=== PATIENT | female | born 1955 | race Caucasian/White ===

== ENCOUNTER → 2016-10-13 | Outpatient (CLI) | payer OTHER ==
[2014-06-01 13:10] VITALS: BP 101/58
[~2016-10-13] MED LIST: ASPI-482 PO; CALC600T4 PO; ESTR1PAT68 TD; LEVO50TA5 PO; MULT-245 PO; OMEG500C3 PO; PRAV80TA2 PO
--- NOTE | 2016-10-13 15:40 | KCIC ---
PROCEDURE Bone density. HISTORY Postmenopausal, screening. Hyperthyroidism. COMPARISON Bone density 10/12/2014. FINDINGS Dual photon densitometry of the lumbar spine and left proximal femur is performed. Bone mineral density values are measured in grams per cm2. Lumbar spine, L1-L4, total bone mineral density 1.140, T-score 0.8, Z-score 2.5. There has been a 4.8 percent increase in the bone mineral density since the prior study. Left total femur bone mineral density 1.086, T-score 1.2, Z-score 2.3. No significant change since prior study. World Health Organization criteria for bone mineral density interpretation classify patient's as normal (T-score at or above -1.0), osteopenic (T-score between -1 and -2.5), or osteoporotic (T-score at or below -2.5). IMPRESSION Normal bone mineral density of the lumbar spine and left femur. Electronically signed by: Claude Cast MD (October 13, 2016 15:39:02)
== END | disposition home or self-care (01) ==
LOC: KCIC DEXA 14:58
PROVIDERS: ATTEND Physician Assistant Surgical
DX: Z78.0 Asymptomatic menopausal state (principal); M85.88 Other specified disorders of bone density and structure, other site
CPT/HCPCS: 77080

== ENCOUNTER → 2016-11-07 | Outpatient (CLI) | payer OTHER ==
[2016-07-29 07:33] VITALS: BP 152/88
[~2016-11-07] MED LIST changes: +AMOX1TAB61 PO; +ESTR-9 TD; -ESTR1PAT68 TD
[2016-11-07 09:06] LABS: BASO % 1 % (0-3); EOS % 3 % (0-3); HEMATOCRIT 43.9 % (36.0-47.0); HEMOGLOBIN 14.9 g/dL (12.0-15.5); LYMPH # 1.6 x10^3/uL (1.0-4.8); LYMPH % 37 % (24-48); MEAN CORPUSCULAR HEMOGLOBIN 31 pg (25-35); MEAN CORPUSCULAR HGB CONC 34 g/dL (31-37); MEAN CORPUSCULAR VOLUME 91 fL (79-100); MONO % 8 % (0-9); NEUT % 51 % (31-73); PLATELET COUNT 225 x10^3/uL (140-400); RED BLOOD COUNT 4.82 x10^6/uL (3.50-5.40); RED CELL DISTRIBUTION WIDTH 12.5 % (11.5-14.5); WHITE BLOOD COUNT 4.4 x10^3/uL (4.0-11.0)
[2016-11-07 09:13] LABS: ALBUMIN 4.3 g/dL (3.4-5.0); ALBUMIN/GLOBULIN RATIO 1.2 (1.0-1.7); CREATININE 0.7 mg/dL (0.6-1.0); GFR 84.5; POTASSIUM 4.1 mmol/L (3.5-5.1); TOTAL BILIRUBIN 0.5 mg/dL (0.2-1.0); TOTAL PROTEIN 7.8 g/dL (6.4-8.2)
[2016-11-07 09:14] LABS: CHOLESTEROL/HDL RATIO 2.4
[2016-11-07 09:23] LABS: FREE T4 0.7 ng/dL (0.76-1.46)
== END | disposition home or self-care (01) ==
LOC: MERGE 08:23 → LAB 08:23
PROVIDERS: ATTEND Physician Assistant Surgical
DX: I10 Essential (primary) hypertension (principal); E03.9 Hypothyroidism, unspecified; E78.5 Hyperlipidemia, unspecified
CPT/HCPCS: 36415; 80053; 80061; 84436; 84439; 84443; 84479; 85027

== ENCOUNTER → 2017-05-15 | Outpatient (CLI) | payer OTHER ==
[2016-07-29 07:33] VITALS: BP 152/88
--- NOTE | 2017-05-15 09:13 | RAD ---
DATE: 05/15/2017 EXAM: DIGITAL SCREEN BILAT W/CAD HISTORY: Screening study. COMPARISON: 05/05/2016 This study was interpreted with the benefit of Computerized Aided Detection (CAD). The breast parenchyma is heterogeneously dense, which could reduce sensitivity of mammography. Breast parenchyma level C. FINDINGS: Digital MLO and CC mammograms of both breasts were obtained. Comparison study is dated 05/05/2016. The breast parenchyma is composed of scattered fibroglandular densities which can obscure a lesion on mammography (breast density code C). No spiculated mass is seen. No malignant appearing calcification or area of architectural distortion is noted. A few benign-appearing calcifications are seen within both breasts. The previous examination has been no significant change. IMPRESSION: BI-RADS Category 1, negative. There is no mammographic evidence malignancy. Routine yearly screening mammography is recommended for follow-up. BI-RADS CATEGORY: 1 NEGATIVE RECOMMENDED FOLLOW-UP: 12M 12 MONTH FOLLOW-UP PQRS compliance statement: Patient information was entered into a reminder system with a target due date 05/15/2018 for the next mammogram. Mammography is a sensitive method for finding small breast cancers, but it does not detect them all and is not a substitute for careful clinical examination. A negative mammogram does not negate a clinically suspicious finding and should not result in delay in biopsying a clinically suspicious abnormality. "Our facility is accredited by the [employer] Mammography [employer]."
== END | disposition home or self-care (01) ==
LOC: MAMMO 08:01
PROVIDERS: ATTEND Obstetrics & Gynecology
DX: Z12.31 Encounter for screening mammogram for malignant neoplasm of breast (principal)
CPT/HCPCS: G0202; 77067

== ENCOUNTER → 2017-06-12 | Outpatient (CLI) | payer OTHER | END | disposition home or self-care (01) | LOC: SPEC 09:48 | DX: Z01.419 Encounter for gynecological examination (general) (routine) without abnormal findings (principal) | CPT/HCPCS: 88175 ==

== ENCOUNTER → 2017-12-04 | Outpatient (CLI) | payer OTHER ==
[2017-12-04 07:27] LABS: ADD MAN DIFF? NO
[2017-12-04 07:42] LABS: BASO % 0 % (0-3); EOS # 0.1 x10^3/uL (0.0-0.7); EOS % 2 % (0-3); HEMATOCRIT 44.4 % (36.0-47.0); HEMOGLOBIN 15.5 g/dL (12.0-15.5); LYMPH # 1.8 x10^3/uL (1.0-4.8); LYMPH % 28 % (24-48); MEAN CORPUSCULAR HEMOGLOBIN 32 pg (25-35); MEAN CORPUSCULAR HGB CONC 35 g/dL (31-37); MEAN CORPUSCULAR VOLUME 91 fL (79-100); MONO # 0.5 x10^3/uL (0.0-1.1); MONO % 7 % (0-9); NEUT % 62 % (31-73); PLATELET COUNT 252 x10^3/uL (140-400); RED CELL DISTRIBUTION WIDTH 12.2 % (11.5-14.5); WHITE BLOOD COUNT 6.4 x10^3/uL (4.0-11.0)
[2017-12-04 07:54] LABS: ALBUMIN 4.4 g/dL (3.4-5.0); ALBUMIN/GLOBULIN RATIO 1.3 (1.0-1.7); ALK PHOS 55 U/L (46-116); ALT (SGPT) 28 U/L (14-59); ANION GAP 9 (6-14); AST (SGOT) 17 U/L (15-37); BLOOD UREA NITROGEN 18 mg/dL (7-20); BUN/CREATININE RATIO 23 (6-20); CALCIUM 8.7 mg/dL (8.5-10.1); CARBON DIOXIDE 27 mmol/L (21-32); CHLORIDE 102 mmol/L (98-107); CHOLESTEROL 225 mg/dL (0-200); CREATININE 0.8 mg/dL (0.6-1.0); GFR 72.2; GLUCOSE 109 mg/dL (70-99); HDLC 82 mg/dL (40-60); LDLC 131 mg/dL (0-100); NON-HDL CHOLESTEROL 143 mg/dL (0-129); POTASSIUM 4.3 mmol/L (3.5-5.1); SODIUM 138 mmol/L (136-145); TOTAL BILIRUBIN 0.7 mg/dL (0.2-1.0); TOTAL PROTEIN 7.8 g/dL (6.4-8.2); TRIGLYCERIDES 62 mg/dL (0-150); VLDLC 12 mg/dL (0-40)
[2017-12-04 07:55] LABS: CHOLESTEROL/HDL RATIO 2.7
[2017-12-04 14:44] LABS: THYROXINE 5.8 ug/dL (4.5-12.0)
[2017-12-04 22:19] LABS: HEMOGLOBIN A1C 5.2 % (4.8-5.6)
== END | disposition home or self-care (01) ==
LOC: LAB 07:06
DX: Z51.81 Encounter for therapeutic drug level monitoring (principal); Z13.1 Encounter for screening for diabetes mellitus; E03.9 Hypothyroidism, unspecified; E78.5 Hyperlipidemia, unspecified; R79.89 Other specified abnormal findings of blood chemistry
CPT/HCPCS: 36415; 80053; 80061; 82306; 83036; 84436; 84443; 85025

== ENCOUNTER 2017-12-28 19:45 | Inpatient (IN) | payer OTHER ==
[2017-12-28 20:05] LABS: ADD MAN DIFF? NO
[2017-12-28 20:08] LABS: BASO % 1 % (0-3); EOS # 0.1 x10^3/uL (0.0-0.7); EOS % 2 % (0-3); HEMATOCRIT 43.9 % (36.0-47.0); HEMOGLOBIN 15.3 g/dL (12.0-15.5); LYMPH # 2.8 x10^3/uL (1.0-4.8); LYMPH % 36 % (24-48); MEAN CORPUSCULAR HEMOGLOBIN 32 pg (25-35); MEAN CORPUSCULAR HGB CONC 35 g/dL (31-37); MEAN CORPUSCULAR VOLUME 92 fL (79-100); MONO # 0.5 x10^3/uL (0.0-1.1); MONO % 7 % (0-9); NEUT # 4.3 x10^3uL (1.8-7.7); NEUT % 56 % (31-73); PLATELET COUNT 257 x10^3/uL (140-400); RED CELL DISTRIBUTION WIDTH 12.5 % (11.5-14.5); WHITE BLOOD COUNT 7.8 x10^3/uL (4.0-11.0)
[2017-12-28] MEDS: IOHEXOL 300 MG/ML 100ML VIAL. IV (20:13)
[2017-12-28] MEDS ORDERED: CONTRAST GIVEN. MC (20:15)
[2017-12-28 20:17] LABS: INR 0.9 (0.8-1.1); PROTHROMBIN TIME PATIENT 11.9 SEC (11.7-14.0)
[2017-12-28 20:20] LABS: ANION GAP 8 (6-14); BLOOD UREA NITROGEN 17 mg/dL (7-20); BUN/CREATININE RATIO 19 (6-20); CARBON DIOXIDE 28 mmol/L (21-32); CHLORIDE 100 mmol/L (98-107); CREATININE 0.9 mg/dL (0.6-1.0); GLUCOSE 125 mg/dL (70-99); POTASSIUM 3.6 mmol/L (3.5-5.1); SODIUM 136 mmol/L (136-145)
[2017-12-28] MEDS: ASPIRIN 325 MG TABLET PO (20:25)
[2017-12-28] MEDS: NITROGLYCERIN OINT 1 GM PACKET. TP (20:27)
[2017-12-28 20:28] LABS: ALBUMIN 4.4 g/dL (3.4-5.0); ALBUMIN/GLOBULIN RATIO 1.2 (1.0-1.7); ALK PHOS 63 U/L (46-116); ALT (SGPT) 36 U/L (14-59); AST (SGOT) 32 U/L (15-37); LIPASE 157 U/L (73-393); MAGNESIUM 2.1 mg/dL (1.8-2.4); TOTAL BILIRUBIN 0.4 mg/dL (0.2-1.0)
[2017-12-28 20:34] LABS: CKMB INDEX 0.9 % (0-4); CKMB MASS 1.7 ng/mL (0.0-3.6); CREATINE KINASE 191 U/L (26-192)
[2017-12-28 20:34] LABS: NT-PRO BNP 20 pg/mL (0-124); TROPONINI < 0.017 ng/mL (0.000-0.055)
[2017-12-29 01:22] LABS: TROPONINI < 0.017 ng/mL (0.000-0.055)
[2017-12-29 04:21] LABS: TROPONINI < 0.017 ng/mL (0.000-0.055)
[2017-12-29 08:35] LABS: CHOLESTEROL 224 mg/dL (0-200); HDLC 76 mg/dL (40-60); LDLC 132 mg/dL (0-100); NON-HDL CHOLESTEROL 148 mg/dL (0-129); TRIGLYCERIDES 81 mg/dL (0-150); VLDLC 16 mg/dL (0-40)
[2017-12-29 08:36] LABS: CHOLESTEROL/HDL RATIO 2.9
[2017-12-29] MEDS ORDERED: ATORVASTATIN CALCIUM 40 MG TABLET. PO (21:00)
== END 2017-12-29 16:40 | disposition home or self-care (01) | DRG 313 ==
LOC: ER 19:45 → 5 SOUTH 21:10
DX: R07.89 Other chest pain (principal); I47.1 Supraventricular tachycardia; E03.9 Hypothyroidism, unspecified; E78.00 Pure hypercholesterolemia, unspecified; E78.5 Hyperlipidemia, unspecified; G47.00 Insomnia, unspecified; I10 Essential (primary) hypertension; K21.9 Gastro-esophageal reflux disease without esophagitis; M19.041 Primary osteoarthritis, right hand; M19.042 Primary osteoarthritis, left hand; Z79.890 Hormone replacement therapy; Z82.49 Family history of ischemic heart disease and other diseases of the circulatory system; Z83.3 Family history of diabetes mellitus; Z90.710 Acquired absence of both cervix and uterus; Z79.899 Other long term (current) drug therapy; Z79.82 Long term (current) use of aspirin
CPT/HCPCS: 36415; 71275; 78452; 80053; 80061; 82553; 83690; 83735; 83880; 84484; 85025; 85610; 93005; 93017; 93306; 96374; 96376; 99285-25; A9500; Q9967

== ENCOUNTER → 2018-04-20 | Outpatient (CLI) | payer OTHER ==
[2017-12-29 15:00] VITALS: BP 117/81
[~2018-04-20] MED LIST changes: +LISI1TAB3 PO
[2018-04-20 09:00] LABS: CALCIUM 8.8 mg/dL (8.5-10.1); CREATININE 0.8 mg/dL (0.6-1.0); DIRECT BILIRUBIN 0.1 mg/dL (0.0-0.2); GFR 72.2; POTASSIUM 3.8 mmol/L (3.5-5.1); TOTAL BILIRUBIN 0.6 mg/dL (0.2-1.0); TOTAL PROTEIN 7.7 g/dL (6.4-8.2)
[2018-04-20 09:02] LABS: CHOLESTEROL/HDL RATIO 2.7
== END | disposition home or self-care (01) ==
LOC: LAB 06:42
PROVIDERS: ATTEND Internal Medicine Cardiovascular Disease
DX: E78.5 Hyperlipidemia, unspecified (principal); I10 Essential (primary) hypertension; R53.82 Chronic fatigue, unspecified
CPT/HCPCS: 36415; 80048; 80061; 80076; 84443

== ENCOUNTER → 2018-06-21 | Outpatient (CLI) | payer OTHER ==
[2017-12-29 15:00] VITALS: BP 117/81
--- NOTE | 2018-06-22 10:07 | RAD ---
DATE: 06/21/2018 EXAM: MAMMO LUCIO SCREENING BILATERAL HISTORY: Screening Mammogram COMPARISON: Mammogram 05/15/2017, 05/05/2016, 05/04/2015 This study was interpreted with the benefit of Computerized Aided Detection (CAD). The breast parenchyma shows scattered fibroglandular densities. Breast parenchyma level B. FINDINGS: Bilateral digital 2-D and 3-D tomosynthesis CC and MLO views. Stable bilateral, lateral intramammary lymph nodes. No suspicious mass, calcification or architectural distortion. No significant change from prior examination IMPRESSION: No mammographic evidence of malignancy. Recommend routine screening mammogram in 12 months. BI-RADS CATEGORY: 1 NEGATIVE RECOMMENDED FOLLOW-UP: 12M 12 MONTH FOLLOW-UP PQRS compliance statement: Patient information was entered into a reminder system with a target due date for the next mammogram. Mammography is a sensitive method for finding small breast cancers, but it does not detect them all and is not a substitute for careful clinical examination. A negative mammogram does not negate a clinically suspicious finding and should not result in delay in biopsying a clinically suspicious abnormality. "Our facility is accredited by the [employer] Mammography [employer]."
== END | disposition home or self-care (01) ==
LOC: MAMMO 07:34
PROVIDERS: ATTEND Obstetrics & Gynecology
DX: Z12.31 Encounter for screening mammogram for malignant neoplasm of breast (principal)
CPT/HCPCS: 77063; 77067

== ENCOUNTER → 2018-08-17 | Outpatient (CLI) | payer OTHER ==
[2017-12-29 15:00] VITALS: BP 117/81
== END | disposition home or self-care (01) ==
LOC: SPEC 16:42
PROVIDERS: ATTEND Obstetrics & Gynecology
DX: R82.90 Unspecified abnormal findings in urine (principal)
CPT/HCPCS: 87086

== ENCOUNTER → 2018-10-15 | Outpatient (CLI) | payer OTHER ==
[2017-12-29 15:00] VITALS: BP 117/81
--- NOTE | 2018-10-19 10:56 | CARD ---
MR#: [id number] Date of Study: 10/15/2018 Ordering Physician: MARCELLA LUCAS, Referring Physician: MARCELLA LUCAS, Tech: Cici Sawyer HEMAL APPROVED REPORT EXAM: Two-dimensional and M-mode echocardiogram with Doppler and color Doppler. Other Information Quality : Good INDICATION Dyspnea on Exertion 2D DIMENSIONS RVDd2.3 (2.9-3.5cm)Left Atrium(2D)3.5 (1.6-4.0cm) IVSd0.8 (0.7-1.1cm)Aortic Root(2D)2.7 (2.0-3.7cm) LVDd4.8 (3.9-5.9cm)LVOT Diameter2.0 (1.8-2.4cm) PWd0.8 (0.7-1.1cm)LVDs2.4 (2.5-4.0cm) FS (%) 30.0 %SV89.7 ml LVEF(%)60.0 (>50%) Aortic Valve AoV Peak Daniel.150.4cm/sAoV VTI30.0cm AO Peak GR.9.1mmHgLVOT Peak Daniel.116.9cm/s AO Mean GR.4mmHgAVA (VMAX)2.44cm2 AMANDA (VTI)2.60cm2 Mitral Valve MV E Pckltcox82.2cm/sMV DECEL [id number] MV A Cwccdwpt95.3cm/sE/A Ratio1.2 Tricuspid Valve TR P. Ehugpvlz775im/sRAP ZHAWSNAR2nhEw TR Peak Gr.50ciAlDJQU34gtZa Pulmonary Vein S1 Fixqqsfd31.2cm/sD2 Xqwmkiwi92.5cm/s LEFT VENTRICLE The left ventricle is normal size. There is borderline concentric left ventricular hypertrophy. The l eft ventricular systolic function is normal and the ejection fraction is within normal range. The Eje ction Fraction is 55-60%. There is normal LV segmental wall motion. Transmitral Doppler flow pattern is Grade I-abnormal relaxation pattern. RIGHT VENTRICLE The right ventricle is normal size. The right ventricular systolic function is normal. ATRIA The left atrium size is normal. The right atrium size is normal. The interatrial septum is intact wit h no evidence for an atrial septal defect or patent foramen ovale as noted on 2-D or Doppler imaging. AORTIC VALVE The aortic valve is calcified but opens well. Doppler and Color Flow revealed no significant aortic r egurgitation. There is no significant aortic valvular stenosis. MITRAL VALVE The mitral valve is normal in structure and function. There is no evidence of mitral valve prolapse. There is no mitral valve stenosis. Doppler and Color-flow revealed trace mitral regurgitation. TRICUSPID VALVE The tricuspid valve is normal in structure and function. Doppler and Color Flow revealed trace tricus pid regurgitation. The PA pressure was estimated at 32 mmHg. There is no tricuspid valve stenosis. PULMONIC VALVE The pulmonic valve is not well visualized. Doppler and Color Flow revealed no pulmonic valvular regur gitation. There is no pulmonic valvular stenosis. GREAT VESSELS The aortic root is normal in size. The ascending aorta is not well seen. The IVC is normal in size an d collapses >50% with inspiration. PERICARDIAL EFFUSION There is no evidence of significant pericardial effusion. Critical Notification Critical Value: No <Conclusion> The left ventricle is normal size. The left ventricular systolic function is normal and the ejection fraction is within normal range. The Ejection Fraction is 55-60%. There is borderline concentric left ventricular hypertrophy. There is no significant aortic valvular stenosis. Doppler and Color Flow revealed no significant aortic regurgitation. Doppler and Color-flow revealed trace mitral regurgitation. Doppler and Color Flow revealed trace tricuspid regurgitation. The PA pressure was estimated at 32 mmHg. Signed by : Marcella Lucas MD Electronically Approved : 10/15/2018 09:27:18
== END | disposition home or self-care (01) ==
LOC: ECHO 07:37
PROVIDERS: ATTEND Internal Medicine Cardiovascular Disease
DX: I51.7 Cardiomegaly (principal); Z95.2 Presence of prosthetic heart valve
CPT/HCPCS: 93306

== ENCOUNTER → 2019-01-14 | Outpatient (CLI) | payer OTHER ==
[2017-12-29 15:00] VITALS: BP 117/81
--- NOTE | 2019-01-14 08:52 | RAD ---
Indication: Chronic bilateral hand pain. TECHNIQUE: Multiple views of the bilateral hands COMPARISON: None FINDINGS: Left hand: No acute fracture or dislocation. Mild first CMC joint also arthritis. 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 Right hand: No acute fracture or dislocation. Moderate second finger and advanced third finger DIP joint osteoarthritis. Mild interphalangeal joint osteoarthritis in the thumb. IMPRESSION: As above. Electronically signed by: Aidan Barros DO (01/14/2019 8:49 AM) [facility]
== END | disposition home or self-care (01) ==
LOC: RAD 06:44
PROVIDERS: ATTEND Nurse Practitioner Gerontology
DX: M19.042 Primary osteoarthritis, left hand (principal); M19.041 Primary osteoarthritis, right hand; G89.29 Other chronic pain
CPT/HCPCS: 73130

== ENCOUNTER → 2019-08-08 | Outpatient (CLI) | payer OTHER ==
[2017-12-29 15:00] VITALS: BP 117/81
[~2019-08-08] MED LIST changes: +LISI1TAB23 PO; -LISI1TAB3 PO
--- NOTE | 2019-08-10 08:47 | RAD ---
History: Routine screening. Technique: Bilateral digital mammographic routine views were obtained with 2-D and 3-D technique including CAD - computer aided detection. Comparison: 06/21/2018, 05/15/2017. Findings: Breast Tissue Density B :The breast tissue is composed of mixed fatty and fibroglandular tissue. There are no suspicious masses, microcalcifications or areas of architectural distortion. Impression: Negative mammogram. BI-RADS Category 1: Negative. Normal interval followup. A mammogram does not have 100% sensitivity and therefore a negative imaging study should not delay further work up of a suspicious abnormality. The patient will receive a letter with the results in the mail. Patient information is entered into the reminder system with a target due date for the next screening mammogram. The patient will receive a reminder. "Our facility is accredited by the [employer] Mammography Program." BI-RADS 1 -- negative findings (within normal)
== END | disposition home or self-care (01) ==
LOC: MAMMO 14:29
PROVIDERS: ATTEND Obstetrics & Gynecology
DX: Z12.31 Encounter for screening mammogram for malignant neoplasm of breast (principal)
CPT/HCPCS: 77063; 77067

== ENCOUNTER → 2019-11-07 | Outpatient (CLI) | payer OTHER ==
[2017-12-29 15:00] VITALS: BP 117/81
[2019-11-07 07:33] LABS: HEMOGLOBIN 14.5 g/dL (12.0-15.5); RED BLOOD COUNT 4.62 x10^6/uL (3.50-5.40); RED CELL DISTRIBUTION WIDTH 12.3 % (11.5-14.5); WHITE BLOOD COUNT 3.8 x10^3/uL (4.0-11.0)
[2019-11-07 08:03] LABS: FREE T4 0.92 ng/dL (0.76-1.46); THYROID STIM HORMONE (TSH) 2.304 uIU/mL (0.358-3.74)
[2019-11-07 08:19] LABS: ALBUMIN/GLOBULIN RATIO 1.3 (1.0-1.7); ALK PHOS 44 U/L (46-116); ALT (SGPT) 26 U/L (14-59); ANION GAP 13 (6-14); AST (SGOT) 22 U/L (15-37); BLOOD UREA NITROGEN 13 mg/dL (7-20); BUN/CREATININE RATIO 13 (6-20); CALCIUM 8.7 mg/dL (8.5-10.1); CARBON DIOXIDE 22 mmol/L (21-32); CHLORIDE 105 mmol/L (98-107); CHOLESTEROL 176 mg/dL (0-200); GFR 55.5; GLUCOSE 98 mg/dL (70-99); HDLC 79 mg/dL (40-60); LDLC 84 mg/dL (0-100); SODIUM 140 mmol/L (136-145); TOTAL BILIRUBIN 0.4 mg/dL (0.2-1.0); TOTAL PROTEIN 7.2 g/dL (6.4-8.2); TRIGLYCERIDES 63 mg/dL (0-150); VLDLC 13 mg/dL (0-40)
[2019-11-07 08:21] LABS: C-REACTIVE PROTEIN < 0.5 mg/L (0-3.3); CHOLESTEROL/HDL RATIO 2.2
== END | disposition home or self-care (01) ==
LOC: LAB 06:06
PROVIDERS: ATTEND Nurse Practitioner Gerontology
DX: M05.79 Rheumatoid arthritis with rheumatoid factor of multiple sites without organ or systems involvement (principal); E78.5 Hyperlipidemia, unspecified; I10 Essential (primary) hypertension; E03.9 Hypothyroidism, unspecified
CPT/HCPCS: 36415; 80053; 80061; 84439; 84443; 85027; 86140

== ENCOUNTER → 2019-12-12 | Outpatient (CLI) | payer OTHER ==
[2017-12-29 15:00] VITALS: BP 117/81
[~2019-12-12] MED LIST changes: -CALC600T4 PO; +CALC600T5 PO
== END | disposition home or self-care (01) ==
LOC: SPEC 13:44
PROVIDERS: ATTEND Nurse Practitioner Women's Health
DX: Z01.419 Encounter for gynecological examination (general) (routine) without abnormal findings (principal)
CPT/HCPCS: 88175

== ENCOUNTER → 2019-12-14 | Outpatient (CLI) | payer OTHER ==
[2017-12-29 15:00] VITALS: BP 117/81
[~2019-12-14] MED LIST changes: -CALC600T5 PO; +CALC600T6 PO
--- NOTE | 2019-12-14 15:29 | KCIC ---
INDICATION: Osteoporosis screening. Postmenopausal follow-up COMPARISON: 10/13/2016 TECHNIQUE: Bone densitometry was performed through the lumbar spine and proximal femur. FINDINGS: Lumbar Spine: BMD: 1.1 T-Score: 0.7 Decreased by 1 percent from prior Proximal Femur: BMD: 1.1 T-Score: 1.3 Increased by 1 percent from prior IMPRESSION: 1. Lumbar spine falls within the normal range. 2. Proximal femur falls within the normal range. Electronically signed by: Richard Nash MD (12/14/2019 3:26 PM) [id number]
== END ==
LOC: KCIC DEXA 14:35
PROVIDERS: ATTEND Nurse Practitioner Gerontology
DX: M85.80 Other specified disorders of bone density and structure, unspecified site (principal); N95.8 Other specified menopausal and perimenopausal disorders
CPT/HCPCS: 77080

== ENCOUNTER → 2019-12-22 | Outpatient (CLI) | payer OTHER ==
[2017-12-29 15:00] VITALS: BP 117/81
[~2019-12-22] MED LIST changes: +CALC600T5 PO; -CALC600T6 PO
--- NOTE | 2019-12-23 11:05 | RAD ---
Examination: 1. Bilateral digital diagnostic mammogram 2. Limited left breast ultrasound. INDICATION: 64-year-old woman with 2 weeks of spontaneous left nipple bloody discharge and nipple retraction. No tenderness or lump. Bilateral mammogram with ultrasound if indicated was requested by patient's referring provider although no specific concerns for the right breast were raised. COMPARISON: Mammograms of 01/12/2012 and 08/08/2019. TECHNIQUE: Bilateral CC and MLO views were obtained with 2-D and 3-D technique and reviewed with computer-aided detection. Thereafter, targeted ultrasound of the subareolar left breast was performed. FINDINGS: Digital bilateral diagnostic mammogram with 2-D and 3-D technique shows scattered fibroglandular densities with no dominant mass, suspicious calcifications architectural distortion. There is left nipple inversion, similar to mammogram of approximately 4 months ago. No suspicious interval change. No skin thickening or trabecular coarsening. Targeted ultrasound of the subareolar left breast reveals no discrete mass or suspicious sonographic abnormality. Mildly increased vascularity at the nipple is present. IMPRESSION: Incomplete. Left breast needs additional imaging. Recommend bilateral breast MRI with and without IV contrast in further evaluation for nipple retraction and spontaneous left bloody nipple discharge. A surgical consult could also be of benefit to establish a baseline physical exam and to assist with clinical decision making regarding any clinically appropriate biopsy targets if present now or on future follow-up. Discussed with patient. BI-RADS Category 0 Incomplete. Needs additional imaging evaluation. Discussed with patient's referring provider Cynthia Man by telephone at 9:42 AM on 12/23/2019.
== END | disposition home or self-care (01) ==
LOC: MAMMO 10:03
PROVIDERS: ATTEND Obstetrics & Gynecology
DX: R92.2 Inconclusive mammogram (principal); N64.52 Nipple discharge
CPT/HCPCS: 76641; 77066; G0279; 77062

== ENCOUNTER → 2019-12-22 | Outpatient (CLI) | payer OTHER ==
[2017-12-29 15:00] VITALS: BP 117/81
[~2019-12-22] MED LIST changes: -CALC600T5 PO; +CALC600T6 PO
== END ==
LOC: LAB 09:56
PROVIDERS: ATTEND Nurse Practitioner Women's Health
DX: N64.52 Nipple discharge (principal)
CPT/HCPCS: 36415; 84146

== ENCOUNTER → 2020-01-31 | Outpatient (CLI) | payer OTHER ==
[2017-12-29 15:00] VITALS: BP 117/81
== END | disposition home or self-care (01) ==
LOC: SPEC 16:37
PROVIDERS: ATTEND Surgery
DX: N64.52 Nipple discharge (principal)
CPT/HCPCS: 88104

== ENCOUNTER → 2020-02-09 | Outpatient (CLI) | payer OTHER ==
[2017-12-29 15:00] VITALS: BP 117/81
[~2020-02-09] MED LIST changes: +IOHEXOL 300 MG/ML 50 ML VIAL. IJ ONE
--- NOTE | 2020-02-10 16:10 | RAD ---
Left breast ductogram INDICATION: 64-year-old woman with 2 months of clear spontaneous nipple discharge which has been occasionally reported to be bloody. She also notes new nipple inversion, most pronounced with arm elevation. COMPARISON: Bilateral 3D screening mammogram of 08/08/2019 and 06/21/2018, bilateral digital diagnostic mammogram with 2-D and 3-D technique of 12/22/2019 and limited left breast ultrasound that same day. Bilateral MRI breast with and without IV contrast of 01/06/2020 also reviewed. TECHNIQUE AND FINDINGS: Focused clinical exam revealed an asymmetrically inverted left nipple with no crusting or skin thickening. Clear, teo-colored left nipple discharge was expressible without a specific trigger point. Nipple inversion was temporarily reversible with gentle nipple stimulation (such as with the use of a povidone iodine swab for skin cleansing prior to ductography) and I did not appreciate a palpable mass in the left breast on focused clinical exam. There is no skin erythema or nipple discoloration. Using a magnifying lens headset and a 30 gauge SandraScreen Fix Gibson ductogram cannula, I cannulated the left nipple and infused 0.5 mL Omnipaque 300 into it until retrograde flow occured from the nipple. The cannula was taped to the skin surface and 2-D diagnostic mammograms of the left breast were obtained in the CC and ML projections. These revealed heterogeneously dense breast parenchyma with an ectatic central duct measuring nearly 4 mm in diameter with tapered narrowing along a central branch, best illustrated on the MLO view. This could reflect intraductal debris or intraductal mass causing luminal stenosis. Presence of a proliferative process such as a papilloma could explain the nipple discharge and ectasia of the cannulated duct on the current study. In correlation with the recently performed breast MRI, linear enhancement in the central posterior left breast (best illustrated on axial image 41 of series 6 on the immediate postcontrast sequence compared with the precontrast sequence series 5 that same exam) could correlate with the filling defect identified on current ductography. IMPRESSION: Filling defect in a branch of a dilated central duct is of low index of suspicion for malignancy, more than likely representing duct ectasia with debris or a benign intraductal papilloma. However, although index of suspicion for malignancy is low, it is not low enough to recommend short-term follow-up. Biopsy should be considered. Options for biopsy include surgical subareolar duct excision (with or without presurgical needle localization), ultrasound-guided core needle biopsy following second look ultrasound (which would be facilitated by occluding the nipple with an agent such as Dermabond several days prior to the procedure), or stereotactic biopsy of the filling defect following preprocedural ductography with iodinated contrast. Recommend patient consult with her surgeon regarding options for tissue sampling and reach a jointly informed decision regarding further workup. Should she choose to pursue biopsy with imaging guidance, as the radiologist most familiar with her imaging workup to date, I would be happy to supervise and perform any imaging guided biopsy if so requested. BI-RADS Category 4 Findings suspicious for malignancy Biopsy should be considered Discussed with Dr. Camilo George by telephone at 2:34 PM on February 10, 2020. Electronically signed by: Katerin Husain MD (02/10/2020 4:07 PM) [id number]
== END | disposition home or self-care (01) ==
LOC: MAMMO 14:21
PROVIDERS: ATTEND Surgery
DX: N64.52 Nipple discharge (principal); I10 Essential (primary) hypertension; E03.9 Hypothyroidism, unspecified; E78.5 Hyperlipidemia, unspecified; K21.9 Gastro-esophageal reflux disease without esophagitis; E78.00 Pure hypercholesterolemia, unspecified; Z79.899 Other long term (current) drug therapy; Z98.890 Other specified postprocedural states
CPT/HCPCS: 19030; 77053; Q9967

== ENCOUNTER → 2020-03-01 | Outpatient (CLI) | payer OTHER ==
[2017-12-29 15:00] VITALS: BP 117/81
[~2020-03-01] MED LIST changes: +CHOL500050 PO; +HYDR-3164 PO; +HYDR200T5 PO; -IOHEXOL 300 MG/ML 50 ML VIAL. IJ ONE
== END ==
LOC: LAB 14:03
PROVIDERS: ATTEND Surgery
DX: Z01.812 Encounter for preprocedural laboratory examination (principal); Z20.828 Contact with and (suspected) exposure to other viral communicable diseases; N64.52 Nipple discharge
CPT/HCPCS: U0003-CS

== ENCOUNTER → 2020-03-05 | Day surgery (SDC) | payer OTHER ==
[~2020-03-05] VITALS: Ht 157.5 cm; Wt 73.4 kg
[~2020-03-05] MED LIST changes: +BUPIVACAINE-EPI 0.5%-1:200000 MPF 30 ML VIAL. INJ ONE; +CONTRAST GIVEN. MC PRN; +DEXAMETHASONE SOD PHOS 4 MG/ML VIAL ONE; +HYDROcodone/APAP 5/325MG 1 TAB TABLET PO ONE; +HYDROmorphone 2 MG/ML VIAL IV PRN; +IOHEXOL 300 MG/ML 50 ML VIAL. IJ ONE; +IV RINGERS,LACTATED 1000ML 1,000 ML IV SCH; +LIDOCAINE 1% PF 2 ML VIAL. ID PRN; +LIDOCAINE 2% PF 5 ML VIAL. ONE; +MIDAZOLAM HCL/PF 2 MG/2 ML VIAL. ONE; +MORPHINE SULFATE 2 MG/ML VIAL. IV PRN; +ONDANSETRON PF 4 MG/2 ML VIAL. ONE; +PROCHLORPERAZINE 10 MG/2 ML VIAL. IV PRN; +PROPOFOL 10 MG/ML (20ML) VIAL. IV ONE; +SEVOFLURANE 31 TO 60 MINUTES. IH ONE; +ePHEDrine PF IN SALINE 50 MG/10 ML SYRINGE. IV ONE; +fentaNYL PF VIAL 100 MCG/2 ML VIAL IV PRN; +fentaNYL PF VIAL 100 MCG/2 ML VIAL ONE
--- NOTE | 2020-03-05 11:13 | RAD ---
Examination: 1. Left breast ductogram 2. Mammogram guided left breast needle localization. INDICATION: 64-year-old woman with spontaneous clear left nipple discharge and de jax nipple inversion for the past 2 -3 months, recommended for biopsy based on abnormal prior ductogram. Surgical biopsy elected but preoperative ductogram for surgical planning requested. Comparison: Left diagnostic mammogram and targeted left breast ultrasound of 12/22/2019, Bilateral breast MRI with and without IV contrast of 01/06/2020, and left ductogram of 02/09/2020. TECHNIQUE AND FINDINGS: Informed consent was obtained and an appropriate procedural pause observed. Using standard clean technique, 0.4 mL of Omnipaque 300 was injected into the discharging duct in the left nipple following satisfactory positioning of the ductogram cannula in the responsible duct. This was held in position with a small amount of Dermabond and skin tape. Two views of the left breast following satisfactory contrast administration showed a filling defect in the deep retroareolar dilated duct corresponding to the abnormality identified on earlier ductogram and recommended for biopsy. Attempt was made to visualize this filling defect on ultrasound but this proved difficult so mammography was selected as the imaging modality of choice for pursuing subsequent needle localization for surgical excisional biopsy. A 7.5 cm Rios needle was subsequently advanced from a lateral approach in the left breast through the filling defect in the dilated central duct under sterile technique and after initial application of local anesthesia. Following satisfactory confirmation of appropriate needle positioning, a hookwire was passed through the needle, encountering firm tissue during advancement. The needle was removed and subsequent postprocedure mammogram showed satisfactory positioning of the hook wire through the filling defect in the dilated central subareolar left mammary duct. There were no apparent complications. Puncture site was dressed, the ductogram cannula was removed, and patient transferred in stable condition to the operating room for further care and management. IMPRESSION: 1. Left ductogram demonstrating persistence of a filling defect in a dilated subareolar left duct, still suspicious and recommended for biopsy. 2. Successful mammogram guided left breast needle localization of the filling defect identified on earlier same day left ductogram. No apparent complications. Electronically signed by: Katerin Husain MD (03/05/2020 11:10 AM) [id number]
--- NOTE | 2020-03-05 11:34 | PDOC4 ---
Operative Note Operative Note Operative Note: Preoperative Diagnosis: Left nipple drainage Postoperative Diagnosis: Same Procedure: Left breast biopsy with needle localization Surgeon: [employer] Mechanic: Tyrell RILEY Anesthesia: General EBL: 10 mL Specimen: Left breast biopsy to pathology Drains: None Complications: None Indication: The patient is a 64-year-old female who has had persistent left nipple drainage. Her evaluation including a ductogram which showed a dilated duct with potential filling defect and intraductal mass. The plan is to proceed with an excisional biopsy of the region in question. Wire localization will be performed in radiology. The risks of surgery were discussed with the patient which include bleeding, infection, pain, scar tissue, anesthetic risk, potential need for additional surgery procedure. She understands and would like to proceed. Description: The patient initially was taken to radiology where she underwent wire localization. She was then brought to the operating room and placed supine on the operating table. General anesthesia was performed. The left breast was prepped with ChloraPrep and draped in a standard surgical manner. The wire was entering the left breast in the lateral aspect near the 3 o'clock position. A curved incision was made extending from the 2 to 4 o'clock position at the junction of the areola. Cautery dissection was carried out into the breast parenchyma. The wire was identified. Dissection continued following the wire to its distal tip. Full excision of the tissue surrounding the wire was performed with cautery. The specimen was fully excised and sent to pathology for evaluation. Hemostasis was achieved with cautery. The subcutaneous tissue was closed with 3-0 Vicryl. The skin was closed with 4-0 Monocryl. The incision was infiltrated with half percent Marcaine with epinephrine. Steri- Strips and a sterile dressing were then applied. The patient tolerated the procedure well and sent to the covering room in stable condition. At the end of the case all counts are correct. CARLOS DANIELS MD Mar 05, 2020 11:34
--- NOTE | 2020-03-05 11:36 | DISCH ---
DISCHARGE INSTRUCTIONS Condition on Discharge Condition on Discharge: Stable Activity After Discharge Activity Instructions for Disc: Resume previous activity Driving Instructions after Dis: Other, see below (no driving while taking pain meds) Diet after Discharge Diet after Discharge: Regular Wound Incision Care Wound/Incision Care: Other, see below (keep dressing clean and dry X 72 hours, may then remove and shower) Follow-Up Follow up with: Dr Daniels in 1 week, call for appointment [phone] CARLOS DANIELS MD Mar 05, 2020 11:36
[2020-03-05 12:30] VITALS: BP 135/67
--- NOTE | 2020-03-12 19:07 | PATHOLOGY ---
[facility] Accession Number: [id number] . 01 Material submitted: . breast - LEFT BREAST BIOPSY. Modifiers: left . 01 Clinical history: . NIPPLE DISCHARGE, LEFT BREAST BIOPSY NEEDLE LOCALIZATION . 02 Diagnosis: Breast "left", needle localization biopsy: - Intraductal papilloma; negative for atypia and malignancy. - Fibrocystic changes including usual ductal hyperplasia, cyst formation, dense fibrosis, adenosis, apocrine metaplasia, and sclerosing adenosis. - Microcalcifications. - Please see comment. (MLK:danita; 03/09/2020) S 03/12/2020 1810 Local . 02 Comment: The case is seen on co-review with Dr. Volodymyr Calderon. (K:danita; 03/09/2020) . 02 Electronically signed: . Juan Carlos Goyal MD, Pathologist NPI- [id number] . 01 Gross description: . The specimen is received in formalin, labeled "Amena Hartmann, left breast biopsy". Received is a 25 g unoriented segment of bright yellow fibroadipose tissue measuring 6.3 x 4.3 x 2.5 cm in greatest dimensions. The surgical margin is inked. Sectioning reveals bright yellow, lobulated to white, fibrous cut surfaces throughout with no grossly distinct nodules or lesions. Alternating sections are submitted in cassettes A1 through A14. The cold ischemic time is 6 minutes. The total formalin fixation time is 36 hours and 27 minutes. ([facility]; 03/06/2020) . After initial microscopic examination, the remainder of the specimen is submitted in cassettes A15 through A27. ([facility]; 03/07/2020) QAC/QAC 03/07/2020 1835 Local . 02 Microscopic: . Immunohistochemical stain results (properly controlled): . CK5/6 (blocks A2 and A16) - highlights ductal epithelial cells within papilloma with a mosaic pattern. . P63 (blocks A2 and A16) - highlights myoepithelial cells within the papilloma. . (MLK:danita; 03/09/2020) . 02 Pathologist provided ICD-10: D24.2, N60.12, N60.02, N60.32, N60.22, N60.82, N62 . 02 CPT . 646764, P04676, N69481 Specimen Comment: A courtesy copy of this report has been sent to [phone] Specimen Comment: Report sent to Performed at: [address], [place] [id number] MD Red Cortez MD Phone: [phone] Performed at: [facility] [address] [place], [place] [id number] MD Volodymyr Calderon MD Phone: [phone]
== END ==
LOC: SURG 07:22
PROVIDERS: ATTEND Surgery
DX: D24.2 Benign neoplasm of left breast (principal); N64.52 Nipple discharge; N60.02 Solitary cyst of left breast; N60.32 Fibrosclerosis of left breast; N60.22 Fibroadenosis of left breast; N60.82 Other benign mammary dysplasias of left breast; N62 Hypertrophy of breast; I10 Essential (primary) hypertension; K21.9 Gastro-esophageal reflux disease without esophagitis; E03.9 Hypothyroidism, unspecified; E78.5 Hyperlipidemia, unspecified; Z79.82 Long term (current) use of aspirin; Z79.899 Other long term (current) drug therapy
CPT/HCPCS: 19030; 19120; 19281; 77054; 88305; 88341; 88342; A7015; J0690; J1100; J2250; J2405; J2704; J3010; Q9967

== ENCOUNTER 2020-03-27 05:06 | Inpatient (IN) | payer OTHER, MEDICARE ==
[~2020-03-27] VITALS: Ht 157.5 cm; Wt 70.1 kg
[~2020-03-27 05:06] MED LIST changes: -BUPIVACAINE-EPI 0.5%-1:200000 MPF 30 ML VIAL. INJ ONE; -CONTRAST GIVEN. MC PRN; -DEXAMETHASONE SOD PHOS 4 MG/ML VIAL ONE; -HYDROcodone/APAP 5/325MG 1 TAB TABLET PO ONE; -HYDROmorphone 2 MG/ML VIAL IV PRN; -IOHEXOL 300 MG/ML 50 ML VIAL. IJ ONE; -IV RINGERS,LACTATED 1000ML 1,000 ML IV SCH; -LIDOCAINE 1% PF 2 ML VIAL. ID PRN; -LIDOCAINE 2% PF 5 ML VIAL. ONE; -MIDAZOLAM HCL/PF 2 MG/2 ML VIAL. ONE; -MORPHINE SULFATE 2 MG/ML VIAL. IV PRN; +MORPHINE SULFATE 4 MG/ML VIAL. IV PRN; -ONDANSETRON PF 4 MG/2 ML VIAL. ONE; -PROCHLORPERAZINE 10 MG/2 ML VIAL. IV PRN; -PROPOFOL 10 MG/ML (20ML) VIAL. IV ONE; -SEVOFLURANE 31 TO 60 MINUTES. IH ONE; -ePHEDrine PF IN SALINE 50 MG/10 ML SYRINGE. IV ONE; -fentaNYL PF VIAL 100 MCG/2 ML VIAL IV PRN; -fentaNYL PF VIAL 100 MCG/2 ML VIAL ONE
--- NOTE | 2020-03-27 06:00 | ED.ADGEN ---
Past Medical History Past Medical History: High Cholesterol, Hypertension, Hypothyroid Past Surgical History: Hysterectomy Smoking Status: Never Smoker Alcohol Use: None Drug Use: None General Adult EDM: Chief Complaint: FEVER HPI: HPI: Patient is a 64 year old female coming in for evaluation of subjective fever for the past 2 days, woke just prior to arrival covered with sweat. Patient states she has had minor congestion and occasional mild cough. She also states that she feels like her right side of her abdomen is distended but nontender. Has noticed darkening of her urine for the past 3 days. She denies any urinary urgency, frequency or dysuria. Had a mass removed from her left breast 2 weeks ago without complication with a well-healing wound. Review of Systems: Review of Systems: Constitutional: Subjective fever and sweats Eyes: Denies change in visual acuity. [] HENT: Nasal congestion without sore throat, no loss of taste or smell Respiratory: Mild occasional cough no shortness of breath Cardiovascular: Denies chest pain or edema. [] GI: Denies abdominal pain, nausea, vomiting, bloody stools or diarrhea. [] : Denies dysuria. [], Darker urine Musculoskeletal: Denies back pain or joint pain. [] Integument: Denies rash. [] Neurologic: Denies headache, focal weakness or sensory changes. [] Endocrine: Denies polyuria or polydipsia. [] Lymphatic: Denies swollen glands. [] Psychiatric: Denies depression or anxiety. [] Allergies: Allergies: Allergies Coded Allergies Type Severity Reaction Last Updated Verified No Known Drug Allergies 03/05/20 No Physical Exam: PE: Constitutional: Well developed, well nourished, no acute distress, non-toxic appearance. [] HENT: Normocephalic, atraumatic, bilateral external ears normal, oropharynx moist, no oral exudates, nose normal. [] Eyes: PERRLA, EOMI, conjunctiva normal, no discharge. [] Neck: Normal range of motion, no tenderness, supple, no stridor. [] Cardiovascular:Heart rate regular rhythm, no murmur [] Lungs & Thorax: Bilateral breath sounds clear to auscultation [] Abdomen: Bowel sounds normal, soft, no tenderness, no masses, no pulsatile masses. [] Skin: Warm, dry, no erythema, no rash. [] Well-healing surgical scar on left breast without signs of dehiscence, inflammation, infection Back: No tenderness, no CVA tenderness. [] Extremities: No tenderness, no cyanosis, no clubbing, ROM intact, no edema. [] Neurologic: Alert and oriented X 3, normal motor function, normal sensory function, no focal deficits noted. [] Psychologic: Affect normal, judgement normal, mood normal. [] Current Patient Data: Labs: Laboratory Tests Test 03/27/20 05:30 03/27/20 05:40 Urine Collection Type Void Urine Color Yanira Urine Clarity Cloudy Urine pH 6.0 (<5.0-8.0) Urine Specific [place] >=1.030 (1.000-1.030) Urine Protein 100 mg/dL (NEG-TRACE) Urine Glucose (UA) Negative mg/dL (NEG) Urine Ketones (Stick) Trace mg/dL (NEG) Urine Blood Negative (NEG) Urine Nitrite Negative (NEG) Urine Bilirubin Small (NEG) Urine Urobilinogen Dipstick 1.0 mg/dL (0.2 mg/dL) Urine Leukocyte Esterase Small (NEG) Urine RBC Occ /HPF (0-2) Urine WBC 5-10 /HPF (0-4) Urine Squamous Epithelial Cells Many /LPF Urine Bacteria Moderate /HPF (0-FEW) Urine Mucus Mod /LPF White Blood Count 2.1 x10^3/uL (4.0-11.0) L Red Blood Count 4.52 x10^6/uL (3.50-5.40) Hemoglobin 14.2 g/dL (12.0-15.5) Hematocrit 40.3 % (36.0-47.0) Mean Corpuscular Volume 89 fL (79-100) Mean Corpuscular Hemoglobin 32 pg (25-35) Mean Corpuscular Hemoglobin Concent 35 g/dL (31-37) Red Cell Distribution Width 12.8 % (11.5-14.5) Platelet Count 181 x10^3/uL (140-400) Neutrophils (%) (Auto) 79 % (31-73) H Lymphocytes (%) (Auto) 13 % (24-48) L Monocytes (%) (Auto) 7 % (0-9) Eosinophils (%) (Auto) 0 % (0-3) Basophils (%) (Auto) 1 % (0-3) Neutrophils # (Auto) 1.6 x10^3/uL (1.8-7.7) L Lymphocytes # (Auto) 0.3 x10^3/uL (1.0-4.8) L Monocytes # (Auto) 0.1 x10^3/uL (0.0-1.1) Eosinophils # (Auto) 0.0 x10^3/uL (0.0-0.7) Basophils # (Auto) 0.0 x10^3/uL (0.0-0.2) Sodium Level 139 mmol/L (136-145) Potassium Level 3.7 mmol/L (3.5-5.1) Chloride Level 102 mmol/L (98-107) Carbon Dioxide Level 26 mmol/L (21-32) Anion Gap 11 (6-14) Blood Urea Nitrogen 12 mg/dL (7-20) Creatinine 0.8 mg/dL (0.6-1.0) Estimated GFR (Cockcroft-Gault) 71.8 BUN/Creatinine Ratio 15 (6-20) Glucose Level 109 mg/dL (70-99) H Lactic Acid Level 1.6 mmol/L (0.4-2.0) Calcium Level 8.9 mg/dL (8.5-10.1) Total Bilirubin 1.1 mg/dL (0.2-1.0) H Aspartate Amino Transferase (AST) 197 U/L (15-37) H Alanine Aminotransferase (ALT) 240 U/L (14-59) H Alkaline Phosphatase 200 U/L (46-116) H Creatine Kinase 196 U/L (26-192) H Total Protein 7.6 g/dL (6.4-8.2) Albumin 3.8 g/dL (3.4-5.0) Albumin/Globulin Ratio 1.0 (1.0-1.7) Lipase 117 U/L (73-393) Laboratory Tests 03/27/20 05:40 Laboratory Tests 03/27/20 05:40 Vital Signs: Vital Signs Date Time Temp Pulse Resp B/P (MAP) Pulse Ox O2 Delivery O2 Flow Rate FiO2 03/27/20 05:40 98.0 81 20 133/74 (93) 97 Room Air 98.0 EKG: EKG: [] Heart Score: Risk Factors: Risk Factors: DM, Current or recent (<one month) smoker, HTN, HLP, family history of CAD, obesity. Risk Scores: Score 0 - 3: 2.5% MACE over next 6 weeks - Discharge Home Score 4 - 6: 20.3% MACE over next 6 weeks - Admit for Clinical Observation Score 7 - 10: 72.7% MACE over next 6 weeks - Early Invasive Strategies Radiology/Procedures: Radiology/Procedures: [] Course & Med Decision Making: Course & Med Decision Making Pertinent Labs and Imaging studies reviewed. (See chart for details) Care transitioned at shift change, pending labs and possible imaging [] I have received signout on the patient's emergency department care from Dr. Rust. We discussed the history, physical exam findings, completed and pending laboratory results and imaging studies. We have also discussed the current treatment plan and expected clinical course. Please refer to further update notes for additional information regarding the patient's final diagnosis and disposition. In short patient is a 4-year-old female who presents with right flank pain. Patient's labs do show transaminitis. Hyperbilirubinemia of 1.1. Ultrasound does show cholelithiasis without signs of cholecystitis. Common bile duct does not appear dilated. On my repeat assessment patient still is uncomfortable. Given she does have identifiable cholelithiasis with reported temperature early this morning I do feel is reasonable to hospitalize her for further observation. Patient agreeable to this. Rapid Covid swab pending. Appropriate for hospitalization. Dragon Disclaimer: Dragon Disclaimer: This electronic medical record was generated, in whole or in part, using a voice recognition dictation system. Departure Departure Impression: Primary Impression: Cholelithiases Additional Impressions: Transaminitis Hyperbilirubinemia Disposition: ADMITTED INPT THIS HOSP Condition: STABLE Referrals: MELISSA PARK MD (PCP) Problem Qualifiers Primary Impression: Cholelithiases Cholelithiasis location: gallbladder Cholecystitis presence: without cholecystitis Biliary obstruction: without biliary obstruction Qualified Codes: K80.20 - Calculus of gallbladder without cholecystitis without obstruction AV RUST MD Mar 27, 2020 06:00 AWILDA HOOVER DO Mar 27, 2020 07:35
[2020-03-27 06:19] LABS: BILIRUBIN,URINE SMALL (NEG); CLARITY,URINE CLOUDY; NITRITE,URINE NEGATIVE (NEG); PROTEIN,URINE 100 mg/dL (NEG-TRACE)
[2020-03-27 06:25] LABS: CALCIUM 8.9 mg/dL (8.5-10.1); CREATININE 0.8 mg/dL (0.6-1.0); GFR 71.8; POTASSIUM 3.7 mmol/L (3.5-5.1)
[2020-03-27 06:31] LABS: ALBUMIN 3.8 g/dL (3.4-5.0); TOTAL BILIRUBIN 1.1 mg/dL (0.2-1.0); TOTAL PROTEIN 7.6 g/dL (6.4-8.2)
[2020-03-27 06:34] LABS: BACTERIA,URINE MODERATE /HPF (0-FEW); COLOR,URINE AMBER; RBC,URINE OCC /HPF (0-2)
[2020-03-27 06:56] LABS: BASO % 1 % (0-3); EOS % 0 % (0-3); HEMATOCRIT 40.3 % (36.0-47.0); HEMOGLOBIN 14.2 g/dL (12.0-15.5); LYMPH # 0.3 x10^3/uL (1.0-4.8); LYMPH % 13 % (24-48); MEAN CORPUSCULAR HEMOGLOBIN 32 pg (25-35); MEAN CORPUSCULAR HGB CONC 35 g/dL (31-37); MEAN CORPUSCULAR VOLUME 89 fL (79-100); MONO # 0.1 x10^3/uL (0.0-1.1); MONO % 7 % (0-9); NEUT # 1.6 x10^3/uL (1.8-7.7); NEUT % 79 % (31-73); PLATELET COUNT 181 x10^3/uL (140-400); RED BLOOD COUNT 4.52 x10^6/uL (3.50-5.40); RED CELL DISTRIBUTION WIDTH 12.8 % (11.5-14.5); WHITE BLOOD COUNT 2.1 x10^3/uL (4.0-11.0)
--- NOTE | 2020-03-27 07:18 | RAD ---
Limited abdomen ultrasound HISTORY: Right upper quadrant abdominal pain. Elevated liver function tests. FINDINGS: The pancreas, upper abdominal aorta and most of the lower abdominal IVC are obscured by bowel gas shadowing. The hepatic IVC and upper abdominal aorta and are normal. Gallbladder is packed with large gallstones. No inflammatory changes of the gallbladder. No biliary ductal dilation common bile duct diameter is 2 mm. Homogeneous increased liver echogenicity likely resenting steatosis. The upper segments of the liver obscured by rib shadowing. No liver mass or nodularity documented. Right renal length 11.1 cm. No right renal mass or hydronephrosis documented. Spleen and left kidney were not evaluated. IMPRESSION: 1. Cholelithiasis. No inflammatory changes of the gallbladder evident. No biliary ductal dilation. 2. Increased liver echogenicity likely representing steatosis. Electronically signed by: Lester Almanza MD (03/27/2020 7:16 AM) [id number]
[2020-03-27] MEDS ORDERED: ONDANSETRON PF 4 MG/2 ML VIAL. IV PRN (07:45)
[2020-03-27] MEDS ORDERED: MORPHINE SULFATE 2 MG/ML VIAL. IV PRN (07:45)
[2020-03-27 09:45] VITALS: BP 125/77
[2020-03-27 11:00] VITALS: BP 123/76
[2020-03-27] MEDS ORDERED: FLU VACC QS 2020-21(6MOS+)/PF 0.5 ML SYRINGE. VAX IM ONE (11:00)
--- NOTE | 2020-03-27 14:00 | PDOC2 ---
GI CONSULT Date of Service: DATE: 03/27/20 TIME: 14:00 Reason For Consult: gallstones, elevated LFTs HPI: HPI: 64 y/o female who works here at [employer] admitted through ER. Awoke w/ chills/sweats and noticed some dark urine. Had a fever of 102 at home. Also reports upper abdominal discomfort, bloating, and lower back discomfort. Previous to this had some decreased appetite x 2-3 days. Also has a headache. Rapid COVID negative. Noted w/ elevated LFTs: bili 1.1, AST 197, ALT 240, Alk Phos 200. US showed cholelithiasis (also noted on CTs in 2013 and 2017) w/ normal CBD and probable hepatic steatosis. Has occasional heartburn treated w/ Tums or omeprazole PRN. No dysphagia. No vomiting but maybe some nausea w/ decreased appetite. No diarrhea, hematochezia, or melena. Has occasional constipation treated w/ Dulcolax PRN. Stooled twice yesterday but wonders about constipation today because of bloated feeling. Past EGD and colonoscopy w/ Dr. Elli Sawyer in 2014 for GERD and CRC screening - cannot view procedure reports. She says she had an ulcer and H. pylori - describes treatment w/ antibiotics and subsequent negative breath test. Says colonoscopy was normal. Unaware of gallstones before now - no similar symptoms in the past. Denies liver and pancreas history. H/o RA on hydroxychloroquine - follows w/ rheumatology. Also takes daily ibuprofen. Recent left breast biopsy w/ Dr. George - path w/ intraductal papilloma (no a typia or malignancy), fibrocystic changes, and microcalcifications. PMH: PMH: RA, HTN, HLD, GERD, PUD, H. pylori, OA hysterectomy, left breast biopsy FH: Family History: Cancer (mother - ovarian) Social History: Smoke: No ALCOHOL: none Drugs: None ROS: GEN: +fevers, chills, sweats HEENT: Denies blurred vision, sore throat CV: Denies chest pain RESP: Denies shortness of air, cough GI: Per HPI : +dark urine ENDO: Denies weight changes NEURO: Denies confusion, dizziness MSK: +chronic arthritis pain SKIN: Denies jaundice, pruritus Vitals: Vitals: Vital Signs Date Time Temp Pulse Resp B/P (MAP) Pulse Ox O2 Delivery O2 Flow Rate FiO2 03/27/20 11:00 98.7 82 18 123/76 (92) 96 Room Air 98.7 Labs: Labs: Laboratory Tests Test 03/27/20 05:30 03/27/20 05:40 03/27/20 08:10 Urine Collection Type Void Urine Color Yanira Urine Clarity Cloudy Urine pH 6.0 (<5.0-8.0) Urine Specific [place] >=1.030 (1.000-1.030) Urine Protein 100 mg/dL (NEG-TRACE) Urine Glucose (UA) Negative mg/dL (NEG) Urine Ketones (Stick) Trace mg/dL (NEG) Urine Blood Negative (NEG) Urine Nitrite Negative (NEG) Urine Bilirubin Small (NEG) Urine Urobilinogen Dipstick 1.0 mg/dL (0.2 mg/dL) Urine Leukocyte Esterase Small (NEG) Urine RBC Occ /HPF (0-2) Urine WBC 5-10 /HPF (0-4) Urine Squamous Epithelial Cells Many /LPF Urine Bacteria Moderate /HPF (0-FEW) Urine Mucus Mod /LPF White Blood Count 2.1 x10^3/uL (4.0-11.0) Red Blood Count 4.52 x10^6/uL (3.50-5.40) Hemoglobin 14.2 g/dL (12.0-15.5) Hematocrit 40.3 % (36.0-47.0) Mean Corpuscular Volume 89 fL (79-100) Mean Corpuscular Hemoglobin 32 pg (25-35) Mean Corpuscular Hemoglobin Concent 35 g/dL (31-37) Red Cell Distribution Width 12.8 % (11.5-14.5) Platelet Count 181 x10^3/uL (140-400) Neutrophils (%) (Auto) 79 % (31-73) Lymphocytes (%) (Auto) 13 % (24-48) Monocytes (%) (Auto) 7 % (0-9) Eosinophils (%) (Auto) 0 % (0-3) Basophils (%) (Auto) 1 % (0-3) Neutrophils # (Auto) 1.6 x10^3/uL (1.8-7.7) Lymphocytes # (Auto) 0.3 x10^3/uL (1.0-4.8) Monocytes # (Auto) 0.1 x10^3/uL (0.0-1.1) Eosinophils # (Auto) 0.0 x10^3/uL (0.0-0.7) Basophils # (Auto) 0.0 x10^3/uL (0.0-0.2) Sodium Level 139 mmol/L (136-145) Potassium Level 3.7 mmol/L (3.5-5.1) Chloride Level 102 mmol/L (98-107) Carbon Dioxide Level 26 mmol/L (21-32) Anion Gap 11 (6-14) Blood Urea Nitrogen 12 mg/dL (7-20) Creatinine 0.8 mg/dL (0.6-1.0) Estimated GFR (Cockcroft-Gault) 71.8 BUN/Creatinine Ratio 15 (6-20) Glucose Level 109 mg/dL (70-99) Lactic Acid Level 1.6 mmol/L (0.4-2.0) Calcium Level 8.9 mg/dL (8.5-10.1) Total Bilirubin 1.1 mg/dL (0.2-1.0) Aspartate Amino Transf (AST/SGOT) 197 U/L (15-37) Alanine Aminotransferase (ALT/SGPT) 240 U/L (14-59) Alkaline Phosphatase 200 U/L (46-116) Creatine Kinase 196 U/L (26-192) Total Protein 7.6 g/dL (6.4-8.2) Albumin 3.8 g/dL (3.4-5.0) Albumin/Globulin Ratio 1.0 (1.0-1.7) Lipase 117 U/L (73-393) SARS-CoV-2 Antigen (Rapid) Negative (NEGATIVE) Allergies: Coded Allergies: No Known Drug Allergies (Unverified , 03/05/20) Imaging: Imaging: RUQ US FINDINGS: The pancreas, upper abdominal aorta and most of the lower abdominal IVC are obscured by bowel gas shadowing. The hepatic IVC and upper abdominal aor ta and are normal. Gallbladder is packed with large gallstones. No inflammatory changes of the gallbladder. No biliary ductal dilation common bile duct diameter is 2mm. Homogeneous increased liver echogenicity likely resenting steatosis. The upper segments of the liver obscured by rib shadowing. No liver mass or nodularity documented. Right renal length 11.1 cm. No right renal mass or hydronephrosis documented. Spleen and left kidney were not evaluated. IMPRESSION: 1. Cholelithiasis. No inflammatory changes of the gallbladder evident. No biliary ductal dilation. 2. Increased liver echogenicity likely representing steatosis. PE: GEN: NAD HEENT: Atraumatic, PERRL LUNGS: CTAB HEART: RRR ABD: quiet, S/ND, RUQ/epigastric discomfort (mild) EXTREMITY: No edema SKIN: No rashes, no jaundice NEURO/PSYCH: A & O 3 A/P: A/P: Decreased appetite, fever/chills/sweats, dark urine, upper abdominal discomfort/bloating, headache Leukopenia, elevated LFTs (new), ?UTI Cholelithiasis - normal CBD Heartburn - intermittent symptoms/treatment H/o PUD and H. pylori - reports negative breath test after treatment CRC screen - reportedly normal in 2014 Intermittent constipation - controlled w/ Dulcolax PRN Hepatic steatosis RA on Plaquenil and daily NSAID Rapid COVID negative -- Reviewed w/ [facility] - check Hepatitis serologies. Give acid-pv design and installation technician. Follow LFTs. Has been NPO. Defer IVF to primary. Surgery eval pending. Okay for PO per GI. LULI ALVAREZ Mar 27, 2020 14:00
[2020-03-27 15:00] VITALS: BP_SYST 122; BP_DIAS 16; BP_DIAS 61
[2020-03-27] MEDS: ACETAMINOPHEN 325 MG TABLET. PO PRN (16:12)
[2020-03-27] MEDS: PANTOPRAZOLE 40 MG TABLET.DR. PO SCH (16:12)
--- NOTE | 2020-03-27 16:47 | PDOC2 ---
CONSULT Date of Consult Date of Consult DATE: 03/27/20 TIME: 16:43 History of Present Illness Reason for Visit: The patient is a 64 year old female who reported to the hospital due to fever, headache, R abdominal pain, back pain, and dark urine. She denies nausea or vomiting. Past Medical History Cardiovascular: HTN, Hyperlipidemia Pulmonary: No pertinent hx CENTRAL NERVOUS SYSTEM: Other GI: GERD, Other Heme/Onc: No pertinent hx Hepatobiliary: No pertinent hx Psych: No pertinent hx Musculoskeletal: Osteoarthritis Rheumatologic: No pertinent hx Infectious disease: No pertinent hx Renal/: No pertinent hx Endocrine: Hypothyroidism Past Surgical History Past Surgical History: Tonsillectomy Family History Family History: Coronary Artery Disease, Diabetes, High Cholestrol, Other Social History No ALCOHOL: none Drugs: None Lives: with Family Current Problem List Problem List Problems Medical Problems: (1) Cholelithiases Status: Acute (2) Hyperbilirubinemia Status: Acute (3) Transaminitis Status: Acute Current Medications Current Medications Current Medications Ondansetron HCl (Zofran) 4 mg PRN Q8HRS PRN IV NAUSEA/VOMITING; Start 03/27/20 at 07:45; Stop 03/28/20 at 07:44 Morphine Sulfate (Morphine Sulfate) 2 mg PRN Q2HR PRN IV PAIN; Start 03/27/20 at 07:45; Stop 03/28/20 at 07:44 Influenza Virus Vaccine Quadrival (Fluzone Quad Syringe) 0.5 ml ONCE ONCE VAX IM ; Start 03/27/20 at 11:00; Stop 03/27/20 at 11:01; Status DC Pantoprazole Sodium (Protonix) 40 mg DAILYAC PO Last administered on 03/27/20at 16:12; Start 03/27/20 at 15:00 Acetaminophen (Tylenol) 650 mg PRN Q4HRS PRN PO MILD PAIN / TEMP > 100.3'F Last administered on 03/27/20at 16:12; Start 03/27/20 at 16:00 Fentanyl Citrate (Fentanyl 2ml Vial) 25 mcg PRN Q5MIN PRN IV MILD PAIN 1-3; Start 03/28/20 at 07:00; Stop 03/29/20 at 06:59 Fentanyl Citrate (Fentanyl 2ml Vial) 50 mcg PRN Q5MIN PRN IV MODERATE TO SEVERE PAIN; Start 03/28/20 at 07:00; Stop 03/29/20 at 06:59 Morphine Sulfate (Morphine Sulfate) 1 mg PRN Q10MIN PRN IV SEVERE PAIN 7-10; Start 03/28/20 at 07:00; Stop 03/29/20 at 06:59 Ringer's Solution 1,000 ml @ 30 mls/hr Q24H IV ; Start 03/28/20 at 07:00; Stop 03/28/20 at 18:59 Hydromorphone HCl (Dilaudid) 0.5 mg PRN Q10MIN PRN IV SEV PAIN, Second choice; Start 03/28/20 at 07:00; Stop 03/29/20 at 06:59 Prochlorperazine Edisylate (Compazine) 5 mg PACU PRN PRN IV NAUSEA, MRX1; Start 03/28/20 at 07:00; Stop 03/29/20 at 06:59 Active Scripts Active Reported [place] 5-325 Tablet (Acetaminophen/Hydrocodone Bitart) 1 Each Tablet 1 Tab PO PRN Q4-6HRS PRN Vitamin D3 (Cholecalciferol (Vitamin D3)) 1,250 Mcg Capsule 5,000 Mcg PO DAILY Hydroxychloroquine Sulfate 200 Mg Tablet 200 Mg PO BID Lisinopril-Hctz 10-12.5 Mg Tab (Lisinopril/Hydrochlorothiazide) 1 Each Tablet 1 Tab PO DAILY Fish Oil ([place]-3 Fatty Acids) 500 Mg Capsule 500 Mg PO Calcium (Calcium Carbonate) 600 Mg Tablet 600 Mg PO Aspir 81 (Aspirin) 81 Mg Tablet.dr 1 Tab PO DAILY Multi Vitamin Daily (Multivitamin) 1 Each Tablet 1 Each PO Levothyroxine Sodium 50 Mcg Tablet 1 Tab PO DAILY Pravastatin Sodium 80 Mg Tablet 1 Tab PO DAILY Combipatch 0.05-0.14 Mg Ptch (Estradiol/Norethindrone Acet) 1 Each Patch.tdsw 1 Patch TD TWICE WEEKLY Allergies Allergies: Coded Allergies: No Known Drug Allergies (Unverified , 03/05/20) ROS General: YES: Other (fever) PSYCHOLOGICAL ROS: No: Anxiety, Behavioral Disorder, Concentration difficultie, Decreased libido, Depression, Disorientation, Hallucinations, Hostility, Irritablity, Memory difficulties, Mood Swings, Obsessive thoughts, Physical abuse, Sexual abuse, Sleep disturbances, Suicidal ideation, Other Eyes: No Blurry vision, No Decreased vision, No Double vision, No Dry eyes, No Excessive tearing, No Eye Pain, No Itchy Eyes, No Loss of vision, No Photophobia, No Scotomata, No Uses contacts, No Uses glasses, No Other HEENT: No: Heacaches, Visual Changes, Hearing change, Nasal congestion, Nasal discharge, Oral lesions, Sinus pain, Sore Throat, Epistaxis, Sneezing, Snoring, Tinnitus, Vertigo, Vocal changes, Other Hematological and Lymphatic: No: Bleeding Problems, Blood Clots, Blood Transfusions, Brusing, Night Sweats, Pallor, Swollen Lymph Nodes, Other Respiratory: No: Cough, Hemoptysis, Orthopnea, Pleuritic Pain, Shortness of breath, SOB with excertion, Sputum Changes, Stridor, Tachypnea, Wheezing, Other Cardiovascular: No Chest Pain, No Palpitations, No Orthopnea, No Paroxysmal Noc. Dyspnea, No Edema, No Lt Headedness, No Other Gastrointestinal: Yes Abdominal Pain Genitourinary: No Dysuria, No Frequency, No Incontinence, No Hematuria, No Retention, No Discharge, No Urgency, No Pain, No Flank Pain, No Other, No , No , No , No , No , No , No Musculoskeletal: No Gait Disturbance, No Joint Pain, No Joint Stiffness, No Joint Swelling, No Muscle Pain, No Muscular Weakness, No Pain In:, No Swelling In:, No Other Neurological: No Behavorial Changes, No Bowel/Bladder ControlChng, No Confusion, No Dizziness, No Gait Disturbance, No Headaches, No Impaired Coord/balance, No Memory Loss, No Numbness/Tingling, No Seizures, No Speech Problems, No Tremors, No Visual Changes, No Weakness, No Other Skin: No Dry Skin, No Eczema, No Hair Changes, No Lumps, No Mole Changes, No Mottling, No Nail Changes, No Pruritus, No Rash, No Skin Lesion Changes, No Other, No Acne Physical Exam General: Alert, Oriented X3 HEENT: Atraumatic Lungs: Clear to auscultation Heart: Regular rate Abdomen: Soft (tender with palpation R side) Extremities: No clubbing, No cyanosis Skin: No rashes Neuro: Normal speech, Strength at 5/5 X4 ext Psych/Mental Status: Mental status NL Vitals VITALS Vital Signs Date Time Temp Pulse Resp B/P (MAP) Pulse Ox O2 Delivery O2 Flow Rate FiO2 03/27/20 15:00 98.4 90 16 122/61 (81) 92 Room Air 98.4 Labs Labs Laboratory Tests Test 03/27/20 05:30 03/27/20 05:40 03/27/20 08:10 Urine Collection Type Void Urine Color Yanira Urine Clarity Cloudy Urine pH 6.0 (<5.0-8.0) Urine Specific [place] >=1.030 (1.000-1.030) Urine Protein 100 mg/dL (NEG-TRACE) Urine Glucose (UA) Negative mg/dL (NEG) Urine Ketones (Stick) Trace mg/dL (NEG) Urine Blood Negative (NEG) Urine Nitrite Negative (NEG) Urine Bilirubin Small (NEG) Urine Urobilinogen Dipstick 1.0 mg/dL (0.2 mg/dL) Urine Leukocyte Esterase Small (NEG) Urine RBC Occ /HPF (0-2) Urine WBC 5-10 /HPF (0-4) Urine Squamous Epithelial Cells Many /LPF Urine Bacteria Moderate /HPF (0-FEW) Urine Mucus Mod /LPF White Blood Count 2.1 x10^3/uL (4.0-11.0) Red Blood Count 4.52 x10^6/uL (3.50-5.40) Hemoglobin 14.2 g/dL (12.0-15.5) Hematocrit 40.3 % (36.0-47.0) Mean Corpuscular Volume 89 fL (79-100) Mean Corpuscular Hemoglobin 32 pg (25-35) Mean Corpuscular Hemoglobin Concent 35 g/dL (31-37) Red Cell Distribution Width 12.8 % (11.5-14.5) Platelet Count 181 x10^3/uL (140-400) Neutrophils (%) (Auto) 79 % (31-73) Lymphocytes (%) (Auto) 13 % (24-48) Monocytes (%) (Auto) 7 % (0-9) Eosinophils (%) (Auto) 0 % (0-3) Basophils (%) (Auto) 1 % (0-3) Neutrophils # (Auto) 1.6 x10^3/uL (1.8-7.7) Lymphocytes # (Auto) 0.3 x10^3/uL (1.0-4.8) Monocytes # (Auto) 0.1 x10^3/uL (0.0-1.1) Eosinophils # (Auto) 0.0 x10^3/uL (0.0-0.7) Basophils # (Auto) 0.0 x10^3/uL (0.0-0.2) Sodium Level 139 mmol/L (136-145) Potassium Level 3.7 mmol/L (3.5-5.1) Chloride Level 102 mmol/L (98-107) Carbon Dioxide Level 26 mmol/L (21-32) Anion Gap 11 (6-14) Blood Urea Nitrogen 12 mg/dL (7-20) Creatinine 0.8 mg/dL (0.6-1.0) Estimated GFR (Cockcroft-Gault) 71.8 BUN/Creatinine Ratio 15 (6-20) Glucose Level 109 mg/dL (70-99) Lactic Acid Level 1.6 mmol/L (0.4-2.0) Calcium Level 8.9 mg/dL (8.5-10.1) Total Bilirubin 1.1 mg/dL (0.2-1.0) Aspartate Amino Transf (AST/SGOT) 197 U/L (15-37) Alanine Aminotransferase (ALT/SGPT) 240 U/L (14-59) Alkaline Phosphatase 200 U/L (46-116) Creatine Kinase 196 U/L (26-192) Total Protein 7.6 g/dL (6.4-8.2) Albumin 3.8 g/dL (3.4-5.0) Albumin/Globulin Ratio 1.0 (1.0-1.7) Lipase 117 U/L (73-393) Hepatitis A IgM Antibody Nonreactive (Nonreactive) Hepatitis B Surface Antigen Nonreactive (Nonreactive) Hepatitis B Core IgM Antibody Nonreactive (Nonreactive) Hepatitis C IgG Antibody Nonreactive (Nonreactive) SARS-CoV-2 Antigen (Rapid) Negative (NEGATIVE) Laboratory Tests Test 03/27/20 05:30 03/27/20 05:40 03/27/20 08:10 Urine Collection Type Void Urine Color Yanira Urine Clarity Cloudy Urine pH 6.0 (<5.0-8.0) Urine Specific [place] >=1.030 (1.000-1.030) Urine Protein 100 mg/dL (NEG-TRACE) Urine Glucose (UA) Negative mg/dL (NEG) Urine Ketones (Stick) Trace mg/dL (NEG) Urine Blood Negative (NEG) Urine Nitrite Negative (NEG) Urine Bilirubin Small (NEG) Urine Urobilinogen Dipstick 1.0 mg/dL (0.2 mg/dL) Urine Leukocyte Esterase Small (NEG) Urine RBC Occ /HPF (0-2) Urine WBC 5-10 /HPF (0-4) Urine Squamous Epithelial Cells Many /LPF Urine Bacteria Moderate /HPF (0-FEW) Urine Mucus Mod /LPF White Blood Count 2.1 x10^3/uL (4.0-11.0) Red Blood Count 4.52 x10^6/uL (3.50-5.40) Hemoglobin 14.2 g/dL (12.0-15.5) Hematocrit 40.3 % (36.0-47.0) Mean Corpuscular Volume 89 fL (79-100) Mean Corpuscular Hemoglobin 32 pg (25-35) Mean Corpuscular Hemoglobin Concent 35 g/dL (31-37) Red Cell Distribution Width 12.8 % (11.5-14.5) Platelet Count 181 x10^3/uL (140-400) Neutrophils (%) (Auto) 79 % (31-73) Lymphocytes (%) (Auto) 13 % (24-48) Monocytes (%) (Auto) 7 % (0-9) Eosinophils (%) (Auto) 0 % (0-3) Basophils (%) (Auto) 1 % (0-3) Neutrophils # (Auto) 1.6 x10^3/uL (1.8-7.7) Lymphocytes # (Auto) 0.3 x10^3/uL (1.0-4.8) Monocytes # (Auto) 0.1 x10^3/uL (0.0-1.1) Eosinophils # (Auto) 0.0 x10^3/uL (0.0-0.7) Basophils # (Auto) 0.0 x10^3/uL (0.0-0.2) Sodium Level 139 mmol/L (136-145) Potassium Level 3.7 mmol/L (3.5-5.1) Chloride Level 102 mmol/L (98-107) Carbon Dioxide Level 26 mmol/L (21-32) Anion Gap 11 (6-14) Blood Urea Nitrogen 12 mg/dL (7-20) Creatinine 0.8 mg/dL (0.6-1.0) Estimated GFR (Cockcroft-Gault) 71.8 BUN/Creatinine Ratio 15 (6-20) Glucose Level 109 mg/dL (70-99) Lactic Acid Level 1.6 mmol/L (0.4-2.0) Calcium Level 8.9 mg/dL (8.5-10.1) Total Bilirubin 1.1 mg/dL (0.2-1.0) Aspartate Amino Transf (AST/SGOT) 197 U/L (15-37) Alanine Aminotransferase (ALT/SGPT) 240 U/L (14-59) Alkaline Phosphatase 200 U/L (46-116) Creatine Kinase 196 U/L (26-192) Total Protein 7.6 g/dL (6.4-8.2) Albumin 3.8 g/dL (3.4-5.0) Albumin/Globulin Ratio 1.0 (1.0-1.7) Lipase 117 U/L (73-393) Hepatitis A IgM Antibody Nonreactive (Nonreactive) Hepatitis B Surface Antigen Nonreactive (Nonreactive) Hepatitis B Core IgM Antibody Nonreactive (Nonreactive) Hepatitis C IgG Antibody Nonreactive (Nonreactive) SARS-CoV-2 Antigen (Rapid) Negative (NEGATIVE) Images Images Abd sonogram: IMPRESSION: 1. Cholelithiasis. No inflammatory changes of the gallbladder evident. No biliary ductal dilation. 2. Increased liver echogenicity likely representing steatosis. Assessment/Plan Assessment/Plan 64 year old female, fever, abnormal LFTs, leukopenia, abdominal pain. Gallstones were noted on sonogram without ductal dilation or inflammatory changes. Not clear that gallstones are cause of abnormal LFTs given lack of ductal dilation. ?Hepatitis virus. GI consulted, evaluation in progress. Will discuss with GI, ?CARLOS Tolbert MD Mar 27, 2020 16:47
--- NOTE | 2020-03-27 16:54 | PDOC1 ---
History and Physical Date of Service: DOS: DATE: 03/27/20 TIME: 16:46 Chief Complaint: Chief Complain: Bloating and fever History of Present Illness: HPI: Patient is a 64-year-old female with past medical history of dyslipidemia, hypertension, hypothyroidism, rheumatoid arthritis who presents with a 2-day history of subjective fever and abdominal bloatedness. Patient states she also had some minor congestion and cough. She denies any Covid exposure. 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 She denies any abdominal pain does but does feel distention. She does also notice her urine to be darker in the past 3 days. Denies any frequency, incontinence, urgency, or dysuria. Denies any diarrhea or bloody stools. Of note, patient did have a history of H. pylori infection for which she was treated 8 years ago. She was retested with a urea breath test and was negative at that time. Past Medical/Surgical History: PMH/PSH: Past Medical History: High Cholesterol, Hypertension, Hypothyroid, rheumatoid arthritis Past Surgical History: Hysterectomy Allergies: Allergies: Coded Allergies: No Known Drug Allergies (Unverified , 03/05/20) Family History: Family History: Reviewed and none reported Social History: Social History: Smoking Status: Never Smoker Alcohol Use: None Drug Use: None Current Medications: Current Medications Current Medications Ondansetron HCl (Zofran) 4 mg PRN Q8HRS PRN IV NAUSEA/VOMITING; Start 03/27/20 at 07:45; Stop 03/28/20 at 07:44 Morphine Sulfate (Morphine Sulfate) 2 mg PRN Q2HR PRN IV PAIN; Start 03/27/20 at 07:45; Stop 03/28/20 at 07:44 Influenza Virus Vaccine Quadrival (Fluzone Quad Syringe) 0.5 ml ONCE ONCE VAX IM ; Start 03/27/20 at 11:00; Stop 03/27/20 at 11:01; Status DC Pantoprazole Sodium (Protonix) 40 mg DAILYAC PO Last administered on 03/27/20at 16:12; Start 03/27/20 at 15:00 Acetaminophen (Tylenol) 650 mg PRN Q4HRS PRN PO MILD PAIN / TEMP > 100.3'F Last administered on 03/27/20at 16:12; Start 03/27/20 at 16:00 Fentanyl Citrate (Fentanyl 2ml Vial) 25 mcg PRN Q5MIN PRN IV MILD PAIN 1-3; Start 03/28/20 at 07:00; Stop 03/29/20 at 06:59 Fentanyl Citrate (Fentanyl 2ml Vial) 50 mcg PRN Q5MIN PRN IV MODERATE TO SEVERE PAIN; Start 03/28/20 at 07:00; Stop 03/29/20 at 06:59 Morphine Sulfate (Morphine Sulfate) 1 mg PRN Q10MIN PRN IV SEVERE PAIN 7-10; Start 03/28/20 at 07:00; Stop 03/29/20 at 06:59 Ringer's Solution 1,000 ml @ 30 mls/hr Q24H IV ; Start 03/28/20 at 07:00; Stop 03/28/20 at 18:59 Hydromorphone HCl (Dilaudid) 0.5 mg PRN Q10MIN PRN IV SEV PAIN, Second choice; Start 03/28/20 at 07:00; Stop 03/29/20 at 06:59 Prochlorperazine Edisylate (Compazine) 5 mg PACU PRN PRN IV NAUSEA, MRX1; Start 03/28/20 at 07:00; Stop 03/29/20 at 06:59 Active Scripts Active Reported [place] 5-325 Tablet (Acetaminophen/Hydrocodone Bitart) 1 Each Tablet 1 Tab PO PRN Q4-6HRS PRN Vitamin D3 (Cholecalciferol (Vitamin D3)) 1,250 Mcg Capsule 5,000 Mcg PO DAILY Hydroxychloroquine Sulfate 200 Mg Tablet 200 Mg PO BID Lisinopril-Hctz 10-12.5 Mg Tab (Lisinopril/Hydrochlorothiazide) 1 Each Tablet 1 Tab PO DAILY Fish Oil ([place]-3 Fatty Acids) 500 Mg Capsule 500 Mg PO Calcium (Calcium Carbonate) 600 Mg Tablet 600 Mg PO Aspir 81 (Aspirin) 81 Mg Tablet.dr 1 Tab PO DAILY Multi Vitamin Daily (Multivitamin) 1 Each Tablet 1 Each PO Levothyroxine Sodium 50 Mcg Tablet 1 Tab PO DAILY Pravastatin Sodium 80 Mg Tablet 1 Tab PO DAILY Combipatch 0.05-0.14 Mg Ptch (Estradiol/Norethindrone Acet) 1 Each Patch.tdsw 1 Patch TD TWICE WEEKLY ROS: Review of Systems Review of System REVIEW OF SYSTEMS: GENERAL: Denies weakness SKIN: No bruising, hair changes or rashes. EYES: No blurred, double or loss of vision. NOSE AND THROAT: No history of nosebleeds, hoarseness or sore throat. HEART: No history of palpitations, chest pain or shortness of breath on exertion. LUNGS: Denies cough, hemoptysis, wheezing or shortness of breath. GASTROINTESTINAL: Denies changes in appetite, nausea, vomiting, diarrhea or constipation. GENITOURINARY: No history of frequency, urgency, hesitancy or nocturia. NEUROLOGIC: Denies history of numbness, tingling, or tremor. PSYCHIATRIC: No history of panic, anxiety or depression. ENDOCRINE: No history of heat or cold intolerance, polyuria or polydipsia. EXTREMITIES: Denies joint pain, pain on walking or stiffness. Physical Exam: Vital Signs: Vital Signs Date Time Temp Pulse Resp B/P (MAP) Pulse Ox O2 Delivery O2 Flow Rate FiO2 03/27/20 15:00 98.4 90 16 122/61 (81) 92 Room Air 98.4 Physcial Exam: GEN: No apparent distress. Alert and oriented HEENT: Normal cephalic, atraumatic, external auditory canals are patent EYES: Extraocular muscles are intact, pupil are equally round and reactive to light and accommodation MUSCULOSKELETAL: Well developed , well nourished, good range of motion ENDOCRINE: No thyromegaly was palpated LYMPHATICS: No cervical chain or axillary nodes were noted HEMATOPOIETIC: No bruising NECK: Supple, no JVD, no thyromegaly was noted LUNGS: Clear to auscultation in all lung rogers without rhonchi or wheezing HEART: RRR, S!, S2 present. Peripheral pulses intact, no obvious murmurs noted ABDOMEN: Soft, nontender. Positive bowel sounds, no organomegaly, normal bowel sounds EXTREMITIES: Without clubbing, cyanosis, or edema. Pedal pulses intact. Negative Homans sign NEUROLOGIC: Normal speech and tone. A&O x 3, moves all extremities, no obvious focal deficits PSYCHIATRIC: Normal affect, normal mood. Stable SKIN: No ulcerations or rashes, good skin turgor, no jaundice VASCULAR: Good capillary refill, neurovascular bundle appears to be intact Labs: Labs: Laboratory Tests Test 03/27/20 05:30 03/27/20 05:40 03/27/20 08:10 Urine Collection Type Void Urine Color Yanira Urine Clarity Cloudy Urine pH 6.0 (<5.0-8.0) Urine Specific [place] >=1.030 (1.000-1.030) Urine Protein 100 mg/dL (NEG-TRACE) Urine Glucose (UA) Negative mg/dL (NEG) Urine Ketones (Stick) Trace mg/dL (NEG) Urine Blood Negative (NEG) Urine Nitrite Negative (NEG) Urine Bilirubin Small (NEG) Urine Urobilinogen Dipstick 1.0 mg/dL (0.2 mg/dL) Urine Leukocyte Esterase Small (NEG) Urine RBC Occ /HPF (0-2) Urine WBC 5-10 /HPF (0-4) Urine Squamous Epithelial Cells Many /LPF Urine Bacteria Moderate /HPF (0-FEW) Urine Mucus Mod /LPF White Blood Count 2.1 x10^3/uL (4.0-11.0) Red Blood Count 4.52 x10^6/uL (3.50-5.40) Hemoglobin 14.2 g/dL (12.0-15.5) Hematocrit 40.3 % (36.0-47.0) Mean Corpuscular Volume 89 fL (79-100) Mean Corpuscular Hemoglobin 32 pg (25-35) Mean Corpuscular Hemoglobin Concent 35 g/dL (31-37) Red Cell Distribution Width 12.8 % (11.5-14.5) Platelet Count 181 x10^3/uL (140-400) Neutrophils (%) (Auto) 79 % (31-73) Lymphocytes (%) (Auto) 13 % (24-48) Monocytes (%) (Auto) 7 % (0-9) Eosinophils (%) (Auto) 0 % (0-3) Basophils (%) (Auto) 1 % (0-3) Neutrophils # (Auto) 1.6 x10^3/uL (1.8-7.7) Lymphocytes # (Auto) 0.3 x10^3/uL (1.0-4.8) Monocytes # (Auto) 0.1 x10^3/uL (0.0-1.1) Eosinophils # (Auto) 0.0 x10^3/uL (0.0-0.7) Basophils # (Auto) 0.0 x10^3/uL (0.0-0.2) Sodium Level 139 mmol/L (136-145) Potassium Level 3.7 mmol/L (3.5-5.1) Chloride Level 102 mmol/L (98-107) Carbon Dioxide Level 26 mmol/L (21-32) Anion Gap 11 (6-14) Blood Urea Nitrogen 12 mg/dL (7-20) Creatinine 0.8 mg/dL (0.6-1.0) Estimated GFR (Cockcroft-Gault) 71.8 BUN/Creatinine Ratio 15 (6-20) Glucose Level 109 mg/dL (70-99) Lactic Acid Level 1.6 mmol/L (0.4-2.0) Calcium Level 8.9 mg/dL (8.5-10.1) Total Bilirubin 1.1 mg/dL (0.2-1.0) Aspartate Amino Transf (AST/SGOT) 197 U/L (15-37) Alanine Aminotransferase (ALT/SGPT) 240 U/L (14-59) Alkaline Phosphatase 200 U/L (46-116) Creatine Kinase 196 U/L (26-192) Total Protein 7.6 g/dL (6.4-8.2) Albumin 3.8 g/dL (3.4-5.0) Albumin/Globulin Ratio 1.0 (1.0-1.7) Lipase 117 U/L (73-393) Hepatitis A IgM Antibody Nonreactive (Nonreactive) Hepatitis B Surface Antigen Nonreactive (Nonreactive) Hepatitis B Core IgM Antibody Nonreactive (Nonreactive) Hepatitis C IgG Antibody Nonreactive (Nonreactive) SARS-CoV-2 Antigen (Rapid) Negative (NEGATIVE) Laboratory Tests Test 03/27/20 05:30 03/27/20 05:40 03/27/20 08:10 Urine Collection Type Void Urine Color [place] Urine Clarity Cloudy Urine pH 6.0 (<5.0-8.0) Urine Specific [place] >=1.030 (1.000-1.030) Urine Protein 100 mg/dL (NEG-TRACE) Urine Glucose (UA) Negative mg/dL (NEG) Urine Ketones (Stick) Trace mg/dL (NEG) Urine Blood Negative (NEG) Urine Nitrite Negative (NEG) Urine Bilirubin Small (NEG) Urine Urobilinogen Dipstick 1.0 mg/dL (0.2 mg/dL) Urine Leukocyte Esterase Small (NEG) Urine RBC Occ /HPF (0-2) Urine WBC 5-10 /HPF (0-4) Urine Squamous Epithelial Cells Many /LPF Urine Bacteria Moderate /HPF (0-FEW) Urine Mucus Mod /LPF White Blood Count 2.1 x10^3/uL (4.0-11.0) Red Blood Count 4.52 x10^6/uL (3.50-5.40) Hemoglobin 14.2 g/dL (12.0-15.5) Hematocrit 40.3 % (36.0-47.0) Mean Corpuscular Volume 89 fL (79-100) Mean Corpuscular Hemoglobin 32 pg (25-35) Mean Corpuscular Hemoglobin Concent 35 g/dL (31-37) Red Cell Distribution Width 12.8 % (11.5-14.5) Platelet Count 181 x10^3/uL (140-400) Neutrophils (%) (Auto) 79 % (31-73) Lymphocytes (%) (Auto) 13 % (24-48) Monocytes (%) (Auto) 7 % (0-9) Eosinophils (%) (Auto) 0 % (0-3) Basophils (%) (Auto) 1 % (0-3) Neutrophils # (Auto) 1.6 x10^3/uL (1.8-7.7) Lymphocytes # (Auto) 0.3 x10^3/uL (1.0-4.8) Monocytes # (Auto) 0.1 x10^3/uL (0.0-1.1) Eosinophils # (Auto) 0.0 x10^3/uL (0.0-0.7) Basophils # (Auto) 0.0 x10^3/uL (0.0-0.2) Sodium Level 139 mmol/L (136-145) Potassium Level 3.7 mmol/L (3.5-5.1) Chloride Level 102 mmol/L (98-107) Carbon Dioxide Level 26 mmol/L (21-32) Anion Gap 11 (6-14) Blood Urea Nitrogen 12 mg/dL (7-20) Creatinine 0.8 mg/dL (0.6-1.0) Estimated GFR (Cockcroft-Gault) 71.8 BUN/Creatinine Ratio 15 (6-20) Glucose Level 109 mg/dL (70-99) Lactic Acid Level 1.6 mmol/L (0.4-2.0) Calcium Level 8.9 mg/dL (8.5-10.1) Total Bilirubin 1.1 mg/dL (0.2-1.0) Aspartate Amino Transf (AST/SGOT) 197 U/L (15-37) Alanine Aminotransferase (ALT/SGPT) 240 U/L (14-59) Alkaline Phosphatase 200 U/L (46-116) Creatine Kinase 196 U/L (26-192) Total Protein 7.6 g/dL (6.4-8.2) Albumin 3.8 g/dL (3.4-5.0) Albumin/Globulin Ratio 1.0 (1.0-1.7) Lipase 117 U/L (73-393) Hepatitis A IgM Antibody Nonreactive (Nonreactive) Hepatitis B Surface Antigen Nonreactive (Nonreactive) Hepatitis B Core IgM Antibody Nonreactive (Nonreactive) Hepatitis C IgG Antibody Nonreactive (Nonreactive) SARS-CoV-2 Antigen (Rapid) Negative (NEGATIVE) Images: Images ABD US IMPRESSION: 1. Cholelithiasis. No inflammatory changes of the gallbladder evident. No biliary ductal dilation. 2. Increased liver echogenicity likely representing steatosis. Assessment/Plan Assessment/Plan Acute abdominal pain due to symptomatic cholelithiasis Transaminitis Admit to medicine for further management Pending surgical evaluation for cholelithiasis Pending GI evaluation for elevated liver enzymes Continue IV fluids while n.p.o. We will hold off on antibiotics at this time unless patient has elevated white count or fevers. Her abdominal exam is benign at this time. Pending H. pylori antigen study Pending hepatitis panel Lovenox for DVT prophylaxis Protonix GI prophylaxis ADA diet Full code Discussed with RN and SW Disposition pending evaluation and treatment as above Surrogate decision maker is the Justifications for Admission Other Justification ALLISON GALLARDO MD Mar 27, 2020 16:54
[2020-03-27] MEDS ORDERED: POTASSIUM CHLORIDE 10MEQ 100 ML IV SCH (17:15)
[2020-03-27] MEDS ORDERED: ONDANSETRON PF 4 MG/2 ML VIAL. IVP PRN (17:15)
[2020-03-27] MEDS ORDERED: POTASSIUM CHLORIDE 20 MEQ TABLET.ER. PO PRN (17:15)
[2020-03-27] MEDS ORDERED: DEXTROSE 50% 25 GM / 50ML DISP.SYRIN. IV PRN (17:15)
[2020-03-27] MEDS ORDERED: MAGNESIUM SULFATE 2GM 50 ML IV SCH (17:15)
[2020-03-27] MEDS ORDERED: POTASSIUM CHLORIDE 10MEQ 100 ML IV PRN (17:15)
[2020-03-27] MEDS ORDERED: ELECTROLYTE (NON-ICU) PROTOCOL. MC PRN (17:15)
[2020-03-27] MEDS ORDERED: DOCUSATE SODIUM 100 MG CAPSULE. PO PRN (17:15)
[2020-03-27] MEDS ORDERED: SENNOSIDES 8.6 MG TABLET PO PRN (17:15)
[2020-03-27] MEDS: IV NORMAL SALINE 1000ML BAG 1,000 ML IV SCH (17:56)
[2020-03-27] MEDS: ENOXAPARIN 40 MG/0.4 ML SYRINGE. SQ SCH (17:56)
[2020-03-27 19:00] VITALS: BP 104/64
[2020-03-27] MEDS ORDERED: MAGNESIUM OXIDE 400 MG TABLET PO SCH (21:00)
[2020-03-27] MEDS: HYDROXYCHLOROQUINE 200 MG TABLET PO SCH (21:37)
[2020-03-27 23:00] VITALS: BP 109/55
[2020-03-28 03:00] VITALS: BP 106/53
[2020-03-28] MEDS: IV NORMAL SALINE 1000ML BAG 1,000 ML IV SCH ×2 (03:25→13:05)
[2020-03-28 04:24] LABS: BASO % 1 % (0-3); EOS % 0 % (0-3); HEMATOCRIT 34.7 % (36.0-47.0); HEMOGLOBIN 12.1 g/dL (12.0-15.5); LYMPH # 0.4 x10^3/uL (1.0-4.8); LYMPH % 21 % (24-48); MEAN CORPUSCULAR HEMOGLOBIN 31 pg (25-35); MEAN CORPUSCULAR HGB CONC 35 g/dL (31-37); MEAN CORPUSCULAR VOLUME 89 fL (79-100); MONO # 0.2 x10^3/uL (0.0-1.1); MONO % 9 % (0-9); NEUT # 1.3 x10^3/uL (1.8-7.7); NEUT % 69 % (31-73); PLATELET COUNT 112 x10^3/uL (140-400)
[2020-03-28 04:28] LABS: CALCIUM 7.9 mg/dL (8.5-10.1); CREATININE 0.7 mg/dL (0.6-1.0); GFR 83.7; MAGNESIUM 2.2 mg/dL (1.8-2.4); PHOSPHORUS 2.9 mg/dL (2.6-4.7); POTASSIUM 3.5 mmol/L (3.5-5.1); WHITE BLOOD COUNT 1.9 x10^3/uL (4.0-11.0)
[2020-03-28 04:44] LABS: DIRECT BILIRUBIN 0.3 mg/dL (0.0-0.2); TOTAL BILIRUBIN 0.7 mg/dL (0.2-1.0)
[2020-03-28 07:00] VITALS: BP 107/62
[2020-03-28] MEDS ORDERED: MORPHINE SULFATE 2 MG/ML VIAL. IV PRN (07:00)
[2020-03-28] MEDS ORDERED: IV RINGERS,LACTATED 1000ML 1,000 ML IV SCH (07:00)
[2020-03-28] MEDS ORDERED: HYDROmorphone 2 MG/ML VIAL IV PRN (07:00)
[2020-03-28] MEDS ORDERED: PROCHLORPERAZINE 10 MG/2 ML VIAL. IV PRN (07:00)
[2020-03-28] MEDS ORDERED: fentaNYL PF VIAL 100 MCG/2 ML VIAL IV PRN ×2 (07:00)
[2020-03-28] MEDS: PANTOPRAZOLE 40 MG TABLET.DR. PO SCH (07:30)
[2020-03-28] MEDS: ASPIRIN ENTERIC COATED 81 MG TABLET.DR. PO SCH (08:05)
[2020-03-28] MEDS: LEVOTHYROXINE 50 MCG TABLET PO SCH (08:05)
[2020-03-28] MEDS: HYDROXYCHLOROQUINE 200 MG TABLET PO SCH ×2 (08:05→21:53)
[2020-03-28] MEDS: CHOLECALCIFEROL (VITAMIN D3) 5,000 UNIT CAPSULE PO SCH (08:06)
--- NOTE | 2020-03-28 09:16 | PDOC ---
[employer] ELECTRONIC TESTING 03/28/20 0916: SURGICAL PROGRESS NOTE DATE: 03/28/20 TIME: 09:13 Subjective feeling better wants to get surgery done and go home Vital Signs Vital Signs Date Time Temp Pulse Resp B/P (MAP) Pulse Ox O2 Delivery O2 Flow Rate FiO2 03/28/20 07:00 97.8 83 19 107/62 (77) 98 Room Air 97.8 I&O Intake and Output 03/28/20 07:00 Intake Total 2420 ml Balance 2420 ml Intake Oral 120 ml IV Total 1100 ml Other 1200 ml # Voids 2 General: Cooperative, No acute distress Abdomen: Soft, Other (minimal epigastric TTP) Labs Laboratory Tests Test 03/27/20 05:30 03/27/20 05:40 03/27/20 08:10 03/28/20 02:53 Urine Collection Type Void Urine Color Yanira Urine Clarity Cloudy Urine pH 6.0 (<5.0-8.0) Urine Specific Howard >=1.030 (1.000-1.030) Urine Protein 100 mg/dL (NEG-TRACE) Urine Glucose (UA) Negative mg/dL (NEG) Urine Ketones (Stick) Trace mg/dL (NEG) Urine Blood Negative (NEG) Urine Nitrite Negative (NEG) Urine Bilirubin Small (NEG) Urine Urobilinogen Dipstick 1.0 mg/dL (0.2 mg/dL) Urine Leukocyte Esterase Small (NEG) Urine RBC Occ /HPF (0-2) Urine WBC 5-10 /HPF (0-4) Urine Squamous Epithelial Cells Many /LPF Urine Bacteria Moderate /HPF (0-FEW) Urine Mucus Mod /LPF White Blood Count 2.1 x10^3/uL (4.0-11.0) 1.9 x10^3/uL (4.0-11.0) Red Blood Count 4.52 x10^6/uL (3.50-5.40) 3.90 x10^6/uL (3.50-5.40) Hemoglobin 14.2 g/dL (12.0-15.5) 12.1 g/dL (12.0-15.5) Hematocrit 40.3 % (36.0-47.0) 34.7 % (36.0-47.0) Mean Corpuscular Volume 89 fL (79-100) 89 fL (79-100) Mean Corpuscular Hemoglobin 32 pg (25-35) 31 pg (25-35) Mean Corpuscular Hemoglobin Concent 35 g/dL (31-37) 35 g/dL (31-37) Red Cell Distribution Width 12.8 % (11.5-14.5) 13.0 % (11.5-14.5) Platelet Count 181 x10^3/uL (140-400) 112 x10^3/uL (140-400) Neutrophils (%) (Auto) 79 % (31-73) 69 % (31-73) Lymphocytes (%) (Auto) 13 % (24-48) 21 % (24-48) Monocytes (%) (Auto) 7 % (0-9) 9 % (0-9) Eosinophils (%) (Auto) 0 % (0-3) 0 % (0-3) Basophils (%) (Auto) 1 % (0-3) 1 % (0-3) Neutrophils # (Auto) 1.6 x10^3/uL (1.8-7.7) 1.3 x10^3/uL (1.8-7.7) Lymphocytes # (Auto) 0.3 x10^3/uL (1.0-4.8) 0.4 x10^3/uL (1.0-4.8) Monocytes # (Auto) 0.1 x10^3/uL (0.0-1.1) 0.2 x10^3/uL (0.0-1.1) Eosinophils # (Auto) 0.0 x10^3/uL (0.0-0.7) 0.0 x10^3/uL (0.0-0.7) Basophils # (Auto) 0.0 x10^3/uL (0.0-0.2) 0.0 x10^3/uL (0.0-0.2) Sodium Level 139 mmol/L (136-145) 138 mmol/L (136-145) Potassium Level 3.7 mmol/L (3.5-5.1) 3.5 mmol/L (3.5-5.1) Chloride Level 102 mmol/L (98-107) 103 mmol/L (98-107) Carbon Dioxide Level 26 mmol/L (21-32) 22 mmol/L (21-32) Anion Gap 11 (6-14) 13 (6-14) Blood Urea Nitrogen 12 mg/dL (7-20) 12 mg/dL (7-20) Creatinine 0.8 mg/dL (0.6-1.0) 0.7 mg/dL (0.6-1.0) Estimated GFR (Cockcroft-Gault) 71.8 83.7 BUN/Creatinine Ratio 15 (6-20) Glucose Level 109 mg/dL (70-99) 113 mg/dL (70-99) Lactic Acid Level 1.6 mmol/L (0.4-2.0) Calcium Level 8.9 mg/dL (8.5-10.1) 7.9 mg/dL (8.5-10.1) Total Bilirubin 1.1 mg/dL (0.2-1.0) 0.7 mg/dL (0.2-1.0) Aspartate Amino Transf (AST/SGOT) 197 U/L (15-37) 157 U/L (15-37) Alanine Aminotransferase (ALT/SGPT) 240 U/L (14-59) 193 U/L (14-59) Alkaline Phosphatase 200 U/L (46-116) 240 U/L (46-116) Creatine Kinase 196 U/L (26-192) Total Protein 7.6 g/dL (6.4-8.2) 6.0 g/dL (6.4-8.2) Albumin 3.8 g/dL (3.4-5.0) 3.0 g/dL (3.4-5.0) Albumin/Globulin Ratio 1.0 (1.0-1.7) Lipase 117 U/L (73-393) Hepatitis A IgM Antibody Nonreactive (Nonreactive) Hepatitis B Surface Antigen Nonreactive (Nonreactive) Hepatitis B Core IgM Antibody Nonreactive (Nonreactive) Hepatitis C IgG Antibody Nonreactive (Nonreactive) SARS-CoV-2 Antigen (Rapid) Negative (NEGATIVE) Phosphorus Level 2.9 mg/dL (2.6-4.7) Magnesium Level 2.2 mg/dL (1.8-2.4) Direct Bilirubin 0.3 mg/dL (0.0-0.2) Laboratory Tests Test 03/28/20 02:53 White Blood Count 1.9 x10^3/uL (4.0-11.0) Red Blood Count 3.90 x10^6/uL (3.50-5.40) Hemoglobin 12.1 g/dL (12.0-15.5) Hematocrit 34.7 % (36.0-47.0) Mean Corpuscular Volume 89 fL (79-100) Mean Corpuscular Hemoglobin 31 pg (25-35) Mean Corpuscular Hemoglobin Concent 35 g/dL (31-37) Red Cell Distribution Width 13.0 % (11.5-14.5) Platelet Count 112 x10^3/uL (140-400) Neutrophils (%) (Auto) 69 % (31-73) Lymphocytes (%) (Auto) 21 % (24-48) Monocytes (%) (Auto) 9 % (0-9) Eosinophils (%) (Auto) 0 % (0-3) Basophils (%) (Auto) 1 % (0-3) Neutrophils # (Auto) 1.3 x10^3/uL (1.8-7.7) Lymphocytes # (Auto) 0.4 x10^3/uL (1.0-4.8) Monocytes # (Auto) 0.2 x10^3/uL (0.0-1.1) Eosinophils # (Auto) 0.0 x10^3/uL (0.0-0.7) Basophils # (Auto) 0.0 x10^3/uL (0.0-0.2) Sodium Level 138 mmol/L (136-145) Potassium Level 3.5 mmol/L (3.5-5.1) Chloride Level 103 mmol/L (98-107) Carbon Dioxide Level 22 mmol/L (21-32) Anion Gap 13 (6-14) Blood Urea Nitrogen 12 mg/dL (7-20) Creatinine 0.7 mg/dL (0.6-1.0) Estimated GFR (Cockcroft-Gault) 83.7 Glucose Level 113 mg/dL (70-99) Calcium Level 7.9 mg/dL (8.5-10.1) Phosphorus Level 2.9 mg/dL (2.6-4.7) Magnesium Level 2.2 mg/dL (1.8-2.4) Total Bilirubin 0.7 mg/dL (0.2-1.0) Direct Bilirubin 0.3 mg/dL (0.0-0.2) Aspartate Amino Transf (AST/SGOT) 157 U/L (15-37) Alanine Aminotransferase (ALT/SGPT) 193 U/L (14-59) Alkaline Phosphatase 240 U/L (46-116) Total Protein 6.0 g/dL (6.4-8.2) Albumin 3.0 g/dL (3.4-5.0) Problem List Problems Medical Problems: (1) Cholelithiases Status: Acute (2) Hyperbilirubinemia Status: Acute (3) Transaminitis Status: Acute Assessment/Plan wbc 1.9 bili, ast,. alt improved, rise in Alk Phos d/w Dr George, he reviewed with Dr Livingston and plan for Lap ella 03/29 Justicifation of Admission Dx: Justifications for Admission: Justification of Admission Dx: Yes Comments: fevers CARLOS GEORGE MD 03/28/20 1230: SURGICAL PROGRESS NOTE Assessment/Plan Surgery moved to 03/29 for completion of lab results TREE THAYER APRN Mar 28, 2020 09:16 CARLOS GEORGE MD Mar 28, 2020 12:30
--- NOTE | 2020-03-28 09:42 | NUR ---
SW following. Discussed with RN, pt from home, room air, NPO. Per RN, pt having a lap ella today. RN advised no SW needs at this time, SW will continue to follow.
--- NOTE | 2020-03-28 09:44 | PDOC ---
Date of Service: DATE: 03/28/20 TIME: 09:38 Subjective: Subjective: No pain today. Wants surgery today - otherwise would like to eat and go home and then come back for surgery. Reviewed sequence of events - not feeling great for a couple days w/ decreased appetite, then awoke w/ fever/sweats/chills and lower back pain and dark urine, then developed RUQ pain. Objective: Vital Signs: Vital Signs Date Time Temp Pulse Resp B/P (MAP) Pulse Ox O2 Delivery O2 Flow Rate FiO2 03/28/20 07:00 97.8 83 19 107/62 (77) 98 Room Air 97.8 Labs: Laboratory Tests Test 03/28/20 02:53 White Blood Count 1.9 x10^3/uL Red Blood Count 3.90 x10^6/uL Hemoglobin 12.1 g/dL Hematocrit 34.7 % Mean Corpuscular Volume 89 fL Mean Corpuscular Hemoglobin 31 pg Mean Corpuscular Hemoglobin Concent 35 g/dL Red Cell Distribution Width 13.0 % Platelet Count 112 x10^3/uL Neutrophils (%) (Auto) 69 % Lymphocytes (%) (Auto) 21 % Monocytes (%) (Auto) 9 % Eosinophils (%) (Auto) 0 % Basophils (%) (Auto) 1 % Neutrophils # (Auto) 1.3 x10^3/uL Lymphocytes # (Auto) 0.4 x10^3/uL Monocytes # (Auto) 0.2 x10^3/uL Eosinophils # (Auto) 0.0 x10^3/uL Basophils # (Auto) 0.0 x10^3/uL Sodium Level 138 mmol/L Potassium Level 3.5 mmol/L Chloride Level 103 mmol/L Carbon Dioxide Level 22 mmol/L Anion Gap 13 Blood Urea Nitrogen 12 mg/dL Creatinine 0.7 mg/dL Estimated GFR (Cockcroft-Gault) 83.7 Glucose Level 113 mg/dL Calcium Level 7.9 mg/dL Phosphorus Level 2.9 mg/dL Magnesium Level 2.2 mg/dL Total Bilirubin 0.7 mg/dL Direct Bilirubin 0.3 mg/dL Aspartate Amino Transf (AST/SGOT) 157 U/L Alanine Aminotransferase (ALT/SGPT) 193 U/L Alkaline Phosphatase 240 U/L Total Protein 6.0 g/dL Albumin 3.0 g/dL PE: GEN: NAD LUNGS: CTAB HEART: RRR ABD: S/ND/NT NEURO/PSYCH: A & O 3 A/P: Fever, dark urine, lower back pain, upper abdominal discomfort - resolved Leukopenia (worse), thrombocytopenia (new), elevated LFTs (fluctuating) - negative Hep panel Cholelithiasis - normal CBD Hepatic steatosis, h/o RA on Plaquenil Rapid COVID negative -- Plans for cholecystectomy - defer timing/diet to surgery - d/w nurse. Justicifation of Admission Dx: Justifications for Admission: Justification of Admission Dx: Yes LULI ALVAREZ Mar 28, 2020 09:44
--- NOTE | 2020-03-28 09:51 | PDOC ---
PROGRESS NOTES Date of Service: DATE: 03/28/20 TIME: 09:51 Chief Complaint Chief Complaint Images: Images ABD US IMPRESSION: 1. Cholelithiasis. No inflammatory changes of the gallbladder evident. No biliary ductal dilation. 2. Increased liver echogenicity likely representing steatosis. Assessment/Plan Assessment/Plan Acute abdominal pain due to symptomatic cholelithiasis Transaminitis Leukopenia, thrombocytopenia (new), elevated LFTs (fluctuating) - negative Hep panel Cholelithiasis - normal CBD Hepatic steatosis, h/o RA on Plaquenil PLAN Admit to medicine for further management Pending surgical evaluation for cholelithiasis Pending GI evaluation for elevated liver enzymes Continue IV fluids while n.p.o. We will hold off on antibiotics at this time unless patient has elevated white count or fevers. Her abdominal exam is benign at this time. Pending H. pylori antigen study Pending hepatitis panel Lovenox for DVT prophylaxis Protonix GI prophylaxis ADA diet Full code Discussed with RN and SW Disposition pending evaluation and treatment as above Surrogate decision maker is the plan for Lap ella 03/29 heme consult D/W RN Justifications for Admission Justifications for Admission Other Justification History of Present Illness History of Present Illness Chief Complaint: Chief Complain: Bloating and fever History of Present Illness: HPI: Patient is a 64-year-old female with past medical history of dyslipidemia, hypertension, hypothyroidism, rheumatoid arthritis who presents with a 2-day history of subjective fever and abdominal bloatedness. Patient states she also had some minor congestion and cough. She denies any Covid exposure. 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 She denies any abdominal pain does but does feel distention. She does also notice her urine to be darker in the past 3 days. Denies any frequency, incontinence, urgency, or dysuria. Denies any diarrhea or bloody stools. Of note, patient did have a history of H. pylori infection for which she was treated 8 years ago. She was retested with a urea breath test and was negative at that time. Past Medical/Surgical History: PMH/PSH: Past Medical History: High Cholesterol, Hypertension, Hypothyroid, rheumatoid arthritis Past Surgical History: Hysterectomy Allergies: Allergies: Coded Allergies: No Known Drug Allergies (Unverified , 03/05/20) Family History: Family History: Reviewed and none reported Social History: Social History: Smoking Status: Never Smoker Alcohol Use: None Drug Use: None Vitals Vitals Vital Signs Date Time Temp Pulse Resp B/P (MAP) Pulse Ox O2 Delivery O2 Flow Rate FiO2 03/28/20 07:00 97.8 83 19 107/62 (77) 98 Room Air 97.8 Physical Exam General: Alert, Oriented X3, Cooperative, No acute distress Heart: Regular rate Abdomen: Soft, Other (minimal epigastric TTP) Extremities: No clubbing, No cyanosis Skin: No rashes Labs LABS ORDERED: URINE CULTURE Procedure Result URINE CULTURE Final Final No Growth on 03/28/20 at 0955 Testing Performed by: [address] [id number] For Inquires, the Physician may contact the Microbiology department at [phone] Unless otherwise specified, Testing Performed by: [address] [id number] For Inquires, the Physician may contact the Microbiology department at [phone] packed with large gallstones. No inflammatory changes of the gallbladder. No biliary ductal dilation common bile duct diameter is 2 mm. Homogeneous increased liver echogenicity likely resenting steatosis. The upper segments of the liver obscured by rib shadowing. No liver mass or nodularity documented. Right renal length 11.1 cm. No right renal mass or hydronephrosis documented. Spleen and left kidney were not evaluated. IMPRESSION: 1. Cholelithiasis. No inflammatory changes of the gallbladder evident. No biliary ductal dilation. 2. Increased liver echogenicity likely representing steatosis. Electronically signed by: Prasanna Cedeno MD (03/27/2020 7:16 AM) [id number] DICTATED and SIGNED BY: PRASANNA CEDENO MD DATE: 03/27/20 0716 DPOA REVIEW 18 MIN to patient portal What Is a Power of [employer] Member? A power of contracts attorney (POA) is a legal document giving one person (the agent or [id number]) the power to act for another person (the principal). The agent can have broad legal authority or limited authority to make legal decisions about the principal's property, finances or medical care. The power of contracts attorney is frequently used in the event of a principal's illness or disability, or when the principal can't be present to sign necessary legal documents for financial transactions. A power of contracts attorney can end for a number of reasons, such as when the principal dies, the principal revokes it, a court invalidates it, the principal divorces their spouse, who happens to be the agent, or the agent can no longer carry out the outlined responsibilities. Conventional POAs lapse when the creator becomes incapacitated, but a durable POA remains in force to enable the agent to manage the creators affairs, and a springing POA comes into effect only if and when the creator of the POA becomes incapacitated. A medical or healthcare POA enables an agent to make medical decisions on behalf of an incapacitated person. [employer] Takeaways A power of contracts attorney (POA) is a legal document giving one person, the agent or [id number] the power to act for another person, the principal. The agent can have broad legal authority or limited authority to make decisions about the principal's property, finances or medical care. The power of contracts attorney is often used when a principal becomes ill or disabled, or when they can't be present to sign necessary legal documents for financial transactions. Understanding Power of [employer] Member A power of contracts attorney should be considered when planning for long-term care. There are different types of POAs that fall under either a general power of contracts attorney or limited power of contracts attorney. A general power of contracts attorney acts on behalf of the principal in any and all matters, as allowed by the state. The agent under a general POA agreement may be authorized to take care of issues such as handling bank accounts, signing checks, selling property and assets like stocks, f A limited power of contracts attorney gives the agent the power to act on behalf of the principal in specific matters or events. For example, the limited POA may explicitly state that the agent is only allowed to manage the principal's shelter accounts. A limited POA may also be limited to a specific period of time (e.g., if the principal will be out of the country for, say, two years). Most lovett of contracts attorney documents allow an agent to represent the principal in all property and financial matters as long as the principals mental state of mind is good. If a situation occurs where the principal becomes incapable of making decisions for him or herself, the POA agreement would automatically end. However, someone who wants the POA to remain in effect after the persons health deteriorates would need to sign a durable power of contracts attorney (DPOA). What is an advance directive? An advance directive is a legal document that says how you want to be cared for if you are unable to make decisions. You can include what medical treatments you would want and who you would trust to make decisions for you. An advance directive can also include other legal documents. A living will is a list of treatment preferences. It can be used to indicate whether you would want cardiopulmonary resuscitation (CPR), tube feedings, a breathing machine, or certain medicines, like antibiotics. The durable power of contracts attorney for health care document identifies the person you would want to make medical decisions for you. This person is also called a proxy. Your proxy should be familiar with your values and wishes. How do I get started? You can get advance directive documents for your state from your doctor's office or from http://www.caringinfo.org. Review the forms, and ask your doctor if you have any questions. Pick a person to be your proxy, and talk it over with that person. Laboratory Tests Test 03/28/20 02:53 White Blood Count 1.9 x10^3/uL (4.0-11.0) Red Blood Count 3.90 x10^6/uL (3.50-5.40) Hemoglobin 12.1 g/dL (12.0-15.5) Hematocrit 34.7 % (36.0-47.0) Mean Corpuscular Volume 89 fL (79-100) Mean Corpuscular Hemoglobin 31 pg (25-35) Mean Corpuscular Hemoglobin Concent 35 g/dL (31-37) Red Cell Distribution Width 13.0 % (11.5-14.5) Platelet Count 112 x10^3/uL (140-400) Neutrophils (%) (Auto) 69 % (31-73) Lymphocytes (%) (Auto) 21 % (24-48) Monocytes (%) (Auto) 9 % (0-9) Eosinophils (%) (Auto) 0 % (0-3) Basophils (%) (Auto) 1 % (0-3) Neutrophils # (Auto) 1.3 x10^3/uL (1.8-7.7) Lymphocytes # (Auto) 0.4 x10^3/uL (1.0-4.8) Monocytes # (Auto) 0.2 x10^3/uL (0.0-1.1) Eosinophils # (Auto) 0.0 x10^3/uL (0.0-0.7) Basophils # (Auto) 0.0 x10^3/uL (0.0-0.2) Sodium Level 138 mmol/L (136-145) Potassium Level 3.5 mmol/L (3.5-5.1) Chloride Level 103 mmol/L (98-107) Carbon Dioxide Level 22 mmol/L (21-32) Anion Gap 13 (6-14) Blood Urea Nitrogen 12 mg/dL (7-20) Creatinine 0.7 mg/dL (0.6-1.0) Estimated GFR (Cockcroft-Gault) 83.7 Glucose Level 113 mg/dL (70-99) Calcium Level 7.9 mg/dL (8.5-10.1) Phosphorus Level 2.9 mg/dL (2.6-4.7) Magnesium Level 2.2 mg/dL (1.8-2.4) Total Bilirubin 0.7 mg/dL (0.2-1.0) Direct Bilirubin 0.3 mg/dL (0.0-0.2) Aspartate Amino Transf (AST/SGOT) 157 U/L (15-37) Alanine Aminotransferase (ALT/SGPT) 193 U/L (14-59) Alkaline Phosphatase 240 U/L (46-116) Total Protein 6.0 g/dL (6.4-8.2) Albumin 3.0 g/dL (3.4-5.0) Assessment and Plan Assessmemt and Plan Problems Medical Problems: (1) Cholelithiases Status: Acute (2) Hyperbilirubinemia Status: Acute (3) Transaminitis Status: Acute Comment Review of Relevant I have reviewed the following items annalisa (where applicable) has been applied. Labs Laboratory Tests Test 03/27/20 05:30 03/27/20 05:40 03/27/20 08:10 03/28/20 02:53 Urine Collection Type Void Urine Color Yanira Urine Clarity Cloudy Urine pH 6.0 (<5.0-8.0) Urine Specific Olivia >=1.030 (1.000-1.030) Urine Protein 100 mg/dL (NEG-TRACE) Urine Glucose (UA) Negative mg/dL (NEG) Urine Ketones (Stick) Trace mg/dL (NEG) Urine Blood Negative (NEG) Urine Nitrite Negative (NEG) Urine Bilirubin Small (NEG) Urine Urobilinogen Dipstick 1.0 mg/dL (0.2 mg/dL) Urine Leukocyte Esterase Small (NEG) Urine RBC Occ /HPF (0-2) Urine WBC 5-10 /HPF (0-4) Urine Squamous Epithelial Cells Many /LPF Urine Bacteria Moderate /HPF (0-FEW) Urine Mucus Mod /LPF White Blood Count 2.1 x10^3/uL (4.0-11.0) 1.9 x10^3/uL (4.0-11.0) Red Blood Count 4.52 x10^6/uL (3.50-5.40) 3.90 x10^6/uL (3.50-5.40) Hemoglobin 14.2 g/dL (12.0-15.5) 12.1 g/dL (12.0-15.5) Hematocrit 40.3 % (36.0-47.0) 34.7 % (36.0-47.0) Mean Corpuscular Volume 89 fL (79-100) 89 fL (79-100) Mean Corpuscular Hemoglobin 32 pg (25-35) 31 pg (25-35) Mean Corpuscular Hemoglobin Concent 35 g/dL (31-37) 35 g/dL (31-37) Red Cell Distribution Width 12.8 % (11.5-14.5) 13.0 % (11.5-14.5) Platelet Count 181 x10^3/uL (140-400) 112 x10^3/uL (140-400) Neutrophils (%) (Auto) 79 % (31-73) 69 % (31-73) Lymphocytes (%) (Auto) 13 % (24-48) 21 % (24-48) Monocytes (%) (Auto) 7 % (0-9) 9 % (0-9) Eosinophils (%) (Auto) 0 % (0-3) 0 % (0-3) Basophils (%) (Auto) 1 % (0-3) 1 % (0-3) Neutrophils # (Auto) 1.6 x10^3/uL (1.8-7.7) 1.3 x10^3/uL (1.8-7.7) Lymphocytes # (Auto) 0.3 x10^3/uL (1.0-4.8) 0.4 x10^3/uL (1.0-4.8) Monocytes # (Auto) 0.1 x10^3/uL (0.0-1.1) 0.2 x10^3/uL (0.0-1.1) Eosinophils # (Auto) 0.0 x10^3/uL (0.0-0.7) 0.0 x10^3/uL (0.0-0.7) Basophils # (Auto) 0.0 x10^3/uL (0.0-0.2) 0.0 x10^3/uL (0.0-0.2) Sodium Level 139 mmol/L (136-145) 138 mmol/L (136-145) Potassium Level 3.7 mmol/L (3.5-5.1) 3.5 mmol/L (3.5-5.1) Chloride Level 102 mmol/L (98-107) 103 mmol/L (98-107) Carbon Dioxide Level 26 mmol/L (21-32) 22 mmol/L (21-32) Anion Gap 11 (6-14) 13 (6-14) Blood Urea Nitrogen 12 mg/dL (7-20) 12 mg/dL (7-20) Creatinine 0.8 mg/dL (0.6-1.0) 0.7 mg/dL (0.6-1.0) Estimated GFR (Cockcroft-Gault) 71.8 83.7 BUN/Creatinine Ratio 15 (6-20) Glucose Level 109 mg/dL (70-99) 113 mg/dL (70-99) Lactic Acid Level 1.6 mmol/L (0.4-2.0) Calcium Level 8.9 mg/dL (8.5-10.1) 7.9 mg/dL (8.5-10.1) Total Bilirubin 1.1 mg/dL (0.2-1.0) 0.7 mg/dL (0.2-1.0) Aspartate Amino Transf (AST/SGOT) 197 U/L (15-37) 157 U/L (15-37) Alanine Aminotransferase (ALT/SGPT) 240 U/L (14-59) 193 U/L (14-59) Alkaline Phosphatase 200 U/L (46-116) 240 U/L (46-116) Creatine Kinase 196 U/L (26-192) Total Protein 7.6 g/dL (6.4-8.2) 6.0 g/dL (6.4-8.2) Albumin 3.8 g/dL (3.4-5.0) 3.0 g/dL (3.4-5.0) Albumin/Globulin Ratio 1.0 (1.0-1.7) Lipase 117 U/L (73-393) Hepatitis A IgM Antibody Nonreactive (Nonreactive) Hepatitis B Surface Antigen Nonreactive (Nonreactive) Hepatitis B Core IgM Antibody Nonreactive (Nonreactive) Hepatitis C IgG Antibody Nonreactive (Nonreactive) SARS-CoV-2 Antigen (Rapid) Negative (NEGATIVE) Phosphorus Level 2.9 mg/dL (2.6-4.7) Magnesium Level 2.2 mg/dL (1.8-2.4) Direct Bilirubin 0.3 mg/dL (0.0-0.2) Laboratory Tests Test 03/28/20 02:53 White Blood Count 1.9 x10^3/uL (4.0-11.0) Red Blood Count 3.90 x10^6/uL (3.50-5.40) Hemoglobin 12.1 g/dL (12.0-15.5) Hematocrit 34.7 % (36.0-47.0) Mean Corpuscular Volume 89 fL (79-100) Mean Corpuscular Hemoglobin 31 pg (25-35) Mean Corpuscular Hemoglobin Concent 35 g/dL (31-37) Red Cell Distribution Width 13.0 % (11.5-14.5) Platelet Count 112 x10^3/uL (140-400) Neutrophils (%) (Auto) 69 % (31-73) Lymphocytes (%) (Auto) 21 % (24-48) Monocytes (%) (Auto) 9 % (0-9) Eosinophils (%) (Auto) 0 % (0-3) Basophils (%) (Auto) 1 % (0-3) Neutrophils # (Auto) 1.3 x10^3/uL (1.8-7.7) Lymphocytes # (Auto) 0.4 x10^3/uL (1.0-4.8) Monocytes # (Auto) 0.2 x10^3/uL (0.0-1.1) Eosinophils # (Auto) 0.0 x10^3/uL (0.0-0.7) Basophils # (Auto) 0.0 x10^3/uL (0.0-0.2) Sodium Level 138 mmol/L (136-145) Potassium Level 3.5 mmol/L (3.5-5.1) Chloride Level 103 mmol/L (98-107) Carbon Dioxide Level 22 mmol/L (21-32) Anion Gap 13 (6-14) Blood Urea Nitrogen 12 mg/dL (7-20) Creatinine 0.7 mg/dL (0.6-1.0) Estimated GFR (Cockcroft-Gault) 83.7 Glucose Level 113 mg/dL (70-99) Calcium Level 7.9 mg/dL (8.5-10.1) Phosphorus Level 2.9 mg/dL (2.6-4.7) Magnesium Level 2.2 mg/dL (1.8-2.4) Total Bilirubin 0.7 mg/dL (0.2-1.0) Direct Bilirubin 0.3 mg/dL (0.0-0.2) Aspartate Amino Transf (AST/SGOT) 157 U/L (15-37) Alanine Aminotransferase (ALT/SGPT) 193 U/L (14-59) Alkaline Phosphatase 240 U/L (46-116) Total Protein 6.0 g/dL (6.4-8.2) Albumin 3.0 g/dL (3.4-5.0) Medications Current Medications Ondansetron HCl (Zofran) 4 mg PRN Q8HRS PRN IV NAUSEA/VOMITING; Start 03/27/20 at 07:45; Stop 03/28/20 at 07:44; Status DC Morphine Sulfate (Morphine Sulfate) 2 mg PRN Q2HR PRN IV PAIN; Start 03/27/20 at 07:45; Stop 03/28/20 at 07:44; Status DC Influenza Virus Vaccine Quadrival (Fluzone Quad [id number] Syringe) 0.5 ml ONCE ONCE VAX IM ; Start 03/27/20 at 11:00; Stop 03/27/20 at 11:01; Status DC Pantoprazole Sodium (Protonix) 40 mg DAILYAC PO Last administered on 03/27/20at 16:12; Start 03/27/20 at 15:00 Acetaminophen (Tylenol) 650 mg PRN Q4HRS PRN PO MILD PAIN / TEMP > 100.3'F Last administered on 03/27/20at 16:12; Start 03/27/20 at 16:00 Fentanyl Citrate (Fentanyl 2ml Vial) 25 mcg PRN Q5MIN PRN IV MILD PAIN 1-3; Start 03/28/20 at 07:00; Stop 03/29/20 at 06:59 Fentanyl Citrate (Fentanyl 2ml Vial) 50 mcg PRN Q5MIN PRN IV MODERATE TO SEVERE PAIN; Start 03/28/20 at 07:00; Stop 03/29/20 at 06:59 Morphine Sulfate (Morphine Sulfate) 1 mg PRN Q10MIN PRN IV SEVERE PAIN 7-10; Start 03/28/20 at 07:00; Stop 03/29/20 at 06:59 Ringer's Solution 1,000 ml @ 30 mls/hr Q24H IV ; Start 03/28/20 at 07:00; Stop 03/28/20 at 18:59 Hydromorphone HCl (Dilaudid) 0.5 mg PRN Q10MIN PRN IV SEV PAIN, Second choice; Start 03/28/20 at 07:00; Stop 03/29/20 at 06:59 Prochlorperazine Edisylate (Compazine) 5 mg PACU PRN PRN IV NAUSEA, MRX1; Start 03/28/20 at 07:00; Stop 03/29/20 at 06:59 Aspirin (Ecotrin) 81 mg DAILY PO ; Start 03/28/20 at 09:00 Hydroxychloroquine Sulfate (Plaquenil) 200 mg BID PO Last administered on 03/27/20at 21:37; Start 03/27/20 at 21:00 Levothyroxine Sodium (Synthroid) 50 mcg DAILY PO ; Start 03/28/20 at 09:00 Vitamin D (Vitamin D3) 5,000 unit DAILY PO ; Start 03/28/20 at 09:00 Sennosides (Senna) 17.2 mg PRN BID PRN PO CONSTIPATION; Start 03/27/20 at 17:15 Docusate Sodium (Colace) 100 mg PRN DAILY PRN PO HARD STOOLS; Start 03/27/20 at 17:15 Ondansetron HCl (Zofran) 4 mg PRN Q6HRS PRN IVP NAUSEA/VOMITING; Start 03/27/20 at 17:15 Potassium Chloride (Klor-Con) 40 meq 1X PRN PO PER PROTOCOL; Start 03/27/20 at 17:15; Status UNV Magnesium Oxide (Magnesium Oxide) 400 mg BID PO ; Start 03/27/20 at 21:00; Stop 03/29/20 at 09:01; Status UNV Potassium Chloride/Water 100 ml @ 100 mls/hr Q1H IV ; Start 03/27/20 at 17:15; Stop 03/27/20 at 21:14; Status UNV Magnesium Sulfate 50 ml @ 25 mls/hr Q24H IV ; Start 03/27/20 at 17:15; Stop 03/29/20 at 19:14; Status UNV Potassium Chloride/Water 100 ml @ 100 mls/hr Q1H PRN IV low k; Start 03/27/20 at 17:15; Status UNV Dextrose (Dextrose 50%-Water Syringe) 12.5 gm PRN Q15MIN PRN IV SEE COMMENTS; Start 03/27/20 at 17:15 Sodium Chloride 1,000 ml @ 100 mls/hr Q10H IV Last administered on 03/28/20at 03:25; Start 03/27/20 at 17:05 Enoxaparin Sodium (Lovenox 40mg Syringe) 40 mg Q24H SQ ; Start 03/27/20 at 21:00 Morphine Sulfate (Morphine Sulfate) 2 mg PRN Q2HR PRN IV SEVERE PAIN 7-10; Start 03/27/20 at 04:00; Stop 03/28/20 at 03:59; Status DC Info (Non-Icu Electrolyte Protocol) 1 ea CONT PRN PRN MC PER PROTOCOL; Start 03/27/20 at 17:15 Active Scripts Active Reported [place] 5-325 Tablet (Acetaminophen/Hydrocodone Bitart) 1 Each Tablet 1 Tab PO PRN Q4-6HRS PRN Vitamin D3 (Cholecalciferol (Vitamin D3)) 1,250 Mcg Capsule 5,000 Mcg PO DAILY Hydroxychloroquine Sulfate 200 Mg Tablet 200 Mg PO BID Lisinopril-Hctz 10-12.5 Mg Tab (Lisinopril/Hydrochlorothiazide) 1 Each Tablet 1 Tab PO DAILY Fish Oil ([place]-3 Fatty Acids) 500 Mg Capsule 500 Mg PO Calcium (Calcium Carbonate) 600 Mg Tablet 600 Mg PO Aspir 81 (Aspirin) 81 Mg Tablet.dr 1 Tab PO DAILY Multi Vitamin Daily (Multivitamin) 1 Each Tablet 1 Each PO Levothyroxine Sodium 50 Mcg Tablet 1 Tab PO DAILY Pravastatin Sodium 80 Mg Tablet 1 Tab PO DAILY Combipatch 0.05-0.14 Mg Ptch (Estradiol/Norethindrone Acet) 1 Each Patch.tdsw 1 Patch TD TWICE WEEKLY Vitals/I & O Vital Sign - Last 24 Hours 03/27/20 03/27/20 03/27/20 03/27/20 11:00 15:00 19:00 23:00 Temp 98.7 98.4 98.6 98.3 98.7 98.4 98.6 98.3 Pulse 82 90 80 77 Resp 18 16 17 18 B/P (MAP) 123/76 (92) 122/61 (81) 104/64 (77) 109/55 (73) Pulse Ox 96 92 95 98 O2 Delivery Room Air Room Air Room Air Room Air 03/28/20 03/28/20 03:00 07:00 Temp 98.2 97.8 98.2 97.8 Pulse 87 83 Resp 18 19 B/P (MAP) 106/53 (70) 107/62 (77) Pulse Ox 94 98 O2 Delivery Room Air Room Air Intake and Output 03/27/20 03/27/20 03/28/20 15:00 23:00 07:00 Intake Total 2420 ml Balance 2420 ml Justicifation of Admission Dx: Justifications for Admission: Justification of Admission Dx: Yes HEENA RIOS MD Mar 28, 2020 09:51
[2020-03-28] MEDS: ACETAMINOPHEN 325 MG TABLET. PO PRN ×2 (10:42→21:59)
[2020-03-28 11:00] VITALS: BP 115/66
[2020-03-28 15:00] VITALS: BP 112/65
--- NOTE | 2020-03-28 15:06 | RAD ---
Portable chest x-ray without comparison for preop, leukopenia. FINDINGS: The lungs are clear. Cardiomediastinum is grossly unremarkable. No significant soft tissue or osseous abnormalities. IMPRESSION: 1. No acute cardiopulmonary abnormality. Electronically signed by: Vladimir Lopez MD (03/28/2020 3:03 PM) [id number]
--- NOTE | 2020-03-28 16:52 | PDOC2 ---
CONSULT Date of Consult Date of Consult DATE: 03/28/20 TIME: 16:34 Reason for Consult Reason for Consult: Leukopenia and thrombocytopenia Referring Physician Referring Physician: Dr. George Identification/Chief Complaint Chief Complaint Abdominal pain Source Source: Chart review, Patient History of Present Illness Reason for Visit: Amena Hartmann is a 64-year-old female with history of rheumatoid arthritis, on hydroxychloroquine who has been admitted for further evaluation and management of abdominal pain. She is an employee here at [facility] Her medical history is pertinent for hypertension, hyperlipidemia and rheumatoid arthritis. She reports feeling well until 5 days ago. She experienced flu-like symptoms with fatigue and myalgias. She also experienced a fever with temp 102 but has not had fevers since her admission to [facility]. She reports back pain andurine that was dark-reddish colored and came to the ER suspecting a kidney stone. She was evaluated with US abdomen showing cholelithiasis, hepatosteatosis but no biliary dilatation. Labs showed new neutropenia and lymphopenia and following hydration, she has developed thrombocytopenia. She denies hx of low blood counts. Labs also show abnormal LFTs and she reports no hx of such results. She does have RA and has been takeing Hydroxychloroquine for it for the past 18 months. She has been tested for COVID19 and tested negative. She does work in the [employer] services at [facility] Dr George has planned for cholecystectomy tomorrow due to concern for symptomatic cholelithiasis. Denies any frequency, incontinence, urgency, or dysuria. Denies any diarrhea or bloody stools. Of note, patient did have a history of H. pylori infection for which she was treated 8 years ago. She was retested with a urea breath test and was negative at that time. Past Medical History Cardiovascular: HTN, Hyperlipidemia Pulmonary: No pertinent hx CENTRAL NERVOUS SYSTEM: Other GI: GERD, Other Heme/Onc: No pertinent hx Hepatobiliary: No pertinent hx Psych: No pertinent hx Musculoskeletal: Osteoarthritis Rheumatologic: No pertinent hx Infectious disease: No pertinent hx Renal/: No pertinent hx Endocrine: Hypothyroidism Past Surgical History Past Surgical History: Tonsillectomy Family History Family History: Coronary Artery Disease, Diabetes, High Cholestrol, Other Social History No ALCOHOL: none Drugs: None Lives: with Family Current Problem List Problem List Problems Medical Problems: (1) Cholelithiases Status: Acute (2) Hyperbilirubinemia Status: Acute (3) Transaminitis Status: Acute Current Medications Current Medications Current Medications Ondansetron HCl (Zofran) 4 mg PRN Q8HRS PRN IV NAUSEA/VOMITING; Start 03/27/20 at 07:45; Stop 03/28/20 at 07:44; Status DC Morphine Sulfate (Morphine Sulfate) 2 mg PRN Q2HR PRN IV PAIN; Start 03/27/20 at 07:45; Stop 03/28/20 at 07:44; Status DC Influenza Virus Vaccine Quadrival (Fluzone Quad Syringe) 0.5 ml ONCE ONCE VAX IM ; Start 03/27/20 at 11:00; Stop 03/27/20 at 11:01; Status DC Pantoprazole Sodium (Protonix) 40 mg DAILYAC PO Last administered on 03/27/20at 16:12; Start 03/27/20 at 15:00 Acetaminophen (Tylenol) 650 mg PRN Q4HRS PRN PO MILD PAIN / TEMP > 100.3'F Last administered on 03/28/20at 10:42; Start 03/27/20 at 16:00 Fentanyl Citrate (Fentanyl 2ml Vial) 25 mcg PRN Q5MIN PRN IV MILD PAIN 1-3; Start 03/28/20 at 07:00; Stop 03/29/20 at 06:59 Fentanyl Citrate (Fentanyl 2ml Vial) 50 mcg PRN Q5MIN PRN IV MODERATE TO SEVERE PAIN; Start 03/28/20 at 07:00; Stop 03/29/20 at 06:59 Morphine Sulfate (Morphine Sulfate) 1 mg PRN Q10MIN PRN IV SEVERE PAIN 7-10; Start 03/28/20 at 07:00; Stop 03/29/20 at 06:59 Ringer's Solution 1,000 ml @ 30 mls/hr Q24H IV ; Start 03/28/20 at 07:00; Stop 03/28/20 at 18:59 Hydromorphone HCl (Dilaudid) 0.5 mg PRN Q10MIN PRN IV SEV PAIN, Second choice; Start 03/28/20 at 07:00; Stop 03/29/20 at 06:59 Prochlorperazine Edisylate (Compazine) 5 mg PACU PRN PRN IV NAUSEA, MRX1; Start 03/28/20 at 07:00; Stop 03/29/20 at 06:59 Aspirin (Ecotrin) 81 mg DAILY PO ; Start 03/28/20 at 09:00 Hydroxychloroquine Sulfate (Plaquenil) 200 mg BID PO Last administered on 03/27/20at 21:37; Start 03/27/20 at 21:00 Levothyroxine Sodium (Synthroid) 50 mcg DAILY PO ; Start 03/28/20 at 09:00 Vitamin D (Vitamin D3) 5,000 unit DAILY PO ; Start 03/28/20 at 09:00 Sennosides (Senna) 17.2 mg PRN BID PRN PO CONSTIPATION; Start 03/27/20 at 17:15 Docusate Sodium (Colace) 100 mg PRN DAILY PRN PO HARD STOOLS; Start 03/27/20 at 17:15 Ondansetron HCl (Zofran) 4 mg PRN Q6HRS PRN IVP NAUSEA/VOMITING; Start 03/27/20 at 17:15 Potassium Chloride (Klor-Con) 40 meq 1X PRN PO PER PROTOCOL; Start 03/27/20 at 17:15; Status UNV Magnesium Oxide (Magnesium Oxide) 400 mg BID PO ; Start 03/27/20 at 21:00; Stop 03/29/20 at 09:01; Status UNV Potassium Chloride/Water 100 ml @ 100 mls/hr Q1H IV ; Start 03/27/20 at 17:15; Stop 03/27/20 at 21:14; Status UNV Magnesium Sulfate 50 ml @ 25 mls/hr Q24H IV ; Start 03/27/20 at 17:15; Stop 03/29/20 at 19:14; Status UNV Potassium Chloride/Water 100 ml @ 100 mls/hr Q1H PRN IV low k; Start 03/27/20 at 17:15; Status UNV Dextrose (Dextrose 50%-Water Syringe) 12.5 gm PRN Q15MIN PRN IV SEE COMMENTS; Start 03/27/20 at 17:15 Sodium Chloride 1,000 ml @ 100 mls/hr Q10H IV Last administered on 03/28/20at 03:25; Start 03/27/20 at 17:05 Enoxaparin Sodium (Lovenox 40mg Syringe) 40 mg Q24H SQ ; Start 03/27/20 at 21:00 Morphine Sulfate (Morphine Sulfate) 2 mg PRN Q2HR PRN IV SEVERE PAIN 7-10; Start 03/27/20 at 04:00; Stop 03/28/20 at 03:59; Status DC Info (Non-Icu Electrolyte Protocol) 1 ea CONT PRN PRN MC PER PROTOCOL; Start 03/27/20 at 17:15 Active Scripts Active Reported Wolbach 5-325 Tablet (Acetaminophen/Hydrocodone Bitart) 1 Each Tablet 1 Tab PO PRN Q4-6HRS PRN Vitamin D3 (Cholecalciferol (Vitamin D3)) 1,250 Mcg Capsule 5,000 Mcg PO DAILY Hydroxychloroquine Sulfate 200 Mg Tablet 200 Mg PO BID Lisinopril-Hctz 10-12.5 Mg Tab (Lisinopril/Hydrochlorothiazide) 1 Each Tablet 1 Tab PO DAILY Fish Oil (Cotopaxi-3 Fatty Acids) 500 Mg Capsule 500 Mg PO Calcium (Calcium Carbonate) 600 Mg Tablet 600 Mg PO Aspir 81 (Aspirin) 81 Mg Tablet.dr 1 Tab PO DAILY Multi Vitamin Daily (Multivitamin) 1 Each Tablet 1 Each PO Levothyroxine Sodium 50 Mcg Tablet 1 Tab PO DAILY Pravastatin Sodium 80 Mg Tablet 1 Tab PO DAILY Combipatch 0.05-0.14 Mg Ptch (Estradiol/Norethindrone Acet) 1 Each Patch.tdsw 1 Patch TD TWICE WEEKLY Allergies Allergies: Coded Allergies: No Known Drug Allergies (Unverified , 03/05/20) ROS General: YES: Chills, Fatigue, Malaise; No: Night Sweats, Appetite PSYCHOLOGICAL ROS: No: Anxiety, Behavioral Disorder HEENT: No: Heacaches, Visual Changes ALLERGY AND IMMUNOLOGY: No: Hives, Nasal Congestion Hematological and Lymphatic: No: Bleeding Problems, Blood Clots ENDOCRINE: YES: Malaise/lethargy; No: Palpitations Cardiovascular: No Chest Pain, No Palpitations Gastrointestinal: Yes Nausea; No Abdominal Pain, No Diarrhea, No Constipation, No Melena, No Hematochezia Genitourinary: YES Flank Pain; No Dysuria Musculoskeletal: No Joint Pain Neurological: No Dizziness Skin: No Dry Skin Physical Exam General: Alert, Oriented X3 HEENT: Atraumatic, PERRLA Lungs: Clear to auscultation Heart: Regular rate, Normal S1, Normal S2 Abdomen: Normal bowel sounds, Soft Extremities: No clubbing Skin: No rashes Neuro: Normal speech MUSCULOSKELETAL: No swelling Vitals VITALS Vital Signs Date Time Temp Pulse Resp B/P (MAP) Pulse Ox O2 Delivery O2 Flow Rate FiO2 03/28/20 15:00 97.7 72 19 112/65 (81) 97 Room Air 97.7 Labs Labs Laboratory Tests Test 03/27/20 05:30 03/27/20 05:40 03/27/20 08:10 03/28/20 02:53 Urine Collection Type Void Urine Color Yanira Urine Clarity Cloudy Urine pH 6.0 (<5.0-8.0) Urine Specific Harold >=1.030 (1.000-1.030) Urine Protein 100 mg/dL (NEG-TRACE) Urine Glucose (UA) Negative mg/dL (NEG) Urine Ketones (Stick) Trace mg/dL (NEG) Urine Blood Negative (NEG) Urine Nitrite Negative (NEG) Urine Bilirubin Small (NEG) Urine Urobilinogen Dipstick 1.0 mg/dL (0.2 mg/dL) Urine Leukocyte Esterase Small (NEG) Urine RBC Occ /HPF (0-2) Urine WBC 5-10 /HPF (0-4) Urine Squamous Epithelial Cells Many /LPF Urine Bacteria Moderate /HPF (0-FEW) Urine Mucus Mod /LPF White Blood Count 2.1 x10^3/uL (4.0-11.0) 1.9 x10^3/uL (4.0-11.0) Red Blood Count 4.52 x10^6/uL (3.50-5.40) 3.90 x10^6/uL (3.50-5.40) Hemoglobin 14.2 g/dL (12.0-15.5) 12.1 g/dL (12.0-15.5) Hematocrit 40.3 % (36.0-47.0) 34.7 % (36.0-47.0) Mean Corpuscular Volume 89 fL (79-100) 89 fL (79-100) Mean Corpuscular Hemoglobin 32 pg (25-35) 31 pg (25-35) Mean Corpuscular Hemoglobin Concent 35 g/dL (31-37) 35 g/dL (31-37) Red Cell Distribution Width 12.8 % (11.5-14.5) 13.0 % (11.5-14.5) Platelet Count 181 x10^3/uL (140-400) 112 x10^3/uL (140-400) Neutrophils (%) (Auto) 79 % (31-73) 69 % (31-73) Lymphocytes (%) (Auto) 13 % (24-48) 21 % (24-48) Monocytes (%) (Auto) 7 % (0-9) 9 % (0-9) Eosinophils (%) (Auto) 0 % (0-3) 0 % (0-3) Basophils (%) (Auto) 1 % (0-3) 1 % (0-3) Neutrophils # (Auto) 1.6 x10^3/uL (1.8-7.7) 1.3 x10^3/uL (1.8-7.7) Lymphocytes # (Auto) 0.3 x10^3/uL (1.0-4.8) 0.4 x10^3/uL (1.0-4.8) Monocytes # (Auto) 0.1 x10^3/uL (0.0-1.1) 0.2 x10^3/uL (0.0-1.1) Eosinophils # (Auto) 0.0 x10^3/uL (0.0-0.7) 0.0 x10^3/uL (0.0-0.7) Basophils # (Auto) 0.0 x10^3/uL (0.0-0.2) 0.0 x10^3/uL (0.0-0.2) Sodium Level 139 mmol/L (136-145) 138 mmol/L (136-145) Potassium Level 3.7 mmol/L (3.5-5.1) 3.5 mmol/L (3.5-5.1) Chloride Level 102 mmol/L (98-107) 103 mmol/L (98-107) Carbon Dioxide Level 26 mmol/L (21-32) 22 mmol/L (21-32) Anion Gap 11 (6-14) 13 (6-14) Blood Urea Nitrogen 12 mg/dL (7-20) 12 mg/dL (7-20) Creatinine 0.8 mg/dL (0.6-1.0) 0.7 mg/dL (0.6-1.0) Estimated GFR (Cockcroft-Gault) 71.8 83.7 BUN/Creatinine Ratio 15 (6-20) Glucose Level 109 mg/dL (70-99) 113 mg/dL (70-99) Lactic Acid Level 1.6 mmol/L (0.4-2.0) Calcium Level 8.9 mg/dL (8.5-10.1) 7.9 mg/dL (8.5-10.1) Total Bilirubin 1.1 mg/dL (0.2-1.0) 0.7 mg/dL (0.2-1.0) Aspartate Amino Transf (AST/SGOT) 197 U/L (15-37) 157 U/L (15-37) Alanine Aminotransferase (ALT/SGPT) 240 U/L (14-59) 193 U/L (14-59) Alkaline Phosphatase 200 U/L (46-116) 240 U/L (46-116) Creatine Kinase 196 U/L (26-192) Total Protein 7.6 g/dL (6.4-8.2) 6.0 g/dL (6.4-8.2) Albumin 3.8 g/dL (3.4-5.0) 3.0 g/dL (3.4-5.0) Albumin/Globulin Ratio 1.0 (1.0-1.7) Lipase 117 U/L (73-393) Hepatitis A IgM Antibody Nonreactive (Nonreactive) Hepatitis B Surface Antigen Nonreactive (Nonreactive) Hepatitis B Core IgM Antibody Nonreactive (Nonreactive) Hepatitis C IgG Antibody Nonreactive (Nonreactive) Coronavirus (PCR) Not detected (Not Detected) SARS-CoV-2 Antigen (Rapid) Negative (NEGATIVE) Phosphorus Level 2.9 mg/dL (2.6-4.7) Magnesium Level 2.2 mg/dL (1.8-2.4) Direct Bilirubin 0.3 mg/dL (0.0-0.2) Laboratory Tests Test 03/28/20 02:53 White Blood Count 1.9 x10^3/uL (4.0-11.0) Red Blood Count 3.90 x10^6/uL (3.50-5.40) Hemoglobin 12.1 g/dL (12.0-15.5) Hematocrit 34.7 % (36.0-47.0) Mean Corpuscular Volume 89 fL (79-100) Mean Corpuscular Hemoglobin 31 pg (25-35) Mean Corpuscular Hemoglobin Concent 35 g/dL (31-37) Red Cell Distribution Width 13.0 % (11.5-14.5) Platelet Count 112 x10^3/uL (140-400) Neutrophils (%) (Auto) 69 % (31-73) Lymphocytes (%) (Auto) 21 % (24-48) Monocytes (%) (Auto) 9 % (0-9) Eosinophils (%) (Auto) 0 % (0-3) Basophils (%) (Auto) 1 % (0-3) Neutrophils # (Auto) 1.3 x10^3/uL (1.8-7.7) Lymphocytes # (Auto) 0.4 x10^3/uL (1.0-4.8) Monocytes # (Auto) 0.2 x10^3/uL (0.0-1.1) Eosinophils # (Auto) 0.0 x10^3/uL (0.0-0.7) Basophils # (Auto) 0.0 x10^3/uL (0.0-0.2) Sodium Level 138 mmol/L (136-145) Potassium Level 3.5 mmol/L (3.5-5.1) Chloride Level 103 mmol/L (98-107) Carbon Dioxide Level 22 mmol/L (21-32) Anion Gap 13 (6-14) Blood Urea Nitrogen 12 mg/dL (7-20) Creatinine 0.7 mg/dL (0.6-1.0) Estimated GFR (Cockcroft-Gault) 83.7 Glucose Level 113 mg/dL (70-99) Calcium Level 7.9 mg/dL (8.5-10.1) Phosphorus Level 2.9 mg/dL (2.6-4.7) Magnesium Level 2.2 mg/dL (1.8-2.4) Total Bilirubin 0.7 mg/dL (0.2-1.0) Direct Bilirubin 0.3 mg/dL (0.0-0.2) Aspartate Amino Transf (AST/SGOT) 157 U/L (15-37) Alanine Aminotransferase (ALT/SGPT) 193 U/L (14-59) Alkaline Phosphatase 240 U/L (46-116) Total Protein 6.0 g/dL (6.4-8.2) Albumin 3.0 g/dL (3.4-5.0) Assessment/Plan Assessment/Plan Assessment: Cholelithiasis Abdominal discomfort, secondary to cholelithiasis versus other Abnormal LFTs, secondary to passed gallstone versus viral infectious process Neutropenia Lymphopenia Thrombocytopenia Recommendations: -Unclear if LFTs are abnormal secondary to cholelithiasis given disproportionately elevated AST and ALT and only mild elevation in alkaline phosphatase and bilirubin -Given presence of fatty liver on imaging and RA of RA, would maintain suspicion for nonalcoholic fatty liver disease versus autoimmune hepatitis. Defer to GI regarding additional work-up in this regard -Suspect that neutropenia, lymphopenia and thrombocytopenia are reactive secondary to the above -Would check B12 and would add folate testing as outpatient (folate testing is not allowed by hospital lab) -Will request peripheral smear for pathology review -It is unclear if her symptoms are related to cholelithiasis but I think it is reasonable to pursue cholecystectomy at this time.Discussed with Dr George -I discussed with the patient that I would recommend continued outpatient follow-up to monitor her blood counts and consider additional evaluation if the cytopenias are persistent Thank you for the consult. Please call with any questions or concerns Mart Faria MD Medical Oncology/Hematology Ph: [phone] ECHO FARIA MD Mar 28, 2020 16:52
[2020-03-28 19:00] VITALS: BP 102/60
[2020-03-28] MEDS: ENOXAPARIN 40 MG/0.4 ML SYRINGE. SQ SCH (21:00)
[2020-03-28 22:50] VITALS: BP 103/61
[2020-03-29] VITALS (12 sets, daily range): BP systolic 96–115; BP diastolic 51–62
[2020-03-29] MEDS: IV NORMAL SALINE 1000ML BAG 1,000 ML IV SCH ×3 (00:07→17:53)
[2020-03-29 05:22] LABS: BASO % 1 % (0-3); EOS % 2 % (0-3); LYMPH # 0.4 x10^3/uL (1.0-4.8); LYMPH % 17 % (24-48); MEAN CORPUSCULAR HEMOGLOBIN 31 pg (25-35); MEAN CORPUSCULAR HGB CONC 35 g/dL (31-37); MEAN CORPUSCULAR VOLUME 89 fL (79-100); MONO # 0.2 x10^3/uL (0.0-1.1); MONO % 10 % (0-9); NEUT # 1.7 x10^3/uL (1.8-7.7); NEUT % 71 % (31-73); PLATELET COUNT 126 x10^3/uL (140-400); RED BLOOD COUNT 3.83 x10^6/uL (3.50-5.40); RED CELL DISTRIBUTION WIDTH 12.8 % (11.5-14.5); WHITE BLOOD COUNT 2.4 x10^3/uL (4.0-11.0)
[2020-03-29 05:41] LABS: ALBUMIN 2.9 g/dL (3.4-5.0); CREATININE 0.6 mg/dL (0.6-1.0); POTASSIUM 3.4 mmol/L (3.5-5.1); TOTAL BILIRUBIN 0.6 mg/dL (0.2-1.0); TOTAL PROTEIN 5.8 g/dL (6.4-8.2)
[2020-03-29] MEDS ORDERED: BUPIVACAINE MPF 0.5% 30 ML VIAL. ONE (06:53)
[2020-03-29] MEDS ORDERED: SURGICEL HEMOSTAT 4X8 EACH. ONE (06:53)
[2020-03-29] MEDS ORDERED: IOHEXOL 300 MG/ML 50 ML VIAL. ONE (06:53)
[2020-03-29] MEDS ORDERED: fentaNYL PF VIAL 250 MCG/5 ML VIAL ONE (07:20)
[2020-03-29] MEDS ORDERED: ROCURONIUM 50 MG/5 ML VIAL. ONE (07:20)
[2020-03-29] MEDS ORDERED: MIDAZOLAM HCL/PF 2 MG/2 ML VIAL. ONE (07:20)
[2020-03-29] MEDS: PANTOPRAZOLE 40 MG TABLET.DR. PO SCH (07:30)
[2020-03-29] MEDS ORDERED: ceFAZolin SODIUM IV Push 1 GM VIAL. IVP ONE (07:31)
--- NOTE | 2020-03-29 08:30 | RAD ---
EXAM: Intraoperative cholangiogram HISTORY: Cholecystectomy. COMPARISON: 03/27/2020 FINDINGS: 3 fluoroscopic images are obtained during an intraoperative galactogram. The images demonstrate contrast opacification of the downstream there are tree. There is focal narrowing of the downstream common bile duct proximal to the articular which persists on all images, possibly due to a stricture or spasm. There is also a small filling defect within the distal common bile duct which may be due to an air bubble or retained stone. There is cholelithiasis. The total fluoroscopy time is 20 seconds. IMPRESSION: 1. Intraoperative cholangiogram demonstrating a possible retained stone or air bubble within the common bile duct. 2. Focal narrowing of the distal common bile duct proximal to the ampulla which persists on multiple images, possibly due to a stricture or spasm. 3. Cholelithiasis. Electronically signed by: Arianne Owen MD (03/29/2020 8:26 AM) [id number]
[2020-03-29] MEDS ORDERED: NEOSTIGMINE METHYLSULFATE 5 MG/5 ML SYRINGE. ONE (08:50)
[2020-03-29] MEDS ORDERED: GLYCOPYRROLATE 1 MG/5 ML VIAL. ONE (08:50)
--- NOTE | 2020-03-29 08:55 | PDOC4 ---
Operative Note Operative Note Operative Note: Preoperative Diagnosis: Calculus cholecystitis Postoperative Diagnosis: Same Procedure: Laparoscopic cholecystectomy with intraoperative cholangiogram Surgeons: Ariel Eligibility Counselor: Tyrell RILEY Anesthesia: Gen. Estimated Blood Loss: 10 mL Specimen: Gallbladder to pathology Drains: None Complications: None Indications: The patient is a 64-year-old female who was admitted with abdominal pain, abnormal liver tests and gallstones. Surgical treatment was offered by means of a laparoscopic cholecystectomy. The risks of surgery were discussed which include bleeding, infection, bile duct injury, bile leak, pain, the potential for additional surgeries or procedures. The patient understands and would like to proceed. Description: The patient was taken to the operating room and laid supine on the operating table. General anesthesia was performed. The abdomen was prepped with ChloraPrep and draped in a standard surgical fashion. A small infraumbilical incision was made with a scalpel. The Veress needle was then inserted and a pneumoperitoneum was then created. A 5 mm trocar was then inserted and the laparoscope was introduced. In the upper midabdomen a 5 mm t rocar was inserted and in the right upper quadrant two 2.3 mm mini lap graspers were inserted. The gallbladder was retracted cephalad. The cystic duct was dissected free from surrounding tissues. One clip was placed on the duct near the gallbladder junction. An opening was made in the duct and a cholangiocatheter placed within and secured with a clip. Using contrast dye and fluoroscopy an intraoperative cholangiogram was performed that appeared unremarkable. The clip and catheter were then withdrawn. Three clips were placed on the cystic duct and it was divided. The cystic artery was then identified, dissected free, doubly clipped and divided as well. The gallbladder was then mobilized away from the liver with cautery. The umbilical 5 millimeter trocar was exchanged for an 11 millimeter trocar. The gallbladder was then placed in an endoscopic bag and extracted at the umbilical trocar site. The fascia there was closed with an 0 Vicryl suture. All blood and irrigation fluid was suctioned and hemostasis was good. The remaining ports were removed and the pneumoperitoneum was relieved. The skin incisions were injected with half percent Marcaine with epinephrine, and all were closed using 4-0 Monocryl suture. Steri-Strips and dressings were then applied. The patient tolerated the procedure well and was sent to the recovery room in stable condition. At the end of the case all counts were correct. CARLOS DANIELS MD Mar 29, 2020 08:55
[2020-03-29] MEDS: HYDROXYCHLOROQUINE 200 MG TABLET PO SCH ×2 (09:00→19:44)
[2020-03-29] MEDS: LEVOTHYROXINE 50 MCG TABLET PO SCH (09:00)
[2020-03-29] MEDS ORDERED: HYDROcodone/APAP 5/325MG 1 TAB TABLET PO PRN (09:00)
[2020-03-29] MEDS: CHOLECALCIFEROL (VITAMIN D3) 5,000 UNIT CAPSULE PO SCH (09:00)
[2020-03-29] MEDS: ASPIRIN ENTERIC COATED 81 MG TABLET.DR. PO SCH (09:00)
[2020-03-29] MEDS ORDERED: SEVOFLURANE 61 TO 120 MINUTES. IH ONE (09:15)
[2020-03-29] MEDS ORDERED: ONDANSETRON PF 4 MG/2 ML VIAL. ONE (09:16)
[2020-03-29] MEDS ORDERED: LIDOCAINE 2% PF 5 ML VIAL. ONE (09:16)
[2020-03-29] MEDS ORDERED: PROPOFOL 10 MG/ML (20ML) VIAL. IV ONE (09:16)
[2020-03-29] MEDS ORDERED: DEXAMETHASONE SOD PHOS 4 MG/ML VIAL ONE (09:16)
--- NOTE | 2020-03-29 09:26 | NUR ---
SW following. Discussed with RN, pt from home, room air, NPO, pt having a lap ella this morning. Per RN, pt is wanting to leave after the surgery - possible discharge pending decision from surgical team. SW will continue to follow.
[2020-03-29] MEDS ORDERED: PROCHLORPERAZINE 10 MG/2 ML VIAL. IV PRN (09:30)
[2020-03-29] MEDS ORDERED: MORPHINE SULFATE 2 MG/ML VIAL. IV PRN (09:30)
[2020-03-29] MEDS ORDERED: fentaNYL PF VIAL 100 MCG/2 ML VIAL IV PRN ×2 (09:30)
[2020-03-29] MEDS ORDERED: HYDROmorphone 2 MG/ML VIAL IV PRN (09:30)
--- NOTE | 2020-03-29 09:53 | PDOC ---
Date of Service: DATE: 03/29/20 TIME: 09:49 Objective: Vital Signs: Vital Signs Date Time Temp Pulse Resp B/P (MAP) Pulse Ox O2 Delivery O2 Flow Rate FiO2 03/29/20 09:43 98.9 72 16 107/63 94 Room Air 98.9 03/29/20 09:15 8 Labs: Laboratory Tests Test 03/29/20 03:50 White Blood Count 2.4 x10^3/uL Red Blood Count 3.83 x10^6/uL Hemoglobin 12.0 g/dL Hematocrit 34.0 % Mean Corpuscular Volume 89 fL Mean Corpuscular Hemoglobin 31 pg Mean Corpuscular Hemoglobin Concent 35 g/dL Red Cell Distribution Width 12.8 % Platelet Count 126 x10^3/uL Neutrophils (%) (Auto) 71 % Lymphocytes (%) (Auto) 17 % Monocytes (%) (Auto) 10 % Eosinophils (%) (Auto) 2 % Basophils (%) (Auto) 1 % Neutrophils # (Auto) 1.7 x10^3/uL Lymphocytes # (Auto) 0.4 x10^3/uL Monocytes # (Auto) 0.2 x10^3/uL Eosinophils # (Auto) 0.0 x10^3/uL Basophils # (Auto) 0.0 x10^3/uL Sodium Level 142 mmol/L Potassium Level 3.4 mmol/L Chloride Level 106 mmol/L Carbon Dioxide Level 24 mmol/L Anion Gap 12 Blood Urea Nitrogen 7 mg/dL Creatinine 0.6 mg/dL Estimated GFR (Cockcroft-Gault) 100.0 BUN/Creatinine Ratio 12 Glucose Level 98 mg/dL Calcium Level 8.0 mg/dL Total Bilirubin 0.6 mg/dL Aspartate Amino Transf (AST/SGOT) 226 U/L Alanine Aminotransferase (ALT/SGPT) 251 U/L Alkaline Phosphatase 269 U/L Total Protein 5.8 g/dL Albumin 2.9 g/dL Albumin/Globulin Ratio 1.0 Imaging: IOC 03/29 IMPRESSION: 1. Intraoperative cholangiogram demonstrating a possible retained stone or air bubble within the common bile duct. 2. Focal narrowing of the distal common bile duct proximal to the ampulla which persists on multiple images, possibly due to a stricture or spasm. 3. Cholelithiasis. PE: out of room A/P: S/p cholecystectomy - IOC as above Leukopenia, thrombocytopenia - better Elevated LFTs - bili normal, rest a bit worse Hepatic steatosis RA on Plaquenil COVID negative -- Will review IOC and heme/onc note w/ Dr. Livingston. Follow LFTs. Justicifation of Admission Dx: Justifications for Admission: Justification of Admission Dx: Yes LULI ALVAREZ Mar 29, 2020 09:52
[2020-03-29] MEDS ORDERED: fentaNYL PF VIAL 100 MCG/2 ML VIAL ONE (10:01)
--- NOTE | 2020-03-29 10:38 | PDOC ---
PROGRESS NOTES Date of Service: DATE: 03/29/20 TIME: 10:38 Chief Complaint Chief Complaint Images: Images ABD US IMPRESSION: 1. Cholelithiasis. No inflammatory changes of the gallbladder evident. No biliary ductal dilation. 2. Increased liver echogenicity likely representing steatosis. Assessment/Plan Assessment/Plan Acute abdominal pain due to symptomatic cholelithiasis Transaminitis Leukopenia, thrombocytopenia (new), elevated LFTs (fluctuating) - negative Hep panel // neutropenia, lymphopenia and thrombocytopenia are reactive secondary to the above Cholelithiasis - normal CBD Hepatic steatosis, h/o RA on Plaquenil PLAN Admit to medicine for further management Pending surgical evaluation for cholelithiasis Pending GI evaluation for elevated liver enzymes Continue IV fluids while n.p.o. We will hold off on antibiotics at this time unless patient has elevated white count or fevers. Her abdominal exam is benign at this time. Pending H. pylori antigen study Pending hepatitis panel Lovenox for DVT prophylaxis Protonix GI prophylaxis ADA diet Full code Discussed with RN and SW Disposition pending evaluation and treatment as above Surrogate decision maker is the plan for Lap ella 03/29 heme consult D/W RN 38 MIN PT EXAM, CHART REVIEW, > 50% OF TIME SPENT WITH EXAM, CHART REVIEW, PT CARE COORDINATION Justifications for Admission Justifications for Admission Other Justification History of Present Illness History of Present Illness Chief Complaint: Chief Complain: Bloating and fever History of Present Illness: HPI: Patient is a 64-year-old female with past medical history of dyslipidemia, hypertension, hypothyroidism, rheumatoid arthritis who presents with a 2-day history of subjective fever and abdominal bloatedness. Patient states she also had some minor congestion and cough. She denies any Covid exposure. 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 She denies any abdominal pain does but does feel distention. She does also notice her urine to be darker in the past 3 days. Denies any frequency, incontinence, urgency, or dysuria. Denies any diarrhea or bloody stools. Of note, patient did have a history of H. pylori infection for which she was treated 8 years ago. She was retested with a urea breath test and was negative at that time. Past Medical/Surgical History: PMH/PSH: Past Medical History: High Cholesterol, Hypertension, Hypothyroid, rheumatoid arthritis Past Surgical History: Hysterectomy Allergies: Allergies: Coded Allergies: No Known Drug Allergies (Unverified , 03/05/20) Family History: Family History: Reviewed and none reported Social History: Social History: Smoking Status: Never Smoker Alcohol Use: None Drug Use: None Vitals Vitals Vital Signs Date Time Temp Pulse Resp B/P (MAP) Pulse Ox O2 Delivery O2 Flow Rate FiO2 03/29/20 10:15 Room Air 03/29/20 10:14 98.4 73 20 104/55 (71) 93 98.4 03/29/20 09:15 8 Physical Exam General: Alert, Oriented X3, Cooperative, mild distress Heart: Regular rate, Normal S1, Normal S2 Lungs: Clear Abdomen: Normal bowel sounds, Soft Extremities: No clubbing, No cyanosis, No edema Skin: No rashes Labs LABS Laboratory Tests Test 03/29/20 03:50 White Blood Count 2.4 x10^3/uL (4.0-11.0) Red Blood Count 3.83 x10^6/uL (3.50-5.40) Hemoglobin 12.0 g/dL (12.0-15.5) Hematocrit 34.0 % (36.0-47.0) Mean Corpuscular Volume 89 fL (79-100) Mean Corpuscular Hemoglobin 31 pg (25-35) Mean Corpuscular Hemoglobin Concent 35 g/dL (31-37) Red Cell Distribution Width 12.8 % (11.5-14.5) Platelet Count 126 x10^3/uL (140-400) Neutrophils (%) (Auto) 71 % (31-73) Lymphocytes (%) (Auto) 17 % (24-48) Monocytes (%) (Auto) 10 % (0-9) Eosinophils (%) (Auto) 2 % (0-3) Basophils (%) (Auto) 1 % (0-3) Neutrophils # (Auto) 1.7 x10^3/uL (1.8-7.7) Lymphocytes # (Auto) 0.4 x10^3/uL (1.0-4.8) Monocytes # (Auto) 0.2 x10^3/uL (0.0-1.1) Eosinophils # (Auto) 0.0 x10^3/uL (0.0-0.7) Basophils # (Auto) 0.0 x10^3/uL (0.0-0.2) Sodium Level 142 mmol/L (136-145) Potassium Level 3.4 mmol/L (3.5-5.1) Chloride Level 106 mmol/L (98-107) Carbon Dioxide Level 24 mmol/L (21-32) Anion Gap 12 (6-14) Blood Urea Nitrogen 7 mg/dL (7-20) Creatinine 0.6 mg/dL (0.6-1.0) Estimated GFR (Cockcroft-Gault) 100.0 BUN/Creatinine Ratio 12 (6-20) Glucose Level 98 mg/dL (70-99) Calcium Level 8.0 mg/dL (8.5-10.1) Total Bilirubin 0.6 mg/dL (0.2-1.0) Aspartate Amino Transf (AST/SGOT) 226 U/L (15-37) Alanine Aminotransferase (ALT/SGPT) 251 U/L (14-59) Alkaline Phosphatase 269 U/L (46-116) Total Protein 5.8 g/dL (6.4-8.2) Albumin 2.9 g/dL (3.4-5.0) Albumin/Globulin Ratio 1.0 (1.0-1.7) Assessment and Plan Assessmemt and Plan Problems Medical Problems: (1) Cholelithiases Status: Acute (2) Hyperbilirubinemia Status: Acute (3) Transaminitis Status: Acute Comment Review of Relevant I have reviewed the following items annalisa (where applicable) has been applied. Labs Laboratory Tests Test 03/28/20 02:53 03/29/20 03:50 White Blood Count 1.9 x10^3/uL (4.0-11.0) 2.4 x10^3/uL (4.0-11.0) Red Blood Count 3.90 x10^6/uL (3.50-5.40) 3.83 x10^6/uL (3.50-5.40) Hemoglobin 12.1 g/dL (12.0-15.5) 12.0 g/dL (12.0-15.5) Hematocrit 34.7 % (36.0-47.0) 34.0 % (36.0-47.0) Mean Corpuscular Volume 89 fL (79-100) 89 fL (79-100) Mean Corpuscular Hemoglobin 31 pg (25-35) 31 pg (25-35) Mean Corpuscular Hemoglobin Concent 35 g/dL (31-37) 35 g/dL (31-37) Red Cell Distribution Width 13.0 % (11.5-14.5) 12.8 % (11.5-14.5) Platelet Count 112 x10^3/uL (140-400) 126 x10^3/uL (140-400) Neutrophils (%) (Auto) 69 % (31-73) 71 % (31-73) Lymphocytes (%) (Auto) 21 % (24-48) 17 % (24-48) Monocytes (%) (Auto) 9 % (0-9) 10 % (0-9) Eosinophils (%) (Auto) 0 % (0-3) 2 % (0-3) Basophils (%) (Auto) 1 % (0-3) 1 % (0-3) Neutrophils # (Auto) 1.3 x10^3/uL (1.8-7.7) 1.7 x10^3/uL (1.8-7.7) Lymphocytes # (Auto) 0.4 x10^3/uL (1.0-4.8) 0.4 x10^3/uL (1.0-4.8) Monocytes # (Auto) 0.2 x10^3/uL (0.0-1.1) 0.2 x10^3/uL (0.0-1.1) Eosinophils # (Auto) 0.0 x10^3/uL (0.0-0.7) 0.0 x10^3/uL (0.0-0.7) Basophils # (Auto) 0.0 x10^3/uL (0.0-0.2) 0.0 x10^3/uL (0.0-0.2) Sodium Level 138 mmol/L (136-145) 142 mmol/L (136-145) Potassium Level 3.5 mmol/L (3.5-5.1) 3.4 mmol/L (3.5-5.1) Chloride Level 103 mmol/L (98-107) 106 mmol/L (98-107) Carbon Dioxide Level 22 mmol/L (21-32) 24 mmol/L (21-32) Anion Gap 13 (6-14) 12 (6-14) Blood Urea Nitrogen 12 mg/dL (7-20) 7 mg/dL (7-20) Creatinine 0.7 mg/dL (0.6-1.0) 0.6 mg/dL (0.6-1.0) Estimated GFR (Cockcroft-Gault) 83.7 100.0 Glucose Level 113 mg/dL (70-99) 98 mg/dL (70-99) Calcium Level 7.9 mg/dL (8.5-10.1) 8.0 mg/dL (8.5-10.1) Phosphorus Level 2.9 mg/dL (2.6-4.7) Magnesium Level 2.2 mg/dL (1.8-2.4) Total Bilirubin 0.7 mg/dL (0.2-1.0) 0.6 mg/dL (0.2-1.0) Direct Bilirubin 0.3 mg/dL (0.0-0.2) Aspartate Amino Transf (AST/SGOT) 157 U/L (15-37) 226 U/L (15-37) Alanine Aminotransferase (ALT/SGPT) 193 U/L (14-59) 251 U/L (14-59) Alkaline Phosphatase 240 U/L (46-116) 269 U/L (46-116) Total Protein 6.0 g/dL (6.4-8.2) 5.8 g/dL (6.4-8.2) Albumin 3.0 g/dL (3.4-5.0) 2.9 g/dL (3.4-5.0) BUN/Creatinine Ratio 12 (6-20) Albumin/Globulin Ratio 1.0 (1.0-1.7) Laboratory Tests Test 03/29/20 03:50 White Blood Count 2.4 x10^3/uL (4.0-11.0) Red Blood Count 3.83 x10^6/uL (3.50-5.40) Hemoglobin 12.0 g/dL (12.0-15.5) Hematocrit 34.0 % (36.0-47.0) Mean Corpuscular Volume 89 fL (79-100) Mean Corpuscular Hemoglobin 31 pg (25-35) Mean Corpuscular Hemoglobin Concent 35 g/dL (31-37) Red Cell Distribution Width 12.8 % (11.5-14.5) Platelet Count 126 x10^3/uL (140-400) Neutrophils (%) (Auto) 71 % (31-73) Lymphocytes (%) (Auto) 17 % (24-48) Monocytes (%) (Auto) 10 % (0-9) Eosinophils (%) (Auto) 2 % (0-3) Basophils (%) (Auto) 1 % (0-3) Neutrophils # (Auto) 1.7 x10^3/uL (1.8-7.7) Lymphocytes # (Auto) 0.4 x10^3/uL (1.0-4.8) Monocytes # (Auto) 0.2 x10^3/uL (0.0-1.1) Eosinophils # (Auto) 0.0 x10^3/uL (0.0-0.7) Basophils # (Auto) 0.0 x10^3/uL (0.0-0.2) Sodium Level 142 mmol/L (136-145) Potassium Level 3.4 mmol/L (3.5-5.1) Chloride Level 106 mmol/L (98-107) Carbon Dioxide Level 24 mmol/L (21-32) Anion Gap 12 (6-14) Blood Urea Nitrogen 7 mg/dL (7-20) Creatinine 0.6 mg/dL (0.6-1.0) Estimated GFR (Cockcroft-Gault) 100.0 BUN/Creatinine Ratio 12 (6-20) Glucose Level 98 mg/dL (70-99) Calcium Level 8.0 mg/dL (8.5-10.1) Total Bilirubin 0.6 mg/dL (0.2-1.0) Aspartate Amino Transf (AST/SGOT) 226 U/L (15-37) Alanine Aminotransferase (ALT/SGPT) 251 U/L (14-59) Alkaline Phosphatase 269 U/L (46-116) Total Protein 5.8 g/dL (6.4-8.2) Albumin 2.9 g/dL (3.4-5.0) Albumin/Globulin Ratio 1.0 (1.0-1.7) Microbiology 11/3/20 Urine Culture - Final, Complete Medications Current Medications Ondansetron HCl (Zofran) 4 mg PRN Q8HRS PRN IV NAUSEA/VOMITING; Start 03/27/20 at 07:45; Stop 03/28/20 at 07:44; Status DC Morphine Sulfate (Morphine Sulfate) 2 mg PRN Q2HR PRN IV PAIN; Start 03/27/20 at 07:45; Stop 03/28/20 at 07:44; Status DC Influenza Virus Vaccine Quadrival (Fluzone Quad Syringe) 0.5 ml ONCE ONCE VAX IM ; Start 03/27/20 at 11:00; Stop 03/27/20 at 11:01; Status DC Pantoprazole Sodium (Protonix) 40 mg DAILYAC PO Last administered on 03/27/20at 16:12; Start 03/27/20 at 15:00 Acetaminophen (Tylenol) 650 mg PRN Q4HRS PRN PO MILD PAIN / TEMP > 100.3'F Last administered on 03/28/20at 21:59; Start 03/27/20 at 16:00 Fentanyl Citrate (Fentanyl 2ml Vial) 25 mcg PRN Q5MIN PRN IV MILD PAIN 1-3; Start 03/28/20 at 07:00; Stop 03/29/20 at 06:59; Status DC Fentanyl Citrate (Fentanyl 2ml Vial) 50 mcg PRN Q5MIN PRN IV MODERATE TO SEVERE PAIN; Start 03/28/20 at 07:00; Stop 03/29/20 at 06:59; Status DC Morphine Sulfate (Morphine Sulfate) 1 mg PRN Q10MIN PRN IV SEVERE PAIN 7-10; Start 03/28/20 at 07:00; Stop 03/29/20 at 06:59; Status DC Ringer's Solution 1,000 ml @ 30 mls/hr Q24H IV Last administered on 03/28/20at 07:00; Start 03/28/20 at 07:00; Stop 03/28/20 at 18:59; Status DC Hydromorphone HCl (Dilaudid) 0.5 mg PRN Q10MIN PRN IV SEV PAIN, Second choice; Start 03/28/20 at 07:00; Stop 03/29/20 at 06:59; Status DC Prochlorperazine Edisylate (Compazine) 5 mg PACU PRN PRN IV NAUSEA, MRX1; Start 03/28/20 at 07:00; Stop 03/29/20 at 06:59; Status DC Aspirin (Ecotrin) 81 mg DAILY PO ; Start 03/28/20 at 09:00 Hydroxychloroquine Sulfate (Plaquenil) 200 mg BID PO Last administered on 03/28/20at 21:53; Start 03/27/20 at 21:00 Levothyroxine Sodium (Synthroid) 50 mcg DAILY PO ; Start 03/28/20 at 09:00 Vitamin D (Vitamin D3) 5,000 unit DAILY PO ; Start 03/28/20 at 09:00 Sennosides (Senna) 17.2 mg PRN BID PRN PO CONSTIPATION; Start 03/27/20 at 17:15 Docusate Sodium (Colace) 100 mg PRN DAILY PRN PO HARD STOOLS; Start 03/27/20 at 17:15 Ondansetron HCl (Zofran) 4 mg PRN Q6HRS PRN IVP NAUSEA/VOMITING; Start 03/27/20 at 17:15 Potassium Chloride (Klor-Con) 40 meq 1X PRN PO PER PROTOCOL; Start 03/27/20 at 17:15; Status UNV Magnesium Oxide (Magnesium Oxide) 400 mg BID PO ; Start 03/27/20 at 21:00; Stop 03/29/20 at 09:01; Status UNV Potassium Chloride/Water 100 ml @ 100 mls/hr Q1H IV ; Start 03/27/20 at 17:15; Stop 03/27/20 at 21:14; Status UNV Magnesium Sulfate 50 ml @ 25 mls/hr Q24H IV ; Start 03/27/20 at 17:15; Stop 03/29/20 at 19:14; Status UNV Potassium Chloride/Water 100 ml @ 100 mls/hr Q1H PRN IV low k; Start 03/27/20 at 17:15; Status UNV Dextrose (Dextrose 50%-Water Syringe) 12.5 gm PRN Q15MIN PRN IV SEE COMMENTS; Start 03/27/20 at 17:15 Sodium Chloride 1,000 ml @ 100 mls/hr Q10H IV Last administered on 03/29/20at 00:07; Start 03/27/20 at 17:05 Enoxaparin Sodium (Lovenox 40mg Syringe) 40 mg Q24H SQ ; Start 03/27/20 at 21:00 Morphine Sulfate (Morphine Sulfate) 2 mg PRN Q2HR PRN IV SEVERE PAIN 7-10; Start 03/27/20 at 04:00; Stop 03/28/20 at 03:59; Status DC Info (Non-Icu Electrolyte Protocol) 1 ea CONT PRN PRN MC PER PROTOCOL; Start 03/27/20 at 17:15 Iohexol (Omnipaque 300 Mg/ml) 50 ml STK-MED ONCE .ROUTE Last administered on 03/29/20at 08:20; Start 03/29/20 at 06:53; Stop 03/29/20 at 06:53; Status DC Cellulose (Surgicel Hemostat 4x8) 1 each STK-MED ONCE .ROUTE ; Start 03/29/20 at 06:53; Stop 03/29/20 at 06:53; Status DC Bupivacaine HCl (Sensorcaine Mpf 0.5%) 30 ml STK-MED ONCE .ROUTE Last administered on 03/29/20at 08:19; Start 03/29/20 at 06:53; Stop 03/29/20 at 06:53; Status DC Rocuronium [place] (Zemuron) 50 mg STK-MED ONCE .ROUTE ; Start 03/29/20 at 07:20; Stop 03/29/20 at 07:20; Status DC Midazolam HCl (Versed) 2 mg STK-MED ONCE .ROUTE ; Start 03/29/20 at 07:20; Stop 03/29/20 at 07:20; Status DC Fentanyl Citrate (Fentanyl 5ml Vial) 250 mcg STK-MED ONCE .ROUTE ; Start 03/29/20 at 07:20; Stop 03/29/20 at 07:21; Status DC Cefazolin Sodium (Ancef) 1 gm STK-MED ONCE IVP ; Start 03/29/20 at 07:31; Stop 03/29/20 at 07:31; Status DC Cefazolin Sodium/ Dextrose 50 ml @ 100 mls/hr 1X ONCE IV Last administered on 03/29/20at 07:43; Start 03/29/20 at 07:45; Stop 03/29/20 at 08:14; Status DC Glycopyrrolate (Robinul) 1 mg STK-MED ONCE .ROUTE ; Start 03/29/20 at 08:50; Stop 03/29/20 at 08:50; Status DC Neostigmine [place] (Neostigmine Methylsulfate) 5 mg STK-MED ONCE .ROUTE ; Start 03/29/20 at 08:50; Stop 03/29/20 at 08:50; Status DC Acetaminophen/ Hydrocodone Bitart (Lortab 5/325) 1 tab PRN Q4HRS PRN PO MODERATE PAIN; Start 03/29/20 at 09:00 Acetaminophen/ Hydrocodone Bitart (Lortab 5/325) 2 tab PRN Q4HRS PRN PO SEVERE PAIN; Start 03/29/20 at 09:00 Sevoflurane (Ultane) 60 ml STK-MED ONCE IH ; Start 03/29/20 at 09:15; Stop 03/29/20 at 09:15; Status DC Propofol (Diprivan) 200 mg STK-MED ONCE IV ; Start 03/29/20 at 09:16; Stop 03/29/20 at 09:16; Status DC Lidocaine HCl (Lidocaine Pf 2% Vial) 5 ml STK-MED ONCE .ROUTE ; Start 03/29/20 at 09:16; Stop 03/29/20 at 09:16; Status DC Ondansetron HCl (Zofran) 4 mg STK-MED ONCE .ROUTE ; Start 03/29/20 at 09:16; Stop 03/29/20 at 09:16; Status DC Dexamethasone Sodium Phosphate (Decadron) 4 mg STK-MED ONCE .ROUTE ; Start 03/29/20 at 09:16; Stop 03/29/20 at 09:16; Status DC Fentanyl Citrate (Fentanyl 2ml Vial) 25 mcg PRN Q5MIN PRN IV MILD PAIN 1-3; Start 03/29/20 at 09:30; Stop 03/30/20 at 09:29 Fentanyl Citrate (Fentanyl 2ml Vial) 50 mcg PRN Q5MIN PRN IV MODERATE TO SEVERE PAIN Last administered on 03/29/20at 10:04; Start 03/29/20 at 09:30; Stop 03/30/20 at 09:29 Morphine Sulfate (Morphine Sulfate) 2 mg PRN Q10MIN PRN IV MILD PAIN 1-3; Start 03/29/20 at 09:30; Stop 03/30/20 at 09:29 Hydromorphone HCl (Dilaudid) 0.5 mg PRN Q10MIN PRN IV Moderate to severe pain; Start 03/29/20 at 09:30; Stop 03/30/20 at 09:29 Prochlorperazine Edisylate (Compazine) 5 mg PRN Q6HRS PRN IV Nausea/Vomiting, 1st Choice; Start 03/29/20 at 09:30; Stop 03/30/20 at 09:29 Fentanyl Citrate (Fentanyl 2ml Vial) 100 mcg STK-MED ONCE .ROUTE ; Start 03/29/20 at 10:01; Stop 03/29/20 at 10:01; Status DC Active Scripts Active Reported [place] 5-325 Tablet (Acetaminophen/Hydrocodone Bitart) 1 Each Tablet 1 Tab PO PRN Q4-6HRS PRN Vitamin D3 (Cholecalciferol (Vitamin D3)) 1,250 Mcg Capsule 5,000 Mcg PO DAILY Hydroxychloroquine Sulfate 200 Mg Tablet 200 Mg PO BID Lisinopril-Hctz 10-12.5 Mg Tab (Lisinopril/Hydrochlorothiazide) 1 Each Tablet 1 Tab PO DAILY Fish Oil ([place]-3 Fatty Acids) 500 Mg Capsule 500 Mg PO Calcium (Calcium Carbonate) 600 Mg Tablet 600 Mg PO Aspir 81 (Aspirin) 81 Mg Tablet.dr 1 Tab PO DAILY Multi Vitamin Daily (Multivitamin) 1 Each Tablet 1 Each PO Levothyroxine Sodium 50 Mcg Tablet 1 Tab PO DAILY Pravastatin Sodium 80 Mg Tablet 1 Tab PO DAILY Combipatch 0.05-0.14 Mg Ptch (Estradiol/Norethindrone Acet) 1 Each Patch.tdsw 1 Patch TD TWICE WEEKLY Vitals/I & O Vital Sign - Last 24 Hours 03/28/20 03/28/20 03/28/20 03/28/20 11:00 15:00 19:00 22:50 Temp 97.9 97.7 98.0 98.2 97.9 97.7 98.0 98.2 Pulse 78 72 68 66 Resp 18 19 18 20 B/P (MAP) 115/66 (82) 112/65 (81) 102/60 (74) 103/61 (75) Pulse Ox 98 97 99 98 O2 Delivery Room Air Room Air Room Air Room Air 03/29/20 03/29/20 03/29/20 03/29/20 03:00 07:17 09:03 09:03 Temp 98.4 98.4 99.2 98.4 98.4 99.2 Pulse 68 68 70 Resp 20 16 18 B/P (MAP) 112/62 (79) 122/59 122/65 Pulse Ox 98 98 98 O2 Delivery Room Air Room Air Simple Mask Room Air O2 Flow Rate 8 03/29/20 03/29/20 03/29/20 03/29/20 09:15 09:30 09:36 09:43 Temp 98.9 98.9 Pulse 74 71 72 Resp 18 16 16 B/P (MAP) 101/58 106/57 107/63 Pulse Ox 98 95 94 O2 Delivery Simple Mask Room Air Room Air Room Air O2 Flow Rate 8 03/29/20 03/29/20 03/29/20 03/29/20 10:00 10:04 10:14 10:15 Temp 98.4 98.4 Pulse 71 73 Resp 16 16 20 B/P (MAP) 108/57 104/55 (71) Pulse Ox 94 94 93 O2 Delivery Room Air Room Air Room Air Room Air Intake and Output 03/28/20 03/28/20 03/29/20 15:00 23:00 07:00 Intake Total 0 ml Balance 0 ml Justicifation of Admission Dx: Justifications for Admission: Justification of Admission Dx: Yes HEENA RIOS MD Mar 29, 2020 10:38
[2020-03-29] MEDS ORDERED: POTASSIUM CHLORIDE 20 MEQ TABLET.ER. PO ONE (13:00)
[2020-03-29] MEDS: HYDROcodone/APAP 5/325MG 1 TAB TABLET PO PRN (19:44)
[2020-03-29] MEDS: ENOXAPARIN 40 MG/0.4 ML SYRINGE. SQ SCH (21:00)
[2020-03-30 03:00] VITALS: BP 102/62
[2020-03-30 04:31] LABS: BASO % 1 % (0-3); EOS % 1 % (0-3); HEMOGLOBIN 10.8 g/dL (12.0-15.5); LYMPH # 0.7 x10^3/uL (1.0-4.8); LYMPH % 20 % (24-48); MEAN CORPUSCULAR HEMOGLOBIN 31 pg (25-35); MEAN CORPUSCULAR HGB CONC 35 g/dL (31-37); MEAN CORPUSCULAR VOLUME 90 fL (79-100); MONO # 0.3 x10^3/uL (0.0-1.1); MONO % 9 % (0-9); NEUT # 2.4 x10^3/uL (1.8-7.7); NEUT % 70 % (31-73); PLATELET COUNT 149 x10^3/uL (140-400); RED BLOOD COUNT 3.46 x10^6/uL (3.50-5.40); RED CELL DISTRIBUTION WIDTH 13.1 % (11.5-14.5); WHITE BLOOD COUNT 3.4 x10^3/uL (4.0-11.0)
[2020-03-30 04:57] LABS: ALBUMIN 2.8 g/dL (3.4-5.0); ALBUMIN/GLOBULIN RATIO 1.1 (1.0-1.7); CALCIUM 8.2 mg/dL (8.5-10.1); CREATININE 0.6 mg/dL (0.6-1.0); TOTAL BILIRUBIN 0.5 mg/dL (0.2-1.0); TOTAL PROTEIN 5.3 g/dL (6.4-8.2)
[2020-03-30] MEDS: HYDROcodone/APAP 5/325MG 1 TAB TABLET PO PRN (05:05)
[2020-03-30] MEDS: IV NORMAL SALINE 1000ML BAG 1,000 ML IV SCH (05:05)
[2020-03-30 07:31] VITALS: BP 110/60
[2020-03-30] MEDS: PANTOPRAZOLE 40 MG TABLET.DR. PO SCH (07:37)
--- NOTE | 2020-03-30 08:44 | PDOC ---
PROGRESS NOTES Date of Service: DATE: 03/30/20 TIME: 08:43 Chief Complaint Chief Complaint Images: Images ABD US IMPRESSION: 1. Cholelithiasis. No inflammatory changes of the gallbladder evident. No biliary ductal dilation. 2. Increased liver echogenicity likely representing steatosis. DISCHARGE DX POD # 1 Assessment/Plan Acute abdominal pain due to symptomatic cholelithiasis Transaminitis Leukopenia, thrombocytopenia (new), elevated LFTs (fluctuating) - negative Hep panel // neutropenia, lymphopenia and thrombocytopenia are reactive secondary to the above Cholelithiasis - normal CBD Hepatic steatosis, h/o RA on Plaquenil PLAN Admit to medicine for further management Pending surgical evaluation for cholelithiasis Pending GI evaluation for elevated liver enzymes Continue IV fluids while n.p.o. We will hold off on antibiotics at this time unless patient has elevated white count or fevers. Her abdominal exam is benign at this time. Pending H. pylori antigen study Pending hepatitis panel Lovenox for DVT prophylaxis Protonix GI prophylaxis ADA diet Full code Discussed with RN and SW Disposition pending evaluation and treatment as above Surrogate decision maker is the plan for Lap ella 03/29 heme consult DC okay per GI, follow-up to recheck LFTs/additional liver tests as outpt. D/W RN 33 MIN PT EXAM, CHART REVIEW D/C PLANNING , > 50% OF TIME SPENT WITH EXAM, CHART REVIEW, PT CARE COORDINATION Justifications for Admission Justifications for Admission Other Justification History of Present Illness History of Present Illness Chief Complaint: Chief Complain: Bloating and fever History of Present Illness: HPI: Patient is a 64-year-old female with past medical history of dyslipidemia, hypertension, hypothyroidism, rheumatoid arthritis who presents with a 2-day history of subjective fever and abdominal bloatedness. Patient states she also had some minor congestion and cough. She denies any Covid exposure. 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 She denies any abdominal pain does but does feel distention. She does also notice her urine to be darker in the past 3 days. Denies any frequency, incontinence, urgency, or dysuria. Denies any diarrhea or bloody stools. Of note, patient did have a history of H. pylori infection for which she was treated 8 years ago. She was retested with a urea breath test and was negative at that time. Past Medical/Surgical History: PMH/PSH: Past Medical History: High Cholesterol, Hypertension, Hypothyroid, rheumatoid arthritis Past Surgical History: Hysterectomy Allergies: Allergies: Coded Allergies: No Known Drug Allergies (Unverified , 03/05/20) Family History: Family History: Reviewed and none reported Social History: Social History: Smoking Status: Never Smoker Alcohol Use: None Drug Use: None Vitals Vitals Vital Signs Date Time Temp Pulse Resp B/P (MAP) Pulse Ox O2 Delivery O2 Flow Rate FiO2 03/30/20 07:31 97.9 67 17 110/60 (77) 96 Room Air 97.9 03/29/20 09:15 8 Physical Exam General: Alert, Oriented X3, Cooperative, No acute distress Heart: Regular rate, Normal S1, Normal S2 Lungs: Clear Abdomen: Normal bowel sounds, Soft Extremities: No clubbing, No cyanosis, No edema Skin: No rashes Labs LABS Laboratory Tests Test 03/29/20 13:40 03/30/20 03:45 Cytomegalovirus IgG Antibody >10.00 U/mL (0.00-0.59) Cytomegalovirus IgM Antibody <30.0 AU/mL (0.0-29.9) Fawad-Duenas Virus Capsid Ag IgG Ab 76.6 U/mL (0.0-17.9) Fawad-Duenas Virus Capsid Ag IgM Ab <36.0 U/mL (0.0-35.9) Fawad-Duenas Nuc Assoc Ag IgG Index 107.0 U/mL (0.0-17.9) Fawad-Duenas Virus Interpretation Comment (.) White Blood Count 3.4 x10^3/uL (4.0-11.0) Red Blood Count 3.46 x10^6/uL (3.50-5.40) Hemoglobin 10.8 g/dL (12.0-15.5) Hematocrit 31.0 % (36.0-47.0) Mean Corpuscular Volume 90 fL (79-100) Mean Corpuscular Hemoglobin 31 pg (25-35) Mean Corpuscular Hemoglobin Concent 35 g/dL (31-37) Red Cell Distribution Width 13.1 % (11.5-14.5) Platelet Count 149 x10^3/uL (140-400) Neutrophils (%) (Auto) 70 % (31-73) Lymphocytes (%) (Auto) 20 % (24-48) Monocytes (%) (Auto) 9 % (0-9) Eosinophils (%) (Auto) 1 % (0-3) Basophils (%) (Auto) 1 % (0-3) Neutrophils # (Auto) 2.4 x10^3/uL (1.8-7.7) Lymphocytes # (Auto) 0.7 x10^3/uL (1.0-4.8) Monocytes # (Auto) 0.3 x10^3/uL (0.0-1.1) Eosinophils # (Auto) 0.0 x10^3/uL (0.0-0.7) Basophils # (Auto) 0.0 x10^3/uL (0.0-0.2) Sodium Level 140 mmol/L (136-145) Potassium Level 4.0 mmol/L (3.5-5.1) Chloride Level 105 mmol/L (98-107) Carbon Dioxide Level 26 mmol/L (21-32) Anion Gap 9 (6-14) Blood Urea Nitrogen 8 mg/dL (7-20) Creatinine 0.6 mg/dL (0.6-1.0) Estimated GFR (Cockcroft-Gault) 100.0 BUN/Creatinine Ratio 13 (6-20) Glucose Level 97 mg/dL (70-99) Calcium Level 8.2 mg/dL (8.5-10.1) Total Bilirubin 0.5 mg/dL (0.2-1.0) Aspartate Amino Transf (AST/SGOT) 104 U/L (15-37) Alanine Aminotransferase (ALT/SGPT) 183 U/L (14-59) Alkaline Phosphatase 244 U/L (46-116) Total Protein 5.3 g/dL (6.4-8.2) Albumin 2.8 g/dL (3.4-5.0) Albumin/Globulin Ratio 1.1 (1.0-1.7) Assessment and Plan Assessmemt and Plan Problems Medical Problems: (1) Cholelithiases Status: Acute (2) Hyperbilirubinemia Status: Acute (3) Transaminitis Status: Acute Comment Review of Relevant I have reviewed the following items annalisa (where applicable) has been applied. Labs Laboratory Tests Test 03/29/20 03:50 03/29/20 13:40 03/30/20 03:45 White Blood Count 2.4 x10^3/uL (4.0-11.0) 3.4 x10^3/uL (4.0-11.0) Red Blood Count 3.83 x10^6/uL (3.50-5.40) 3.46 x10^6/uL (3.50-5.40) Hemoglobin 12.0 g/dL (12.0-15.5) 10.8 g/dL (12.0-15.5) Hematocrit 34.0 % (36.0-47.0) 31.0 % (36.0-47.0) Mean Corpuscular Volume 89 fL (79-100) 90 fL (79-100) Mean Corpuscular Hemoglobin 31 pg (25-35) 31 pg (25-35) Mean Corpuscular Hemoglobin Concent 35 g/dL (31-37) 35 g/dL (31-37) Red Cell Distribution Width 12.8 % (11.5-14.5) 13.1 % (11.5-14.5) Platelet Count 126 x10^3/uL (140-400) 149 x10^3/uL (140-400) Neutrophils (%) (Auto) 71 % (31-73) 70 % (31-73) Lymphocytes (%) (Auto) 17 % (24-48) 20 % (24-48) Monocytes (%) (Auto) 10 % (0-9) 9 % (0-9) Eosinophils (%) (Auto) 2 % (0-3) 1 % (0-3) Basophils (%) (Auto) 1 % (0-3) 1 % (0-3) Neutrophils # (Auto) 1.7 x10^3/uL (1.8-7.7) 2.4 x10^3/uL (1.8-7.7) Lymphocytes # (Auto) 0.4 x10^3/uL (1.0-4.8) 0.7 x10^3/uL (1.0-4.8) Monocytes # (Auto) 0.2 x10^3/uL (0.0-1.1) 0.3 x10^3/uL (0.0-1.1) Eosinophils # (Auto) 0.0 x10^3/uL (0.0-0.7) 0.0 x10^3/uL (0.0-0.7) Basophils # (Auto) 0.0 x10^3/uL (0.0-0.2) 0.0 x10^3/uL (0.0-0.2) Sodium Level 142 mmol/L (136-145) 140 mmol/L (136-145) Potassium Level 3.4 mmol/L (3.5-5.1) 4.0 mmol/L (3.5-5.1) Chloride Level 106 mmol/L (98-107) 105 mmol/L (98-107) Carbon Dioxide Level 24 mmol/L (21-32) 26 mmol/L (21-32) Anion Gap 12 (6-14) 9 (6-14) Blood Urea Nitrogen 7 mg/dL (7-20) 8 mg/dL (7-20) Creatinine 0.6 mg/dL (0.6-1.0) 0.6 mg/dL (0.6-1.0) Estimated GFR (Cockcroft-Gault) 100.0 100.0 BUN/Creatinine Ratio 12 (6-20) 13 (6-20) Glucose Level 98 mg/dL (70-99) 97 mg/dL (70-99) Calcium Level 8.0 mg/dL (8.5-10.1) 8.2 mg/dL (8.5-10.1) Total Bilirubin 0.6 mg/dL (0.2-1.0) 0.5 mg/dL (0.2-1.0) Aspartate Amino Transf (AST/SGOT) 226 U/L (15-37) 104 U/L (15-37) Alanine Aminotransferase (ALT/SGPT) 251 U/L (14-59) 183 U/L (14-59) Alkaline Phosphatase 269 U/L (46-116) 244 U/L (46-116) Total Protein 5.8 g/dL (6.4-8.2) 5.3 g/dL (6.4-8.2) Albumin 2.9 g/dL (3.4-5.0) 2.8 g/dL (3.4-5.0) Albumin/Globulin Ratio 1.0 (1.0-1.7) 1.1 (1.0-1.7) Vitamin B12 Level 706 pg/mL (247-911) Cytomegalovirus IgG Antibody >10.00 U/mL (0.00-0.59) Cytomegalovirus IgM Antibody <30.0 AU/mL (0.0-29.9) Fawad-Duenas Virus Capsid Ag IgG Ab 76.6 U/mL (0.0-17.9) Fawad-Duenas Virus Capsid Ag IgM Ab <36.0 U/mL (0.0-35.9) Fawad-Duenas Nuc Assoc Ag IgG Index 107.0 U/mL (0.0-17.9) Fawad-Duenas Virus Interpretation Comment (.) Laboratory Tests Test 03/29/20 13:40 03/30/20 03:45 Cytomegalovirus IgG Antibody >10.00 U/mL (0.00-0.59) Cytomegalovirus IgM Antibody <30.0 AU/mL (0.0-29.9) Fawad-Duenas Virus Capsid Ag IgG Ab 76.6 U/mL (0.0-17.9) Fawad-Duenas Virus Capsid Ag IgM Ab <36.0 U/mL (0.0-35.9) Fawad-Duenas Nuc Assoc Ag IgG Index 107.0 U/mL (0.0-17.9) Fawad-Duenas Virus Interpretation Comment (.) White Blood Count 3.4 x10^3/uL (4.0-11.0) Red Blood Count 3.46 x10^6/uL (3.50-5.40) Hemoglobin 10.8 g/dL (12.0-15.5) Hematocrit 31.0 % (36.0-47.0) Mean Corpuscular Volume 90 fL (79-100) Mean Corpuscular Hemoglobin 31 pg (25-35) Mean Corpuscular Hemoglobin Concent 35 g/dL (31-37) Red Cell Distribution Width 13.1 % (11.5-14.5) Platelet Count 149 x10^3/uL (140-400) Neutrophils (%) (Auto) 70 % (31-73) Lymphocytes (%) (Auto) 20 % (24-48) Monocytes (%) (Auto) 9 % (0-9) Eosinophils (%) (Auto) 1 % (0-3) Basophils (%) (Auto) 1 % (0-3) Neutrophils # (Auto) 2.4 x10^3/uL (1.8-7.7) Lymphocytes # (Auto) 0.7 x10^3/uL (1.0-4.8) Monocytes # (Auto) 0.3 x10^3/uL (0.0-1.1) Eosinophils # (Auto) 0.0 x10^3/uL (0.0-0.7) Basophils # (Auto) 0.0 x10^3/uL (0.0-0.2) Sodium Level 140 mmol/L (136-145) Potassium Level 4.0 mmol/L (3.5-5.1) Chloride Level 105 mmol/L (98-107) Carbon Dioxide Level 26 mmol/L (21-32) Anion Gap 9 (6-14) Blood Urea Nitrogen 8 mg/dL (7-20) Creatinine 0.6 mg/dL (0.6-1.0) Estimated GFR (Cockcroft-Gault) 100.0 BUN/Creatinine Ratio 13 (6-20) Glucose Level 97 mg/dL (70-99) Calcium Level 8.2 mg/dL (8.5-10.1) Total Bilirubin 0.5 mg/dL (0.2-1.0) Aspartate Amino Transf (AST/SGOT) 104 U/L (15-37) Alanine Aminotransferase (ALT/SGPT) 183 U/L (14-59) Alkaline Phosphatase 244 U/L (46-116) Total Protein 5.3 g/dL (6.4-8.2) Albumin 2.8 g/dL (3.4-5.0) Albumin/Globulin Ratio 1.1 (1.0-1.7) Microbiology 03/27/20 Urine Culture - Final, Complete Medications Current Medications Ondansetron HCl (Zofran) 4 mg PRN Q8HRS PRN IV NAUSEA/VOMITING; Start 03/27/20 at 07:45; Stop 03/28/20 at 07:44; Status DC Morphine Sulfate (Morphine Sulfate) 2 mg PRN Q2HR PRN IV PAIN; Start 03/27/20 at 07:45; Stop 03/28/20 at 07:44; Status DC Influenza Virus Vaccine Quadrival (Fluzone Quad Syringe) 0.5 ml ONCE ONCE VAX IM ; Start 03/27/20 at 11:00; Stop 03/27/20 at 11:01; Status DC Pantoprazole Sodium (Protonix) 40 mg DAILYAC PO Last administered on 03/30/20at 07:37; Start 03/27/20 at 15:00 Acetaminophen (Tylenol) 650 mg PRN Q4HRS PRN PO MILD PAIN / TEMP > 100.3'F Last administered on 03/28/20at 21:59; Start 03/27/20 at 16:00 Fentanyl Citrate (Fentanyl 2ml Vial) 25 mcg PRN Q5MIN PRN IV MILD PAIN 1-3; Start 03/28/20 at 07:00; Stop 03/29/20 at 06:59; Status DC Fentanyl Citrate (Fentanyl 2ml Vial) 50 mcg PRN Q5MIN PRN IV MODERATE TO SEVERE PAIN; Start 03/28/20 at 07:00; Stop 03/29/20 at 06:59; Status DC Morphine Sulfate (Morphine Sulfate) 1 mg PRN Q10MIN PRN IV SEVERE PAIN 7-10; Start 03/28/20 at 07:00; Stop 03/29/20 at 06:59; Status DC Ringer's Solution 1,000 ml @ 30 mls/hr Q24H IV Last administered on 03/28/20at 07:00; Start 03/28/20 at 07:00; Stop 03/28/20 at 18:59; Status DC Hydromorphone HCl (Dilaudid) 0.5 mg PRN Q10MIN PRN IV SEV PAIN, Second choice; Start 03/28/20 at 07:00; Stop 03/29/20 at 06:59; Status DC Prochlorperazine Edisylate (Compazine) 5 mg PACU PRN PRN IV NAUSEA, MRX1; Start 03/28/20 at 07:00; Stop 03/29/20 at 06:59; Status DC Aspirin (Ecotrin) 81 mg DAILY PO ; Start 03/28/20 at 09:00 Hydroxychloroquine Sulfate (Plaquenil) 200 mg BID PO Last administered on 03/29/20at 19:44; Start 03/27/20 at 21:00 Levothyroxine Sodium (Synthroid) 50 mcg DAILY PO ; Start 03/28/20 at 09:00 Vitamin D (Vitamin D3) 5,000 unit DAILY PO ; Start 03/28/20 at 09:00 Sennosides (Senna) 17.2 mg PRN BID PRN PO CONSTIPATION; Start 03/27/20 at 17:15 Docusate Sodium (Colace) 100 mg PRN DAILY PRN PO HARD STOOLS; Start 03/27/20 at 17:15 Ondansetron HCl (Zofran) 4 mg PRN Q6HRS PRN IVP NAUSEA/VOMITING; Start 03/27/20 at 17:15 Potassium Chloride (Klor-Con) 40 meq 1X PRN PO PER PROTOCOL; Start 03/27/20 at 17:15; Status UNV Magnesium Oxide (Magnesium Oxide) 400 mg BID PO ; Start 03/27/20 at 21:00; Stop 03/29/20 at 09:01; Status UNV Potassium Chloride/Water 100 ml @ 100 mls/hr Q1H IV ; Start 03/27/20 at 17:15; Stop 03/27/20 at 21:14; Status UNV Magnesium Sulfate 50 ml @ 25 mls/hr Q24H IV ; Start 03/27/20 at 17:15; Stop 03/29/20 at 19:14; Status UNV Potassium Chloride/Water 100 ml @ 100 mls/hr Q1H PRN IV low k; Start 03/27/20 at 17:15; Status UNV Dextrose (Dextrose 50%-Water Syringe) 12.5 gm PRN Q15MIN PRN IV SEE COMMENTS; Start 03/27/20 at 17:15 Sodium Chloride 1,000 ml @ 100 mls/hr Q10H IV Last administered on 03/29/20at 00:07; Start 03/27/20 at 17:05 Enoxaparin Sodium (Lovenox 40mg Syringe) 40 mg Q24H SQ ; Start 03/27/20 at 21:00 Morphine Sulfate (Morphine Sulfate) 2 mg PRN Q2HR PRN IV SEVERE PAIN 7-10; Start 03/27/20 at 04:00; Stop 03/28/20 at 03:59; Status DC Info (Non-Icu Electrolyte Protocol) 1 ea CONT PRN PRN MC PER PROTOCOL; Start 03/27/20 at 17:15 Iohexol (Omnipaque 300 Mg/ml) 50 ml STK-MED ONCE .ROUTE Last administered on 03/29/20at 08:20; Start 03/29/20 at 06:53; Stop 03/29/20 at 06:53; Status DC Cellulose (Surgicel Hemostat 4x8) 1 each STK-MED ONCE .ROUTE ; Start 03/29/20 at 06:53; Stop 03/29/20 at 06:53; Status DC Bupivacaine HCl (Sensorcaine Mpf 0.5%) 30 ml STK-MED ONCE .ROUTE Last administered on 03/29/20at 08:19; Start 03/29/20 at 06:53; Stop 03/29/20 at 06:53; Status DC Rocuronium Hominy (Zemuron) 50 mg STK-MED ONCE .ROUTE ; Start 03/29/20 at 07:20; Stop 03/29/20 at 07:20; Status DC Midazolam HCl (Versed) 2 mg STK-MED ONCE .ROUTE ; Start 03/29/20 at 07:20; Stop 03/29/20 at 07:20; Status DC Fentanyl Citrate (Fentanyl 5ml Vial) 250 mcg STK-MED ONCE .ROUTE ; Start 03/29/20 at 07:20; Stop 03/29/20 at 07:21; Status DC Cefazolin Sodium (Ancef) 1 gm STK-MED ONCE IVP ; Start 03/29/20 at 07:31; Stop 03/29/20 at 07:31; Status DC Cefazolin Sodium/ Dextrose 50 ml @ 100 mls/hr 1X ONCE IV Last administered on 03/29/20at 07:43; Start 03/29/20 at 07:45; Stop 03/29/20 at 08:14; Status DC Glycopyrrolate (Robinul) 1 mg STK-MED ONCE .ROUTE ; Start 03/29/20 at 08:50; Stop 03/29/20 at 08:50; Status DC Neostigmine Hominy (Neostigmine Methylsulfate) 5 mg STK-MED ONCE .ROUTE ; Start 03/29/20 at 08:50; Stop 03/29/20 at 08:50; Status DC Acetaminophen/ Hydrocodone Bitart (Lortab 5/325) 1 tab PRN Q4HRS PRN PO MODERATE PAIN Last administered on 03/30/20at 05:05; Start 03/29/20 at 09:00 Acetaminophen/ Hydrocodone Bitart (Lortab 5/325) 2 tab PRN Q4HRS PRN PO SEVERE PAIN; Start 03/29/20 at 09:00 Sevoflurane (Ultane) 60 ml STK-MED ONCE IH ; Start 03/29/20 at 09:15; Stop 03/29/20 at 09:15; Status DC Propofol (Diprivan) 200 mg STK-MED ONCE IV ; Start 03/29/20 at 09:16; Stop 03/29/20 at 09:16; Status DC Lidocaine HCl (Lidocaine Pf 2% Vial) 5 ml STK-MED ONCE .ROUTE ; Start 03/29/20 at 09:16; Stop 03/29/20 at 09:16; Status DC Ondansetron HCl (Zofran) 4 mg STK-MED ONCE .ROUTE ; Start 03/29/20 at 09:16; Stop 03/29/20 at 09:16; Status DC Dexamethasone Sodium Phosphate (Decadron) 4 mg STK-MED ONCE .ROUTE ; Start 03/29/20 at 09:16; Stop 03/29/20 at 09:16; Status DC Fentanyl Citrate (Fentanyl 2ml Vial) 25 mcg PRN Q5MIN PRN IV MILD PAIN 1-3; Start 03/29/20 at 09:30; Stop 03/29/20 at 12:24; Status DC Fentanyl Citrate (Fentanyl 2ml Vial) 50 mcg PRN Q5MIN PRN IV MODERATE TO SEVERE PAIN Last administered on 03/29/20at 10:04; Start 03/29/20 at 09:30; Stop 1 05/29/19 at 12:24; Status DC Morphine Sulfate (Morphine Sulfate) 2 mg PRN Q10MIN PRN IV MILD PAIN 1-3; Start 03/29/20 at 09:30; Stop 03/29/20 at 12:24; Status DC Hydromorphone HCl (Dilaudid) 0.5 mg PRN Q10MIN PRN IV Moderate to severe pain; Start 03/29/20 at 09:30; Stop 03/29/20 at 12:24; Status DC Prochlorperazine Edisylate (Compazine) 5 mg PRN Q6HRS PRN IV Nausea/Vomiting, 1st Choice; Start 03/29/20 at 09:30; Stop 03/29/20 at 12:24; Status DC Fentanyl Citrate (Fentanyl 2ml Vial) 100 mcg STK-MED ONCE .ROUTE ; Start 03/29/20 at 10:01; Stop 03/29/20 at 10:01; Status DC Potassium Chloride (Klor-Con) 40 meq 1X ONCE PO Last administered on 03/29/20at 17:49; Start 03/29/20 at 13:00; Stop 03/29/20 at 13:01; Status DC Active Scripts Active Reported Doran 5-325 Tablet (Acetaminophen/Hydrocodone Bitart) 1 Each Tablet 1 Tab PO PRN Q4-6HRS PRN Vitamin D3 (Cholecalciferol (Vitamin D3)) 1,250 Mcg Capsule 5,000 Mcg PO DAILY Hydroxychloroquine Sulfate 200 Mg Tablet 200 Mg PO BID Lisinopril-Hctz 10-12.5 Mg Tab (Lisinopril/Hydrochlorothiazide) 1 Each Tablet 1 Tab PO DAILY Fish Oil ([place]-3 Fatty Acids) 500 Mg Capsule 500 Mg PO Calcium (Calcium Carbonate) 600 Mg Tablet 600 Mg PO Aspir 81 (Aspirin) 81 Mg Tablet.dr 1 Tab PO DAILY Multi Vitamin Daily (Multivitamin) 1 Each Tablet 1 Each PO Levothyroxine Sodium 50 Mcg Tablet 1 Tab PO DAILY Pravastatin Sodium 80 Mg Tablet 1 Tab PO DAILY Combipatch 0.05-0.14 Mg Ptch (Estradiol/Norethindrone Acet) 1 Each Patch.tdsw 1 Patch TD TWICE WEEKLY Vitals/I & O Vital Sign - Last 24 Hours 03/29/20 03/29/20 03/29/20 03/29/20 09:03 09:03 09:15 09:30 Temp 99.2 99.2 Pulse 70 74 71 Resp 18 18 16 B/P (MAP) 122/65 101/58 106/57 Pulse Ox 98 98 95 O2 Delivery Simple Mask Room Air Simple Mask Room Air O2 Flow Rate 8 8 03/29/20 03/29/20 03/29/20 03/29/20 09:36 09:43 10:00 10:04 Temp 98.9 98.9 Pulse 72 71 Resp 16 16 16 B/P (MAP) 107/63 108/57 Pulse Ox 94 94 94 O2 Delivery Room Air Room Air Room Air Room Air 03/29/20 03/29/20 03/29/20 03/29/20 10:14 10:14 10:15 10:29 Temp 98.4 98.4 Pulse 72 73 77 Resp 17 20 17 B/P (MAP) 104/55 (71) 104/55 (71) 101/59 (73) Pulse Ox 92 93 95 O2 Delivery Room Air Room Air Room Air Room Air 03/29/20 03/29/20 03/29/20 03/29/20 10:30 10:44 10:59 11:14 Pulse 77 68 67 Resp 18 17 18 B/P (MAP) 115/61 (79) 107/56 (73) 105/57 (73) Pulse Ox 93 97 97 O2 Delivery Room Air Room Air Room Air Room Air 03/29/20 03/29/20 03/29/20 03/29/20 11:29 11:44 11:59 12:59 Pulse 66 68 68 73 Resp 18 18 18 18 B/P (MAP) 103/55 (71) 109/58 (75) 100/57 (71) 106/51 (69) Pulse Ox 97 97 97 97 O2 Delivery Room Air Room Air Room Air Room Air 03/29/20 03/29/20 03/29/20 03/29/20 15:21 19:25 19:44 20:00 Temp 98.1 99.3 98.1 99.3 Pulse 72 72 Resp 16 20 B/P (MAP) 97/56 (70) 96/57 (70) Pulse Ox 92 94 92 O2 Delivery Room Air Room Air Room Air 03/29/20 03/29/20 03/30/20 03/30/20 20:44 23:04 03:00 05:05 Temp 98.6 98.6 Pulse 68 Resp 18 18 18 20 B/P (MAP) 102/62 (75) Pulse Ox 92 94 92 O2 Delivery Room Air Room Air 03/30/20 03/30/20 06:05 07:31 Temp 97.9 97.9 Pulse 67 Resp 18 17 B/P (MAP) 110/60 (77) Pulse Ox 96 O2 Delivery Room Air Room Air Intake and Output 03/29/20 03/29/20 03/30/20 15:00 23:00 07:00 Intake Total 2330 ml 280 ml 200 ml Output Total 260 ml Balance 2070 ml 280 ml 200 ml Justicifation of Admission Dx: Justifications for Admission: Justification of Admission Dx: Yes HEENA RIOS MD Mar 30, 2020 08:44
[2020-03-30] MEDS: ASPIRIN ENTERIC COATED 81 MG TABLET.DR. PO SCH (08:58)
[2020-03-30] MEDS: HYDROXYCHLOROQUINE 200 MG TABLET PO SCH (08:58)
[2020-03-30] MEDS: CHOLECALCIFEROL (VITAMIN D3) 5,000 UNIT CAPSULE PO SCH (08:58)
[2020-03-30] MEDS: LEVOTHYROXINE 50 MCG TABLET PO SCH (08:58)
--- NOTE | 2020-03-30 09:29 | NUR ---
SW following. Discussed with RN, pt from home, room air, low fat diet. Pt wanting to discharge home today. RN anticipates discharge with no SW needs.
[2020-03-30] MEDS ORDERED: HYDR-2761 PO (09:30)
--- NOTE | 2020-03-30 09:32 | PDOC ---
[employer] 03/30/20 0932: SURGICAL PROGRESS NOTE DATE: 03/30/20 TIME: 09:31 Subjective tolerating diet feeling better urinating Vital Signs Vital Signs Date Time Temp Pulse Resp B/P (MAP) Pulse Ox O2 Delivery O2 Flow Rate FiO2 03/30/20 07:31 97.9 67 17 110/60 (77) 96 Room Air 97.9 03/29/20 09:15 8 I&O Intake and Output 03/30/20 07:00 Intake Total 2810 ml Output Total 260 ml Balance 2550 ml Intake Oral 660 ml IV Total 2150 ml Output Urine Total 250 ml Estimated Blood Loss 10 ml # Voids 1 General: Alert, Oriented X3, Cooperative Abdomen: Soft, Other (lap sites c/d/i) Labs Laboratory Tests Test 03/29/20 03:50 03/29/20 13:40 03/30/20 03:45 White Blood Count 2.4 x10^3/uL (4.0-11.0) 3.4 x10^3/uL (4.0-11.0) Red Blood Count 3.83 x10^6/uL (3.50-5.40) 3.46 x10^6/uL (3.50-5.40) Hemoglobin 12.0 g/dL (12.0-15.5) 10.8 g/dL (12.0-15.5) Hematocrit 34.0 % (36.0-47.0) 31.0 % (36.0-47.0) Mean Corpuscular Volume 89 fL (79-100) 90 fL (79-100) Mean Corpuscular Hemoglobin 31 pg (25-35) 31 pg (25-35) Mean Corpuscular Hemoglobin Concent 35 g/dL (31-37) 35 g/dL (31-37) Red Cell Distribution Width 12.8 % (11.5-14.5) 13.1 % (11.5-14.5) Platelet Count 126 x10^3/uL (140-400) 149 x10^3/uL (140-400) Neutrophils (%) (Auto) 71 % (31-73) 70 % (31-73) Lymphocytes (%) (Auto) 17 % (24-48) 20 % (24-48) Monocytes (%) (Auto) 10 % (0-9) 9 % (0-9) Eosinophils (%) (Auto) 2 % (0-3) 1 % (0-3) Basophils (%) (Auto) 1 % (0-3) 1 % (0-3) Neutrophils # (Auto) 1.7 x10^3/uL (1.8-7.7) 2.4 x10^3/uL (1.8-7.7) Lymphocytes # (Auto) 0.4 x10^3/uL (1.0-4.8) 0.7 x10^3/uL (1.0-4.8) Monocytes # (Auto) 0.2 x10^3/uL (0.0-1.1) 0.3 x10^3/uL (0.0-1.1) Eosinophils # (Auto) 0.0 x10^3/uL (0.0-0.7) 0.0 x10^3/uL (0.0-0.7) Basophils # (Auto) 0.0 x10^3/uL (0.0-0.2) 0.0 x10^3/uL (0.0-0.2) Sodium Level 142 mmol/L (136-145) 140 mmol/L (136-145) Potassium Level 3.4 mmol/L (3.5-5.1) 4.0 mmol/L (3.5-5.1) Chloride Level 106 mmol/L (98-107) 105 mmol/L (98-107) Carbon Dioxide Level 24 mmol/L (21-32) 26 mmol/L (21-32) Anion Gap 12 (6-14) 9 (6-14) Blood Urea Nitrogen 7 mg/dL (7-20) 8 mg/dL (7-20) Creatinine 0.6 mg/dL (0.6-1.0) 0.6 mg/dL (0.6-1.0) Estimated GFR (Cockcroft-Gault) 100.0 100.0 BUN/Creatinine Ratio 12 (6-20) 13 (6-20) Glucose Level 98 mg/dL (70-99) 97 mg/dL (70-99) Calcium Level 8.0 mg/dL (8.5-10.1) 8.2 mg/dL (8.5-10.1) Total Bilirubin 0.6 mg/dL (0.2-1.0) 0.5 mg/dL (0.2-1.0) Aspartate Amino Transf (AST/SGOT) 226 U/L (15-37) 104 U/L (15-37) Alanine Aminotransferase (ALT/SGPT) 251 U/L (14-59) 183 U/L (14-59) Alkaline Phosphatase 269 U/L (46-116) 244 U/L (46-116) Total Protein 5.8 g/dL (6.4-8.2) 5.3 g/dL (6.4-8.2) Albumin 2.9 g/dL (3.4-5.0) 2.8 g/dL (3.4-5.0) Albumin/Globulin Ratio 1.0 (1.0-1.7) 1.1 (1.0-1.7) Vitamin B12 Level 706 pg/mL (247-911) Cytomegalovirus IgG Antibody >10.00 U/mL (0.00-0.59) Cytomegalovirus IgM Antibody <30.0 AU/mL (0.0-29.9) Fawad-Duenas Virus Capsid Ag IgG Ab 76.6 U/mL (0.0-17.9) Fawad-Duenas Virus Capsid Ag IgM Ab <36.0 U/mL (0.0-35.9) Fawad-Duenas Nuc Assoc Ag IgG Index 107.0 U/mL (0.0-17.9) Fawad-Duenas Virus Interpretation Comment (.) Laboratory Tests Test 03/29/20 13:40 03/30/20 03:45 Cytomegalovirus IgG Antibody >10.00 U/mL (0.00-0.59) Cytomegalovirus IgM Antibody <30.0 AU/mL (0.0-29.9) Fawad-Duenas Virus Capsid Ag IgG Ab 76.6 U/mL (0.0-17.9) Fawad-Duenas Virus Capsid Ag IgM Ab <36.0 U/mL (0.0-35.9) Fawad-Duenas Nuc Assoc Ag IgG Index 107.0 U/mL (0.0-17.9) Fawad-Duenas Virus Interpretation Comment (.) White Blood Count 3.4 x10^3/uL (4.0-11.0) Red Blood Count 3.46 x10^6/uL (3.50-5.40) Hemoglobin 10.8 g/dL (12.0-15.5) Hematocrit 31.0 % (36.0-47.0) Mean Corpuscular Volume 90 fL (79-100) Mean Corpuscular Hemoglobin 31 pg (25-35) Mean Corpuscular Hemoglobin Concent 35 g/dL (31-37) Red Cell Distribution Width 13.1 % (11.5-14.5) Platelet Count 149 x10^3/uL (140-400) Neutrophils (%) (Auto) 70 % (31-73) Lymphocytes (%) (Auto) 20 % (24-48) Monocytes (%) (Auto) 9 % (0-9) Eosinophils (%) (Auto) 1 % (0-3) Basophils (%) (Auto) 1 % (0-3) Neutrophils # (Auto) 2.4 x10^3/uL (1.8-7.7) Lymphocytes # (Auto) 0.7 x10^3/uL (1.0-4.8) Monocytes # (Auto) 0.3 x10^3/uL (0.0-1.1) Eosinophils # (Auto) 0.0 x10^3/uL (0.0-0.7) Basophils # (Auto) 0.0 x10^3/uL (0.0-0.2) Sodium Level 140 mmol/L (136-145) Potassium Level 4.0 mmol/L (3.5-5.1) Chloride Level 105 mmol/L (98-107) Carbon Dioxide Level 26 mmol/L (21-32) Anion Gap 9 (6-14) Blood Urea Nitrogen 8 mg/dL (7-20) Creatinine 0.6 mg/dL (0.6-1.0) Estimated GFR (Cockcroft-Gault) 100.0 BUN/Creatinine Ratio 13 (6-20) Glucose Level 97 mg/dL (70-99) Calcium Level 8.2 mg/dL (8.5-10.1) Total Bilirubin 0.5 mg/dL (0.2-1.0) Aspartate Amino Transf (AST/SGOT) 104 U/L (15-37) Alanine Aminotransferase (ALT/SGPT) 183 U/L (14-59) Alkaline Phosphatase 244 U/L (46-116) Total Protein 5.3 g/dL (6.4-8.2) Albumin 2.8 g/dL (3.4-5.0) Albumin/Globulin Ratio 1.1 (1.0-1.7) Problem List Problems Medical Problems: (1) Cholelithiases Status: Acute (2) Hyperbilirubinemia Status: Acute (3) Transaminitis Status: Acute Assessment/Plan s/p ella ok to dc from surgical POV Justicifation of Admission Dx: Justifications for Admission: Justification of Admission Dx: Yes HEENA OJEDA MD 03/30/20 1107: SURGICAL PROGRESS NOTE Assessment/Plan Agree with Sveta assessment and plan TREE THAYER APRN Mar 30, 2020 09:32 HEENA OJEDA MD Mar 30, 2020 11:07
--- NOTE | 2020-03-30 09:33 | PDOC ---
Date of Service: DATE: 03/30/20 TIME: 09:30 Subjective: Subjective: Has mild incisional pain but otherwise feels better. Tolerating diet, passing gas. Says she's going home today no matter what. Objective: Vital Signs: Vital Signs Date Time Temp Pulse Resp B/P (MAP) Pulse Ox O2 Delivery O2 Flow Rate FiO2 03/30/20 07:31 97.9 67 17 110/60 (77) 96 Room Air 97.9 03/29/20 09:15 8 Labs: Laboratory Tests Test 03/29/20 13:40 03/30/20 03:45 Cytomegalovirus IgG Antibody >10.00 U/mL Cytomegalovirus IgM Antibody <30.0 AU/mL Fawad-Duenas Virus Capsid Ag IgG Ab 76.6 U/mL Fawad-Duenas Virus Capsid Ag IgM Ab <36.0 U/mL Fawad-Duenas Nuc Assoc Ag IgG Index 107.0 U/mL Fawad-Duenas Virus Interpretation Comment White Blood Count 3.4 x10^3/uL Red Blood Count 3.46 x10^6/uL Hemoglobin 10.8 g/dL Hematocrit 31.0 % Mean Corpuscular Volume 90 fL Mean Corpuscular Hemoglobin 31 pg Mean Corpuscular Hemoglobin Concent 35 g/dL Red Cell Distribution Width 13.1 % Platelet Count 149 x10^3/uL Neutrophils (%) (Auto) 70 % Lymphocytes (%) (Auto) 20 % Monocytes (%) (Auto) 9 % Eosinophils (%) (Auto) 1 % Basophils (%) (Auto) 1 % Neutrophils # (Auto) 2.4 x10^3/uL Lymphocytes # (Auto) 0.7 x10^3/uL Monocytes # (Auto) 0.3 x10^3/uL Eosinophils # (Auto) 0.0 x10^3/uL Basophils # (Auto) 0.0 x10^3/uL Sodium Level 140 mmol/L Potassium Level 4.0 mmol/L Chloride Level 105 mmol/L Carbon Dioxide Level 26 mmol/L Anion Gap 9 Blood Urea Nitrogen 8 mg/dL Creatinine 0.6 mg/dL Estimated GFR (Cockcroft-Gault) 100.0 BUN/Creatinine Ratio 13 Glucose Level 97 mg/dL Calcium Level 8.2 mg/dL Total Bilirubin 0.5 mg/dL Aspartate Amino Transf (AST/SGOT) 104 U/L Alanine Aminotransferase (ALT/SGPT) 183 U/L Alkaline Phosphatase 244 U/L Total Protein 5.3 g/dL Albumin 2.8 g/dL Albumin/Globulin Ratio 1.1 URINE CULTURE Final Final No Growth on 03/28/20 at 0955 PE: GEN: NAD LUNGS: CTAB HEART: RRR ABD: soft, quiet BS NEURO/PSYCH: A & O 3 A/P: S/p cholecystectomy, abnormal IOC Elevated AST, ALT, Alk Phos - better - ?related to Plaquenil Hepatic steatosis COVID negative 03/27 -- Reviewed w/ Dr. Livingston - HAYDEE okay per GI, follow-up to recheck LFTs/additional liver tests as outpt. Justicifation of Admission Dx: Justifications for Admission: Justification of Admission Dx: Yes LULI ALVAREZ Mar 30, 2020 09:33
[2020-03-30 10:29] VITALS: BP 96/55
--- NOTE | 2020-03-30 11:10 | PDOC3 ---
Discharge Summary Date of Admission: Mar 27, 2020 Date of Discharge: Mar 30, 2020 Follow-Up: 3-5 days Admitting Diagnosis comment: Images: Images ABD US IMPRESSION: 1. Cholelithiasis. No inflammatory changes of the gallbladder evident. No biliary ductal dilation. 2. Increased liver echogenicity likely representing steatosis. DISCHARGE DX POD # 1 Assessment/Plan Acute abdominal pain due to symptomatic cholelithiasis Transaminitis Leukopenia, thrombocytopenia (new), elevated LFTs (fluctuating) - negative Hep panel // neutropenia, lymphopenia and thrombocytopenia are reactive secondary to the above Cholelithiasis - normal CBD Hepatic steatosis, h/o RA on Plaquenil PLAN Admit to medicine for further management Pending surgical evaluation for cholelithiasis Pending GI evaluation for elevated liver enzymes Continue IV fluids while n.p.o. We will hold off on antibiotics at this time unless patient has elevated white count or fevers. Her abdominal exam is benign at this time. Pending H. pylori antigen study Pending hepatitis panel Lovenox for DVT prophylaxis Protonix GI prophylaxis ADA diet Full code Discussed with RN and SW Disposition pending evaluation and treatment as above Surrogate decision maker is the plan for Lap ella 03/29 heme consult DC okay per GI, follow-up to recheck LFTs/additional liver tests as outpt. D/W RN 33 MIN PT EXAM, CHART REVIEW D/C PLANNING , > 50% OF TIME SPENT WITH EXAM, CHART REVIEW, PT CARE COORDINATION Justifications for Admission Justifications for Admission Other Justification History of Present Illness History of Present Illness Chief Complaint: Chief Complain: Bloating and fever History of Present Illness: HPI: Patient is a 64-year-old female with past medical history of dyslipidemia, hypertension, hypothyroidism, rheumatoid arthritis who presents with a 2-day history of subjective fever and abdominal bloatedness. Patient states she also had some minor congestion and cough. She denies any Covid exposure. 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 She denies any abdominal pain does but does feel distention. She does also notice her urine to be darker in the past 3 days. Denies any frequency, incontinence, urgency, or dysuria. Denies any diarrhea or bloody stools. Of note, patient did have a history of H. pylori infection for which she was treated 8 years ago. She was retested with a urea breath test and was negative at that time. Past Medical/Surgical History: PMH/PSH: Past Medical History: High Cholesterol, Hypertension, Hypothyroid, rheumatoid arthritis Past Surgical History: Hysterectomy Allergies: Allergies: Coded Allergies: No Known Drug Allergies (Unverified , 03/05/20) Family History: Family History: Reviewed and none reported Social History: Social History: Smoking Status: Never Smoker Alcohol Use: None Drug Use: None Vitals Vitals Vital Signs ON ROOM AIR Date Time Temp Pulse Resp B/P (MAP) Pulse Ox O2 Delivery O2 Flow Rate FiO2 03/30/20 07:31 97.9 67 17 110/60 (77) 96 Room Air 97.9 03/29/20 09:15 8 Physical Exam General: Alert, Oriented X3, Cooperative, No acute distress Heart: Regular rate, Normal S1, Normal S2 Lungs: Clear Abdomen: Normal bowel sounds, Soft Extremities: No clubbing, No cyanosis, No edema Skin: No rashes FINAL DIAGNOSIS Problems Medical Problems: (1) Cholelithiases Status: Acute (2) Hyperbilirubinemia Status: Acute (3) Transaminitis Status: Acute Brief Hospital Course Ms. Hartmann is a 64 old [sex] who presented with [ACUTE CHOLECYSTITIS ] CONDITION AT DISCHARGE: Improved Discharge Medications Current Medications Ondansetron HCl (Zofran) 4 mg PRN Q8HRS PRN IV NAUSEA/VOMITING; Start 03/27/20 at 07:45; Stop 03/28/20 at 07:44; Status DC Morphine Sulfate (Morphine Sulfate) 2 mg PRN Q2HR PRN IV PAIN; Start 03/27/20 at 07:45; Stop 03/28/20 at 07:44; Status DC Influenza Virus Vaccine Quadrival (Fluzone Quad Syringe) 0.5 ml ONCE ONCE VAX IM ; Start 03/27/20 at 11:00; Stop 03/27/20 at 11:01; Status DC Pantoprazole Sodium (Protonix) 40 mg DAILYAC PO Last administered on 03/30/20at 07:37; Start 03/27/20 at 15:00 Acetaminophen (Tylenol) 650 mg PRN Q4HRS PRN PO MILD PAIN / TEMP > 100.3'F Last administered on 03/28/20at 21:59; Start 03/27/20 at 16:00 Fentanyl Citrate (Fentanyl 2ml Vial) 25 mcg PRN Q5MIN PRN IV MILD PAIN 1-3; Start 03/28/20 at 07:00; Stop 03/29/20 at 06:59; Status DC Fentanyl Citrate (Fentanyl 2ml Vial) 50 mcg PRN Q5MIN PRN IV MODERATE TO SEVERE PAIN; Start 03/28/20 at 07:00; Stop 03/29/20 at 06:59; Status DC Morphine Sulfate (Morphine Sulfate) 1 mg PRN Q10MIN PRN IV SEVERE PAIN 7-10; Start 03/28/20 at 07:00; Stop 03/29/20 at 06:59; Status DC Ringer's Solution 1,000 ml @ 30 mls/hr Q24H IV Last administered on 03/28/20at 07:00; Start 03/28/20 at 07:00; Stop 03/28/20 at 18:59; Status DC Hydromorphone HCl (Dilaudid) 0.5 mg PRN Q10MIN PRN IV SEV PAIN, Second choice; Start 03/28/20 at 07:00; Stop 03/29/20 at 06:59; Status DC Prochlorperazine Edisylate (Compazine) 5 mg PACU PRN PRN IV NAUSEA, MRX1; Start 03/28/20 at 07:00; Stop 03/29/20 at 06:59; Status DC Aspirin (Ecotrin) 81 mg DAILY PO Last administered on 03/30/20at 08:58; Start 03/28/20 at 09:00 Hydroxychloroquine Sulfate (Plaquenil) 200 mg BID PO Last administered on 03/30/20at 08:58; Start 03/27/20 at 21:00 Levothyroxine Sodium (Synthroid) 50 mcg DAILY PO Last administered on 03/30/20at 08:58; Start 03/28/20 at 09:00 Vitamin D (Vitamin D3) 5,000 unit DAILY PO Last administered on 03/30/20at 08:58; Start 03/28/20 at 09:00 Sennosides (Senna) 17.2 mg PRN BID PRN PO CONSTIPATION; Start 03/27/20 at 17:15 Docusate Sodium (Colace) 100 mg PRN DAILY PRN PO HARD STOOLS; Start 03/27/20 at 17:15 Ondansetron HCl (Zofran) 4 mg PRN Q6HRS PRN IVP NAUSEA/VOMITING; Start 03/27/20 at 17:15 Potassium Chloride (Klor-Con) 40 meq 1X PRN PO PER PROTOCOL; Start 03/27/20 at 17:15; Status UNV Magnesium Oxide (Magnesium Oxide) 400 mg BID PO ; Start 03/27/20 at 21:00; Stop 03/29/20 at 09:01; Status UNV Potassium Chloride/Water 100 ml @ 100 mls/hr Q1H IV ; Start 03/27/20 at 17:15; Stop 03/27/20 at 21:14; Status UNV Magnesium Sulfate 50 ml @ 25 mls/hr Q24H IV ; Start 03/27/20 at 17:15; Stop 03/29/20 at 19:14; Status UNV Potassium Chloride/Water 100 ml @ 100 mls/hr Q1H PRN IV low k; Start 03/27/20 at 17:15; Status UNV Dextrose (Dextrose 50%-Water Syringe) 12.5 gm PRN Q15MIN PRN IV SEE COMMENTS; Start 03/27/20 at 17:15 Sodium Chloride 1,000 ml @ 100 mls/hr Q10H IV Last administered on 03/29/20at 0 0:07; Start 03/27/20 at 17:05 Enoxaparin Sodium (Lovenox 40mg Syringe) 40 mg Q24H SQ ; Start 03/27/20 at 21:00 Morphine Sulfate (Morphine Sulfate) 2 mg PRN Q2HR PRN IV SEVERE PAIN 7-10; Start 03/27/20 at 04:00; Stop 03/28/20 at 03:59; Status DC Info (Non-Icu Electrolyte Protocol) 1 ea CONT PRN PRN MC PER PROTOCOL; Start 03/27/20 at 17:15 Iohexol (Omnipaque 300 Mg/ml) 50 ml STK-MED ONCE .ROUTE Last administered on 03/29/20at 08:20; Start 03/29/20 at 06:53; Stop 03/29/20 at 06:53; Status DC Cellulose (Surgicel Hemostat 4x8) 1 each STK-MED ONCE .ROUTE ; Start 03/29/20 at 06:53; Stop 03/29/20 at 06:53; Status DC Bupivacaine HCl (Sensorcaine Mpf 0.5%) 30 ml STK-MED ONCE .ROUTE Last administered on 03/29/20at 08:19; Start 03/29/20 at 06:53; Stop 03/29/20 at 0 6:53; Status DC Rocuronium [place] (Zemuron) 50 mg STK-MED ONCE .ROUTE ; Start 03/29/20 at 07:20; Stop 03/29/20 at 07:20; Status DC Midazolam HCl (Versed) 2 mg STK-MED ONCE .ROUTE ; Start 03/29/20 at 07:20; Stop 03/29/20 at 07:20; Status DC Fentanyl Citrate (Fentanyl 5ml Vial) 250 mcg STK-MED ONCE .ROUTE ; Start 03/29/20 at 07:20; Stop 03/29/20 at 07:21; Status DC Cefazolin Sodium (Ancef) 1 gm STK-MED ONCE IVP ; Start 03/29/20 at 07:31; Stop 03/29/20 at 07:31; Status DC Cefazolin Sodium/ Dextrose 50 ml @ 100 mls/hr 1X ONCE IV Last administered on 03/29/20at 07:43; Start 03/29/20 at 07:45; Stop 03/29/20 at 08:14; Status DC Glycopyrrolate (Robinul) 1 mg STK-MED ONCE .ROUTE ; Start 03/29/20 at 08:50; Stop 03/29/20 at 08:50; Status DC Neostigmine [place] (Neostigmine Methylsulfate) 5 mg STK-MED ONCE .ROUTE ; Start 03/29/20 at 08:50; Stop 03/29/20 at 08:50; Status DC Acetaminophen/ Hydrocodone Bitart (Lortab 5/325) 1 tab PRN Q4HRS PRN PO MODERATE PAIN Last administered on 03/30/20at 05:05; Start 03/29/20 at 09:00 Acetaminophen/ Hydrocodone Bitart (Lortab 5/325) 2 tab PRN Q4HRS PRN PO SEVERE PAIN; Start 03/29/20 at 09:00 Sevoflurane (Ultane) 60 ml STK-MED ONCE IH ; Start 03/29/20 at 09:15; Stop 03/29/20 at 09:15; Status DC Propofol (Diprivan) 200 mg STK-MED ONCE IV ; Start 03/29/20 at 09:16; Stop 03/29/20 at 09:16; Status DC Lidocaine HCl (Lidocaine Pf 2% Vial) 5 ml STK-MED ONCE .ROUTE ; Start 03/29/20 at 09:16; Stop 03/29/20 at 09:16; Status DC Ondansetron HCl (Zofran) 4 mg STK-MED ONCE .ROUTE ; Start 03/29/20 at 09:16; Stop 03/29/20 at 09:16; Status DC Dexamethasone Sodium Phosphate (Decadron) 4 mg STK-MED ONCE .ROUTE ; Start 03/29/20 at 09:16; Stop 03/29/20 at 09:16; Status DC Fentanyl Citrate (Fentanyl 2ml Vial) 25 mcg PRN Q5MIN PRN IV MILD PAIN 1-3; Start 03/29/20 at 09:30; Stop 03/29/20 at 12:24; Status DC Fentanyl Citrate (Fentanyl 2ml Vial) 50 mcg PRN Q5MIN PRN IV MODERATE TO SEVERE PAIN Last administered on 03/29/20at 10:04; Start 03/29/20 at 09:30; Stop 03/29/20 at 12:24; Status DC Morphine Sulfate (Morphine Sulfate) 2 mg PRN Q10MIN PRN IV MILD PAIN 1-3; Start 03/29/20 at 09:30; Stop 03/29/20 at 12:24; Status DC Hydromorphone HCl (Dilaudid) 0.5 mg PRN Q10MIN PRN IV Moderate to severe pain; Start 03/29/20 at 09:30; Stop 03/29/20 at 12:24; Status DC Prochlorperazine Edisylate (Compazine) 5 mg PRN Q6HRS PRN IV Nausea/Vomiting, 1st Choice; Start 03/29/20 at 09:30; Stop 03/29/20 at 12:24; Status DC Fentanyl Citrate (Fentanyl 2ml Vial) 100 mcg STK-MED ONCE .ROUTE ; Start 03/29/20 at 10:01; Stop 03/29/20 at 10:01; Status DC Potassium Chloride (Klor-Con) 40 meq 1X ONCE PO Last administered on 03/29/20at 17:49; Start 03/29/20 at 13:00; Stop 03/29/20 at 13:01; Status DC Active Scripts Active Hydrocodone-Apap 5-325 (Hydrocodone Bit/Acetaminophen) 1 Tab Tablet 1 Tab PO PRN Q4HRS PRN Reported [place] 5-325 Tablet (Acetaminophen/Hydrocodone Bitart) 1 Each Tablet 1 Tab PO PRN Q4-6HRS PRN Vitamin D3 (Cholecalciferol (Vitamin D3)) 1,250 Mcg Capsule 5,000 Mcg PO DAILY Hydroxychloroquine Sulfate 200 Mg Tablet 200 Mg PO BID Lisinopril-Hctz 10-12.5 Mg Tab (Lisinopril/Hydrochlorothiazide) 1 Each Tablet 1 Tab PO DAILY Fish Oil ([place]-3 Fatty Acids) 500 Mg Capsule 500 Mg PO Calcium (Calcium Carbonate) 600 Mg Tablet 600 Mg PO Aspir 81 (Aspirin) 81 Mg Tablet.dr 1 Tab PO DAILY Multi Vitamin Daily (Multivitamin) 1 Each Tablet 1 Each PO Levothyroxine Sodium 50 Mcg Tablet 1 Tab PO DAILY Pravastatin Sodium 80 Mg Tablet 1 Tab PO DAILY Combipatch 0.05-0.14 Mg Ptch (Estradiol/Norethindrone Acet) 1 Each Patch.tdsw 1 Patch TD TWICE WEEKLY Vital Signs Vital Signs Date Time Temp Pulse Resp B/P (MAP) Pulse Ox O2 Delivery O2 Flow Rate FiO2 03/30/20 10:29 97.9 72 18 96/55 (69) 94 Room Air 97.9 03/29/20 09:15 8 Labs Laboratory Tests Test 03/29/20 03:50 03/29/20 13:40 03/30/20 03:45 White Blood Count 2.4 x10^3/uL (4.0-11.0) 3.4 x10^3/uL (4.0-11.0) Red Blood Count 3.83 x10^6/uL (3.50-5.40) 3.46 x10^6/uL (3.50-5.40) Hemoglobin 12.0 g/dL (12.0-15.5) 10.8 g/dL (12.0-15.5) Hematocrit 34.0 % (36.0-47.0) 31.0 % (36.0-47.0) Mean Corpuscular Volume 89 fL (79-100) 90 fL (79-100) Mean Corpuscular Hemoglobin 31 pg (25-35) 31 pg (25-35) Mean Corpuscular Hemoglobin Concent 35 g/dL (31-37) 35 g/dL (31-37) Red Cell Distribution Width 12.8 % (11.5-14.5) 13.1 % (11.5-14.5) Platelet Count 126 x10^3/uL (140-400) 149 x10^3/uL (140-400) Neutrophils (%) (Auto) 71 % (31-73) 70 % (31-73) Lymphocytes (%) (Auto) 17 % (24-48) 20 % (24-48) Monocytes (%) (Auto) 10 % (0-9) 9 % (0-9) Eosinophils (%) (Auto) 2 % (0-3) 1 % (0-3) Basophils (%) (Auto) 1 % (0-3) 1 % (0-3) Neutrophils # (Auto) 1.7 x10^3/uL (1.8-7.7) 2.4 x10^3/uL (1.8-7.7) Lymphocytes # (Auto) 0.4 x10^3/uL (1.0-4.8) 0.7 x10^3/uL (1.0-4.8) Monocytes # (Auto) 0.2 x10^3/uL (0.0-1.1) 0.3 x10^3/uL (0.0-1.1) Eosinophils # (Auto) 0.0 x10^3/uL (0.0-0.7) 0.0 x10^3/uL (0.0-0.7) Basophils # (Auto) 0.0 x10^3/uL (0.0-0.2) 0.0 x10^3/uL (0.0-0.2) Sodium Level 142 mmol/L (136-145) 140 mmol/L (136-145) Potassium Level 3.4 mmol/L (3.5-5.1) 4.0 mmol/L (3.5-5.1) Chloride Level 106 mmol/L (98-107) 105 mmol/L (98-107) Carbon Dioxide Level 24 mmol/L (21-32) 26 mmol/L (21-32) Anion Gap 12 (6-14) 9 (6-14) Blood Urea Nitrogen 7 mg/dL (7-20) 8 mg/dL (7-20) Creatinine 0.6 mg/dL (0.6-1.0) 0.6 mg/dL (0.6-1.0) Estimated GFR (Cockcroft-Gault) 100.0 100.0 BUN/Creatinine Ratio 12 (6-20) 13 (6-20) Glucose Level 98 mg/dL (70-99) 97 mg/dL (70-99) Calcium Level 8.0 mg/dL (8.5-10.1) 8.2 mg/dL (8.5-10.1) Total Bilirubin 0.6 mg/dL (0.2-1.0) 0.5 mg/dL (0.2-1.0) Aspartate Amino Transf (AST/SGOT) 226 U/L (15-37) 104 U/L (15-37) Alanine Aminotransferase (ALT/SGPT) 251 U/L (14-59) 183 U/L (14-59) Alkaline Phosphatase 269 U/L (46-116) 244 U/L (46-116) Total Protein 5.8 g/dL (6.4-8.2) 5.3 g/dL (6.4-8.2) Albumin 2.9 g/dL (3.4-5.0) 2.8 g/dL (3.4-5.0) Albumin/Globulin Ratio 1.0 (1.0-1.7) 1.1 (1.0-1.7) Vitamin B12 Level 706 pg/mL (247-911) Cytomegalovirus IgG Antibody >10.00 U/mL (0.00-0.59) Cytomegalovirus IgM Antibody <30.0 AU/mL (0.0-29.9) Fawad-Duenas Virus Capsid Ag IgG Ab 76.6 U/mL (0.0-17.9) Fawad-Duenas Virus Capsid Ag IgM Ab <36.0 U/mL (0.0-35.9) Fawad-Duenas Nuc Assoc Ag IgG Index 107.0 U/mL (0.0-17.9) Fawad-Duenas Virus Interpretation Comment (.) Laboratory Tests Test 03/29/20 13:40 03/30/20 03:45 Cytomegalovirus IgG Antibody >10.00 U/mL (0.00-0.59) Cytomegalovirus IgM Antibody <30.0 AU/mL (0.0-29.9) Fawad-Duenas Virus Capsid Ag IgG Ab 76.6 U/mL (0.0-17.9) Fawad-Duenas Virus Capsid Ag IgM Ab <36.0 U/mL (0.0-35.9) Fawad-Duenas Nuc Assoc Ag IgG Index 107.0 U/mL (0.0-17.9) Fawad-Duenas Virus Interpretation Comment (.) White Blood Count 3.4 x10^3/uL (4.0-11.0) Red Blood Count 3.46 x10^6/uL (3.50-5.40) Hemoglobin 10.8 g/dL (12.0-15.5) Hematocrit 31.0 % (36.0-47.0) Mean Corpuscular Volume 90 fL (79-100) Mean Corpuscular Hemoglobin 31 pg (25-35) Mean Corpuscular Hemoglobin Concent 35 g/dL (31-37) Red Cell Distribution Width 13.1 % (11.5-14.5) Platelet Count 149 x10^3/uL (140-400) Neutrophils (%) (Auto) 70 % (31-73) Lymphocytes (%) (Auto) 20 % (24-48) Monocytes (%) (Auto) 9 % (0-9) Eosinophils (%) (Auto) 1 % (0-3) Basophils (%) (Auto) 1 % (0-3) Neutrophils # (Auto) 2.4 x10^3/uL (1.8-7.7) Lymphocytes # (Auto) 0.7 x10^3/uL (1.0-4.8) Monocytes # (Auto) 0.3 x10^3/uL (0.0-1.1) Eosinophils # (Auto) 0.0 x10^3/uL (0.0-0.7) Basophils # (Auto) 0.0 x10^3/uL (0.0-0.2) Sodium Level 140 mmol/L (136-145) Potassium Level 4.0 mmol/L (3.5-5.1) Chloride Level 105 mmol/L (98-107) Carbon Dioxide Level 26 mmol/L (21-32) Anion Gap 9 (6-14) Blood Urea Nitrogen 8 mg/dL (7-20) Creatinine 0.6 mg/dL (0.6-1.0) Estimated GFR (Cockcroft-Gault) 100.0 BUN/Creatinine Ratio 13 (6-20) Glucose Level 97 mg/dL (70-99) Calcium Level 8.2 mg/dL (8.5-10.1) Total Bilirubin 0.5 mg/dL (0.2-1.0) Aspartate Amino Transf (AST/SGOT) 104 U/L (15-37) Alanine Aminotransferase (ALT/SGPT) 183 U/L (14-59) Alkaline Phosphatase 244 U/L (46-116) Total Protein 5.3 g/dL (6.4-8.2) Albumin 2.8 g/dL (3.4-5.0) Albumin/Globulin Ratio 1.1 (1.0-1.7) Allergies Allergies Coded Allergies Type Severity Reaction Last Updated Verified No Known Drug Allergies 03/05/20 No Disposition/Orders: D/C to Home Justicifation of Admission Dx: Justifications for Admission: Justification of Admission Dx: Yes HEENA RIOS MD Mar 30, 2020 11:10
[2020-03-30] MEDS ORDERED: ACET325T9 PO (11:12)
[2020-03-30] MEDS ORDERED: DOCU-153 PO (11:12)
[2020-03-30] MEDS ORDERED: PANT40TA77 PO (11:12)
--- NOTE | 2020-03-30 11:13 | DISCH ---
DISCHARGE INSTRUCTIONS Condition on Discharge Condition on Discharge: Stable Activity After Discharge Activity Instructions for Disc: Resume previous activity Lifting Instructions after Dis: No heavy lifting, No pulling or pushing, Do not lift >10 pounds Driving Instructions after Dis: Do not drive, Other, see below Diet after Discharge Diet after Discharge: Regular Liquid Texture: Thin Liquid Wound Incision Care Wound/Incision Care: Other, see below Checks after Discharge Checks after discharge: Check blood press - daily Contacting the DR. after DC Call your doctor for: If your condition worsens Follow-Up Follow up with: SURGERY SOON DIRECTED Follow Up With: GI SOON DIRECTED Treatment/Equipment after DC Adaptive Equipment Issued: None HEENA RIOS MD Mar 30, 2020 11:13
--- NOTE | 2020-03-30 13:42 | NUR ---
Patient discharge today. Patient ambulate and escort by an aid and her spouse. Patient is stable and discharge paperwork given to patient and patient verbalized understanding discharge instruction
== END 2020-03-30 13:47 | disposition home or self-care (01) | DRG 419 ==
LOC: ER 05:06 → 4 NORTH 07:30
PROVIDERS: ADMIT Internal Medicine; ATTEND Internal Medicine
PROC: BF121ZZ Fluoroscopy of Gallbladder using Low Osmolar Contrast (ICD-10-PCS; 2020-03-29)
PROC: 0FT44ZZ Resection of Gallbladder, Percutaneous Endoscopic Approach (ICD-10-PCS; principal; 2020-03-29 07:30)
DX: K80.00 Calculus of gallbladder with acute cholecystitis without obstruction (principal); E03.9 Hypothyroidism, unspecified; I10 Essential (primary) hypertension; E78.00 Pure hypercholesterolemia, unspecified; D70.9 Neutropenia, unspecified; E78.5 Hyperlipidemia, unspecified; K21.9 Gastro-esophageal reflux disease without esophagitis; M06.9 Rheumatoid arthritis, unspecified; K59.00 Constipation, unspecified; K75.9 Inflammatory liver disease, unspecified; K76.0 Fatty (change of) liver, not elsewhere classified; Z20.828 Contact with and (suspected) exposure to other viral communicable diseases; D69.6 Thrombocytopenia, unspecified; Z90.710 Acquired absence of both cervix and uterus; Z79.899 Other long term (current) drug therapy; Z83.3 Family history of diabetes mellitus; Z80.9 Family history of malignant neoplasm, unspecified; Z82.49 Family history of ischemic heart disease and other diseases of the circulatory system
CPT/HCPCS: 36415; 71045; 74300; 76705; 80048; 80053; 80076; 81001; 82550; 82607; 83605; 83690; 83735; 84100; 85025; 86644; 86645; 86664; 86665; 86705; 86709; 86803; 87086; 87340; 87426; 90686; 99285; A7015; J0690; J1100; J2250; J2405; J2704; J2710; J3010; J3490; J7030; J7120; Q9967; U0003; G0378

== ENCOUNTER → 2020-04-16 | Outpatient (CLI) | payer OTHER, MEDICARE ==
[2020-03-30 10:29] VITALS: BP 96/55
[~2020-04-16] MED LIST changes: +ACET325T9 PO; +DOCU-153 PO; +HYDR-2761 PO; -MORPHINE SULFATE 4 MG/ML VIAL. IV PRN; +PANT40TA77 PO
[2020-04-16 09:19] LABS: ALBUMIN 4.1 g/dL (3.4-5.0); DIRECT BILIRUBIN 0.1 mg/dL (0.0-0.2); TOTAL BILIRUBIN 0.5 mg/dL (0.2-1.0); TOTAL PROTEIN 7.5 g/dL (6.4-8.2)
== END ==
LOC: LAB 08:35
PROVIDERS: ATTEND Internal Medicine Gastroenterology
DX: R94.5 Abnormal results of liver function studies (principal)
CPT/HCPCS: 36415; 80076

== ENCOUNTER → 2020-05-11 | Outpatient (CLI) | payer OTHER, MEDICARE ==
[2020-05-11 08:14] LABS: BASO % 1 % (0-3); EOS # 0.1 x10^3/uL (0.0-0.7); EOS % 3 % (0-3); HEMATOCRIT 42.9 % (36.0-47.0); HEMOGLOBIN 14.7 g/dL (12.0-15.5); LYMPH # 1.5 x10^3/uL (1.0-4.8); LYMPH % 37 % (24-48); MEAN CORPUSCULAR HEMOGLOBIN 31 pg (25-35); MEAN CORPUSCULAR HGB CONC 34 g/dL (31-37); MEAN CORPUSCULAR VOLUME 91 fL (79-100); MONO # 0.3 x10^3/uL (0.0-1.1); MONO % 6 % (0-9); NEUT % 53 % (31-73); PLATELET COUNT 240 x10^3/uL (140-400); RED BLOOD COUNT 4.71 x10^6/uL (3.50-5.40); RED CELL DISTRIBUTION WIDTH 13.9 % (11.5-14.5); WHITE BLOOD COUNT 3.9 x10^3/uL (4.0-11.0)
[2020-05-11 09:01] LABS: ALBUMIN 4.3 g/dL (3.4-5.0); ALBUMIN/GLOBULIN RATIO 1.3 (1.0-1.7); CALCIUM 9.2 mg/dL (8.5-10.1); CREATININE 0.6 mg/dL (0.6-1.0); POTASSIUM 4.4 mmol/L (3.5-5.1); TOTAL BILIRUBIN 0.5 mg/dL (0.2-1.0); TOTAL PROTEIN 7.5 g/dL (6.4-8.2)
== END ==
LOC: LAB 07:01
PROVIDERS: ATTEND Nurse Practitioner Gerontology
DX: D72.9 Disorder of white blood cells, unspecified (principal); R74.8 Abnormal levels of other serum enzymes
CPT/HCPCS: 36415; 80053; 85025

== ENCOUNTER → 2021-01-01 | Outpatient (CLI) | payer OTHER, MEDICARE ==
[~2021-01-01] MED LIST changes: -CALC600T6 PO; +CALC600T60 PO; +DOCU-148 PO; -DOCU-153 PO
[2021-01-01 08:28] LABS: HEMATOCRIT 41.9 % (36.0-47.0); HEMOGLOBIN 14.9 g/dL (12.0-15.5); RED BLOOD COUNT 4.65 x10^6/uL (3.50-5.40); RED CELL DISTRIBUTION WIDTH 12.3 % (11.5-14.5); WHITE BLOOD COUNT 4.4 x10^3/uL (4.0-11.0)
[2021-01-01 08:44] LABS: ALBUMIN 4.4 g/dL (3.4-5.0); ALBUMIN/GLOBULIN RATIO 1.3 (1.0-1.7); CALCIUM 9.4 mg/dL (8.5-10.1); CREATININE 0.8 mg/dL (0.6-1.0); GFR 71.5; POTASSIUM 4.3 mmol/L (3.5-5.1); TOTAL BILIRUBIN 0.5 mg/dL (0.2-1.0); TOTAL PROTEIN 7.7 g/dL (6.4-8.2)
[2021-01-01 08:45] LABS: CHOLESTEROL/HDL RATIO 2.3
[2021-01-01 08:55] LABS: FREE T4 0.85 ng/dL (0.76-1.46); THYROID STIM HORMONE (TSH) 2.94 uIU/mL (0.358-3.74)
== END ==
LOC: LAB 07:10
PROVIDERS: ATTEND Family Medicine
DX: I10 Essential (primary) hypertension (principal); E78.5 Hyperlipidemia, unspecified; E03.9 Hypothyroidism, unspecified; M85.80 Other specified disorders of bone density and structure, unspecified site
CPT/HCPCS: 36415; 80053; 80061; 82306; 84439; 84443; 85027

== ENCOUNTER → 2021-02-27 | Outpatient (CLI) | payer OTHER ==
--- NOTE | 2021-02-27 15:08 | RAD ---
EXAM: Bilateral digital screening mammogram with tomosynthesis. HISTORY: 65-year-old female presents for screening mammography. The patient has undergone interval le ft breast benign excisional biopsy. TECHNIQUE: Full-field digital craniocaudal and mediolateral oblique 2D and 3D tomosynthesis images of both breasts are obtained for evaluation. Computer aided detection was applied. COMPARISON: MRI dated 01/06/2020, mammogram dated 02/09/2020 and 12/22/2019. BREAST PARENCHYMAL DENSITY: Level B - Scattered fibroglandular densities. FINDINGS: There is architectural distortion within the 3:00 position of the left breast at mid depth due to interval excisional biopsy. There has been slight interval increase in a circumscribed nodule slightly lateral to this location, the appearance of which favors a benign cystic etiology. There are additional areas of asymmetry and nodularity within both breasts which are stable in appearance. IMPRESSION: BI-RADS Category 0: Incomplete. Additional imaging needed. RECOMMENDATION: Further evaluation with a left breast sonogram is recommended to assess increasing no dularity within the 3:00 position at mid depth. If your mammogram demonstrates that you have dense breast tissue, which could hide abnormalities, and if you have other risk factors for breast cancer that have been identified, you might benefit from s upplemental screening tests that may be suggested by your ordering physician. Dense breast tissue, i n and of itself, is a relatively common condition. This information is not provided to cause undue c oncern, but rather to raise your awareness and to promote discussion with your physician regarding th e presence of other risk factors, in addition to dense breast tissue. A report of your mammography re sults will be sent to you and your physician. You should contact your physician if you have any ques tions or concerns regarding this report. Mammography is a sensitive method for finding small breast cancers, but it does not detect them all a nd is not a substitute for careful clinical examination. A negative mammogram does not negate a clin ically suspicious finding and should not result in delay in biopsying a clinically suspicious abnorma lity. PQRS compliance statement - Patient information was entered into a reminder system with a target due date for the next mammogram. "Our facility is accredited by the [employer] Mammography Program." Electronically signed by: Arianne Owen MD (02/27/2021 3:06 PM) [id number]
== END ==
LOC: MAMMO 14:44
PROVIDERS: ATTEND Obstetrics & Gynecology
DX: Z12.31 Encounter for screening mammogram for malignant neoplasm of breast (principal)
CPT/HCPCS: 77063; 77067

== ENCOUNTER → 2021-03-13 | Outpatient (CLI) | payer OTHER ==
[~2021-03-13] MED LIST changes: -LISI1TAB23 PO; +LISI1TAB35 PO
--- NOTE | 2021-03-13 15:23 | RAD ---
US BREAST LT History:Reason: Call Back LT Breast from Mamm 02-27-21 / [facility] Instructions: / History: Comparison: Mammogram February 27, 2021. Ultrasound December 22, 2019 and mammogram December 22, 2019. Technique: Sonographic examination of the left breast was performed and multiple static images were obtained. Findings: Left breast postoperative excisional biopsy changes at the 3:00 position corresponding with mammograp hic architectural distortion. Small hypoechoic lesion 4:00 position 5 cm from the nipple measures 0.4 x 0.4 cm corresponding with mammographic finding. No suspicious posterior shadowing. Focal ductal di latation 3:00 position 5 cm from the nipple no pathologic lymphadenopathy within the left axilla. Impression: 1. Small hypoechoic lesion corresponds with mammographic finding, may represent complicated cyst. Re commend 6 month follow-up left breast ultrasound. 2. Mild focal ductal dilatation. Recommend attention on follow-up. BI-RADS Category 3: Probably Benign. Recommend 6 month left breast ultrasound. Electronically signed by: Maico Pacheco DO (03/13/2021 3:21 PM) [id number]
== END ==
LOC: EDSEX → US 14:44
PROVIDERS: ATTEND Obstetrics & Gynecology
DX: N64.89 Other specified disorders of breast (principal); R92.8 Other abnormal and inconclusive findings on diagnostic imaging of breast
CPT/HCPCS: 76641

== ENCOUNTER → 2021-04-05 | Outpatient (CLI) | payer OTHER ==
[2021-04-05 08:07] LABS: BASO % 1 % (0-3); EOS # 0.2 x10^3/uL (0.0-0.7); EOS % 4 % (0-3); HEMATOCRIT 43.1 % (36.0-47.0); HEMOGLOBIN 14.8 g/dL (12.0-15.5); LYMPH # 1.5 x10^3/uL (1.0-4.8); LYMPH % 31 % (24-48); MEAN CORPUSCULAR HEMOGLOBIN 31 pg (25-35); MEAN CORPUSCULAR HGB CONC 34 g/dL (31-37); MEAN CORPUSCULAR VOLUME 91 fL (79-100); MONO # 0.3 x10^3/uL (0.0-1.1); MONO % 7 % (0-9); NEUT # 2.7 x10^3/uL (1.8-7.7); NEUT % 58 % (31-73); PLATELET COUNT 238 x10^3/uL (140-400); RED BLOOD COUNT 4.74 x10^6/uL (3.50-5.40); RED CELL DISTRIBUTION WIDTH 12.6 % (11.5-14.5); WHITE BLOOD COUNT 4.7 x10^3/uL (4.0-11.0)
[2021-04-05 08:36] LABS: ALBUMIN 4.4 g/dL (3.4-5.0); ALBUMIN/GLOBULIN RATIO 1.5 (1.0-1.7); C-REACTIVE PROTEIN 1.4 mg/L (0-3.3); CALCIUM 9.2 mg/dL (8.5-10.1); CREATININE 0.7 mg/dL (0.6-1.0); GFR 83.5; POTASSIUM 4.3 mmol/L (3.5-5.1); TOTAL BILIRUBIN 0.4 mg/dL (0.2-1.0); TOTAL PROTEIN 7.4 g/dL (6.4-8.2)
== END ==
LOC: EDSEX → LAB 06:52
PROVIDERS: ATTEND Internal Medicine Rheumatology
DX: M25.50 Pain in unspecified joint (principal)
CPT/HCPCS: 36415; 80053; 85025; 85651; 86140

== ENCOUNTER → 2021-08-28 | Outpatient (CLI) | payer OTHER ==
--- NOTE | 2021-08-28 09:47 | RAD ---
EXAMINATION: US BREAST LT CLINICAL HISTORY: Six-month follow-up left breast mass TECHNIQUE: Targeted left breast ultrasound with grayscale and color Doppler images obtained in the up per outer quadrant and axilla. COMPARISON: 03/13/2021 FINDINGS: At 4:00 position 5 cm from the nipple, there is a 6 x 4 x 4 mm circumscribed oval hypoechoic mass wit h posterior acoustic enhancement, previously 4 x 4 by 4 mm with less circumscribed margins. This agai n may represent a minimally complicated cyst. Similar-appearing mild ductal ectasia at 3:00 position 5 cm from the nipple and postoperative changes related to excisional biopsy at 3:00 position. No suspicious findings in the axilla. IMPRESSION: Probably benign 6 mm mass at 4:00 position in the left breast. Recommend follow-up in 6 months with b ilateral mammogram to serve as annual screening on the right and diagnostic follow-up on the left as well as targeted left breast ultrasound. BI-RADS ASSESSMENT: Category 3: Probably Benign RECOMMENDATION: Bilateral diagnostic mammogram and left breast ultrasound in 6 months. PQRS compliance statement - Patient information was entered into a reminder system with a target due date for the next mammogram. "Our facility is accredited by the [employer]." Electronically signed by: Tonio Rebollar DO (08/28/2021 9:44 AM) [id number]
== END ==
LOC: US 08:49
PROVIDERS: ATTEND Obstetrics & Gynecology
DX: N63.23 Unspecified lump in the left breast, lower outer quadrant (principal); Z98.890 Other specified postprocedural states
CPT/HCPCS: 76641